=== PATIENT | male | born 1970 | race American Indian/Alaskan Native ===

== ENCOUNTER 2016-04-27 09:21 | Emergency (ER) | payer OTHER ==
[2016-04-27] MEDS ORDERED: MORPHINE IV ONE (13:36)
[2016-04-27] MEDS ORDERED: ZOFRAN IV ONE (13:36)
[2016-04-27] MEDS ORDERED: NACL 0.9% 1000 ML 1,000 ML IV ONE (13:45)
[2016-04-27 14:14] LABS: Basophils % (Auto) 1.2 % (0.0-1.8); Eosinophils % (Auto) 2.8 % (0.0-4.3); Hematocrit 40.5 % (35.5-45.6); Mean Corpuscular HGB Conc 35 % (32-34); Mean Corpuscular Hemoglobin 30 pg (28-32); Mean Corpuscular Volume 87 fl (84-94); Platelet Count 526 K/mm3 (140-440); Red Blood Count 4.65 M/mm3 (3.65-5.03); Red Cell Distribution Width 14.6 % (13.2-15.2); White Blood Count 8.7 K/mm3 (4.5-11.0)
[2016-04-27 14:23] LABS: Anion Gap 20 mmol/L; Blood Urea Nitrogen 10 mg/dL (9-20); Calcium 9.3 mg/dL (8.4-10.2); Carbon Dioxide 26 mmol/L (22-30); Chloride 100.7 mmol/L (98-107); Glucose 81 mg/dL (75-100); Potassium 4.4 mmol/L (3.6-5.0); Sodium 142 mmol/L (137-145)
[2016-04-27 14:24] LABS: Creatine Kinase MB 3.7 ng/mL (0.0-4.0)
[2016-04-27 14:26] LABS: Creatine Kinase 618 units/L (55-170)
[2016-04-27 14:38] LABS: Urine Drugs of Abuse Note Disclamer
[2016-04-27 14:52] LABS: Bilirubin,Urine NEG (Negative); Blood,Urine NEG (Negative); Ketones,Urine NEG (Negative); Leukocyte Esterase,Urine NEG (Negative); Mucus,Urine FEW /HPF; Nitrite,Urine NEG (Negative); Protein,Urine <15 mg/dL mg/dL (Negative); RBC,Urine < 1.0 /HPF (0.0-6.0); Urobilinogen,Urine < 2.0 mg/dL (<2.0)
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
--- NOTE | 2016-04-27 16:33 | Cat Scan Report ---
CT scan of abdomen and pelvis with IV contrast: Compared to 02/20/14. History: Right lower quadrant tenderness. Findings: Normal liver spleen and pancreas and gallbladder. No hydronephrosis. Normal bladder. No free intraperitoneal fluid. No evidence of adenopathy. Normal aorta. Gaseous colon with stool in colon. Diverticulosis sigmoid colon. No evidence of appendicitis. Impression: Stable cyst in right and left kidney. No hydronephrosis. No evidence of appendicitis. Diverticulosis sigmoid colon.
[2016-04-27 18:16] VITALS: BP 150/100
== END 2016-04-27 18:13 | disposition home or self-care (01) ==
LOC: ED 09:21
DX: T50.995A Adverse effect of other drugs, medicaments and biological substances, initial encounter (principal); I10 Essential (primary) hypertension; R00.2 Palpitations; F17.200 Nicotine dependence, unspecified, uncomplicated; Y92.9 Unspecified place or not applicable
CPT/HCPCS: 36415; 70450; 74177; 80048; 80307; 81001; 82550; 82553; 84439; 84443; 84484; 85025; 93005; 93010; 96361; 96374; 96375; 99284; J2270; J2405; J7030; Q9967

== ENCOUNTER 2017-04-04 09:08 | Emergency (ER) | payer SELFPAY ==
[2017-04-04 09:23] VITALS: BP 140/88
[2017-04-04 10:04] LABS: Basophils % (Auto) 0.6 % (0.0-1.8); Eosinophils % (Auto) 1.3 % (0.0-4.3); Hematocrit 43.9 % (35.5-45.6); Hemoglobin 15.1 gm/dl (11.8-15.2); Mean Corpuscular HGB Conc 34 % (32-34); Mean Corpuscular Hemoglobin 31 pg (28-32); Mean Corpuscular Volume 90 fl (84-94); Platelet Count 483 K/mm3 (140-440); Red Blood Count 4.91 M/mm3 (3.65-5.03); Red Cell Distribution Width 14.3 % (13.2-15.2); White Blood Count 8.6 K/mm3 (4.5-11.0)
[2017-04-04 10:28] LABS: Alanine Aminotransferase 35 units/L (7-56); Albumin 4.6 g/dL (3.9-5); Albumin/Globulin Ratio 1.4 %; Alkaline Phosphatase 69 units/L (35-129); Anion Gap 18 mmol/L; BUN/Creatinine Ratio 16; Blood Urea Nitrogen 11 mg/dL (9-20); Calcium 9.6 mg/dL (8.4-10.2); Carbon Dioxide 25 mmol/L (22-30); Chloride 97.5 mmol/L (98-107); Glucose 91 mg/dL (75-100); Lipase 55 units/L (13-60); Potassium 4.7 mmol/L (3.6-5.0); Sodium 136 mmol/L (137-145); Total Protein 7.9 g/dL (6.3-8.2)
[2017-04-04 10:42] LABS: Bilirubin,Urine NEG (Negative); Blood,Urine NEG (Negative); Ketones,Urine NEG (Negative); Leukocyte Esterase,Urine NEG (Negative); Nitrite,Urine NEG (Negative); Protein,Urine <15 mg/dL mg/dL (Negative); Urobilinogen,Urine < 2.0 mg/dL (<2.0); WBC,Urine < 1.0 /HPF (0.0-6.0)
== END 2017-04-04 10:02 | disposition left against medical advice (07) ==
LOC: ED 09:08
DX: R51 Headache (principal); R10.9 Unspecified abdominal pain; Z53.21 Procedure and treatment not carried out due to patient leaving prior to being seen by health care provider
CPT/HCPCS: 36415; 80053; 81001; 83690; 85025

== ENCOUNTER 2018-06-17 06:36 | Inpatient (IN) | payer OTHER, SELFPAY ==
[2018-06-17] MEDS ORDERED: TYLENOL ONE (06:58)
[2018-06-17] MEDS ORDERED: TYLENOL PO ONE (07:00)
[2018-06-17] MEDS ORDERED: NACL 0.9% 1000 ML 1,000 ML IV ONE ×2 (07:00→07:32)
[2018-06-17] MEDS ORDERED: ZOSYN/NS 4.5GM/100ML 4.5 GM/100 ML VIAL IV ONE (07:30)
[2018-06-17] MEDS ORDERED: PROTONIX IV ONE (07:32)
[2018-06-17] MEDS ORDERED: ZOFRAN IV ONE (07:32)
[2018-06-17] MEDS ORDERED: MORPHINE IV ONE ×2 (07:32→09:07)
--- NOTE | 2018-06-17 07:47 | XRay Report ---
AP CHEST: HISTORY: Hypertension AP view of the chest demonstrates a normal mediastinal and cardiac contour with clear lungs and normal bony and soft tissue structures. No significant change since 03/02/16. IMPRESSION: Unremarkable AP chest.
[2018-06-17 07:50] LABS: Basophils # (Auto) 0.1 K/mm3 (0.0-0.1); Basophils % (Auto) 0.7 % (0.0-1.8); Eosinophils # (Auto) 0.1 K/mm3 (0.0-0.4); Eosinophils % (Auto) 0.4 % (0.0-4.3); Hematocrit 40.4 % (35.5-45.6); Hemoglobin 14.3 gm/dl (11.8-15.2); Lymphocytes # (Auto) 1.2 K/mm3 (1.2-5.4); Lymphocytes % (Auto) 8.8 % (13.4-35.0); Mean Corpuscular HGB Conc 35 % (32-34); Mean Corpuscular Volume 90 fl (84-94); Monocytes # (Auto) 1.3 K/mm3 (0.0-0.8); Monocytes % (Auto) 9.5 % (0.0-7.3); Platelet Count 424 K/mm3 (140-440); Red Blood Count 4.47 M/mm3 (3.65-5.03); Red Cell Distribution Width 14.3 % (13.2-15.2)
[2018-06-17 08:09] LABS: Creatine Kinase MB 2.3 ng/mL (0.0-4.0)
[2018-06-17 08:11] LABS: Alanine Aminotransferase 35 units/L (7-56); Albumin 4.4 g/dL (3.9-5)
[2018-06-17 08:13] LABS: Bilirubin,Direct < 0.2 mg/dL (0-0.2)
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
--- NOTE | 2018-06-17 09:21 | Cat Scan Report ---
CT ABDOMEN PELVIS WITH CONTRAST: HISTORY: Peritonitis. COMPARISON: 04/27/16. TECHNIQUE: Helical CT in 1.25mm intervals following IV contrast. Sagittal and coronal reconstructions. FINDINGS: Lung bases: Normal. Liver: Normal. Biliary system: Normal. Pancreas: Normal. 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 There are 3 small splenule remaining in the left upper quadrant. Please correlate with history. Kidneys/ureters/bladder: Multiple small bilateral renal cysts are identified measuring up to 2 cm. No obvious mass, nephrolithiasis or hydronephrosis. The collecting systems and bladder are unremarkable. Adrenal glands: Normal. Aorta: Normal. Intestines: Diverticulosis of the distal colon is identified. There is a focus of circumferential thickening and inflammation in the mid descending colon consistent with acute diverticulitis. No evidence for free air or abscess at this time. Appendix: Normal. Pelvic viscera: Normal. Ascites: None. Adenopathy: None. Musculoskeletal: Normal. IMPRESSION: Acute diverticulitis of the descending colon. Bilateral renal cysts.
[2018-06-17] MEDS ORDERED: DILAUDID IV ONE (09:58)
[2018-06-17 09:59] LABS: Alanine Aminotransferase 35 units/L (7-56); Albumin 4.4 g/dL (3.9-5); BUN/Creatinine Ratio 14; Blood Urea Nitrogen 13 mg/dL (9-20); Calcium 9.4 mg/dL (8.4-10.2); Hemolysis Index 5
[2018-06-17] MEDS ORDERED: DILAUDID ONE (10:02)
[2018-06-17] MEDS ORDERED: FLAGYL 500 MG/100 ML 500 MG/100 ML BAG IV ONE (10:10)
[2018-06-17] MEDS: FLAGYL 500 MG/100 ML 500 MG/100 ML BAG IV SCH ×3 (10:13→21:42)
[2018-06-17] MEDS ORDERED: ASPIRIN PR ONE ×2 (10:19→11:35)
[2018-06-17 10:31] LABS: Bilirubin,Urine NEG (Negative); Blood,Urine NEG (Negative); Color,Urine Yellow (Yellow); Protein,Urine <15 mg/dL mg/dL (Negative); RBC,Urine < 1.0 /HPF (0.0-6.0); Urobilinogen,Urine < 2.0 mg/dL (<2.0); WBC,Urine < 1.0 /HPF (0.0-6.0)
[2018-06-17] MEDS ORDERED: APRESOLINE IV PRN (13:00)
[2018-06-17] MEDS ORDERED: MORPHINE IV PRN (13:02)
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
[2018-06-17] MEDS ORDERED: MAGNESIUM SULFATE IV ONE (13:07)
--- NOTE | 2018-06-17 13:24 | Progress Note ---
Assessment and Plan Full consult dictated 48 y/o male acute diverticulitis. no evidence of perforation or abscess formation at this time Abd - tender. + guarding LUQ imp: as above rec NPO except ice chips and meds IVF IV antibiotics will follow Selected Entries 06/17/18 12:53 Temperature 99.6 F Pulse Rate 81 Respiratory 20 Rate Blood Pressure 158/99 Laboratory Tests 06/17/18 06/17/18 06/17/18 07:25 07:25 07:34 WBC 13.5 H Hgb 14.3 Hct 40.4 Sodium 136 L Potassium 4.1 Chloride 101.8 Carbon Dioxide 25 BUN 13 Creatinine 0.9 Lactic Acid 2.50 H* Objective Vital Signs - 12hr 06/17/18 06/17/18 06/17/18 06:42 07:00 07:31 Temperature 100.2 F H Pulse Rate 98 H 93 H 98 H Respiratory 24 30 H 29 H Rate Blood Pressure 166/108 159/104 165/102 Blood Pressure [Left] O2 Sat by Pulse 100 98 Oximetry 06/17/18 06/17/18 06/17/18 07:52 08:00 08:19 Temperature Pulse Rate 94 H Respiratory 16 20 16 Rate Blood Pressure 166/100 Blood Pressure [Left] O2 Sat by Pulse 98 Oximetry 06/17/18 06/17/18 06/17/18 08:22 08:30 09:00 Temperature Pulse Rate 102 H 99 H Respiratory 16 21 13 Rate Blood Pressure 151/99 Blood Pressure [Left] O2 Sat by Pulse 96 98 Oximetry 06/17/18 06/17/18 06/17/18 09:11 09:15 09:21 Temperature Pulse Rate 94 H 101 H Respiratory 20 17 11 L Rate Blood Pressure 146/94 Blood Pressure [Left] O2 Sat by Pulse 97 97 Oximetry 06/17/18 06/17/18 06/17/18 09:30 09:41 09:51 Temperature Pulse Rate 95 H 94 H 96 H Respiratory 21 16 26 H Rate Blood Pressure 153/96 153/96 164/101 Blood Pressure [Left] O2 Sat by Pulse 96 Oximetry 06/17/18 06/17/18 06/17/18 10:00 10:05 10:11 Temperature Pulse Rate 90 91 H Respiratory 22 18 14 Rate Blood Pressure 168/106 168/106 Blood Pressure [Left] O2 Sat by Pulse 95 99 Oximetry 0306/17/18 06/17/18 10:21 10:30 10:35 Temperature Pulse Rate 91 H 93 H Respiratory 10 L 14 16 Rate Blood Pressure 158/93 157/94 Blood Pressure [Left] O2 Sat by Pulse 98 95 Oximetry 06/17/18 06/17/18 06/17/18 10:41 10:51 11:00 Temperature Pulse Rate 90 86 85 Respiratory 18 17 13 Rate Blood Pressure 157/94 157/94 147/85 Blood Pressure [Left] O2 Sat by Pulse 98 99 95 Oximetry 06/17/18 06/17/18 06/17/18 11:11 11:21 11:30 Temperature Pulse Rate 86 82 84 Respiratory 16 17 18 Rate Blood Pressure 147/85 147/85 146/87 Blood Pressure [Left] O2 Sat by Pulse 99 98 97 Oximetry 06/17/18 06/17/18 06/17/18 11:37 11:41 11:51 Temperature Pulse Rate 90 83 85 Respiratory 16 19 16 Rate Blood Pressure 146/87 152/93 Blood Pressure 146/87 [Left] O2 Sat by Pulse 98 98 98 Oximetry 06/17/18 06/17/18 06/17/18 12:00 12:08 12:11 Temperature 98.5 F Pulse Rate 82 80 Respiratory 15 19 Rate Blood Pressure 148/90 148/90 Blood Pressure [Left] O2 Sat by Pulse 97 98 Oximetry 06/17/18 12:53 Temperature 99.6 F Pulse Rate 81 Respiratory 20 Rate Blood Pressure 158/99 Blood Pressure [Left] O2 Sat by Pulse 96 Oximetry - Labs 06/17/18 07:25 06/17/18 07:25 Diabetes panel 06/17/18 06/17/18 Range/Units 07:25 07:34 Sodium 136 L (137-145) mmol/L Potassium 4.1 (3.6-5.0) mmol/L Chloride 101.8 (98-107) mmol/L Carbon Dioxide 25 (22-30) mmol/L BUN 13 (9-20) mg/dL Creatinine 0.9 (0.8-1.5) mg/dL Glucose 96 (75-100) mg/dL Calcium 9.4 (8.4-10.2) mg/dL AST 28 29 (5-40) units/L ALT 35 35 (7-56) units/L Alkaline Phosphatase 64 66 (35-129) units/L Total Protein 7.4 7.4 (6.3-8.2) g/dL Albumin 4.4 4.4 (3.9-5) g/dL Calcium panel 06/17/18 06/17/18 Range/Units 07:25 07:34 Calcium 9.4 (8.4-10.2) mg/dL Albumin 4.4 4.4 (3.9-5) g/dL Pituitary panel 06/17/18 Range/Units 07:25 Sodium 136 L (137-145) mmol/L Potassium 4.1 (3.6-5.0) mmol/L Chloride 101.8 (98-107) mmol/L Carbon Dioxide 25 (22-30) mmol/L BUN 13 (9-20) mg/dL Creatinine 0.9 (0.8-1.5) mg/dL Glucose 96 (75-100) mg/dL Calcium 9.4 (8.4-10.2) mg/dL Adrenal panel 06/17/18 06/17/18 Range/Units 07:25 07:34 Sodium 136 L (137-145) mmol/L Potassium 4.1 (3.6-5.0) mmol/L Chloride 101.8 (98-107) mmol/L Carbon Dioxide 25 (22-30) mmol/L BUN 13 (9-20) mg/dL Creatinine 0.9 (0.8-1.5) mg/dL Glucose 96 (75-100) mg/dL Calcium 9.4 (8.4-10.2) mg/dL Total Bilirubin 0.50 0.50 (0.1-1.2) mg/dL AST 28 29 (5-40) units/L ALT 35 35 (7-56) units/L Alkaline Phosphatase 64 66 (35-129) units/L Total Protein 7.4 7.4 (6.3-8.2) g/dL Albumin 4.4 4.4 (3.9-5) g/dL
[2018-06-17] MEDS: D5NS 1,000 ML IV SCH (13:36)
[2018-06-17] MEDS ORDERED: MAGNESIUM SULFATE 1 GM in NACL 0.9% 50 ML IV ONE (14:00)
[2018-06-17] MEDS: DILAUDID IV PRN ×3 (14:08→20:21)
[2018-06-17] MEDS: ZOFRAN IV PRN ×2 (14:08→22:27)
[2018-06-17] MEDS: LEVAQUIN 750MG/150ML 750 MG/150 ML BAG IV SCH (17:25)
[2018-06-17] MEDS: MORPHINE IV PRN ×2 (18:13→22:27)
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
[2018-06-18] MEDS: DILAUDID IV PRN ×4 (01:53→23:25)
[2018-06-18] MEDS: D5NS 1,000 ML IV SCH ×2 (02:02→16:14)
[2018-06-18] MEDS ORDERED: ATIVAN IV PRN (03:29)
[2018-06-18] MEDS: MORPHINE IV PRN ×3 (04:28→21:06)
[2018-06-18] MEDS: FLAGYL 500 MG/100 ML 500 MG/100 ML BAG IV SCH ×3 (05:11→21:01)
[2018-06-18 06:10] LABS: BUN/Creatinine Ratio 10; Blood Urea Nitrogen 7 mg/dL (9-20); Calcium 9.1 mg/dL (8.4-10.2); Hemolysis Index 5
[2018-06-18 06:24] LABS: Basophils # (Auto) 0.1 K/mm3 (0.0-0.1); Basophils % (Auto) 0.4 % (0.0-1.8); Eosinophils % (Auto) 0.2 % (0.0-4.3); Hematocrit 40.1 % (35.5-45.6); Hemoglobin 13.5 gm/dl (11.8-15.2); Lymphocytes # (Auto) 1.3 K/mm3 (1.2-5.4); Lymphocytes % (Auto) 9.2 % (13.4-35.0); Mean Corpuscular HGB Conc 34 % (32-34); Mean Corpuscular Volume 91 fl (84-94); Monocytes # (Auto) 0.9 K/mm3 (0.0-0.8); Monocytes % (Auto) 6.1 % (0.0-7.3); Platelet Count 406 K/mm3 (140-440); Red Blood Count 4.41 M/mm3 (3.65-5.03)
--- NOTE | 2018-06-18 07:49 | Progress Note ---
Assessment and Plan Pt states "feeling better" Abd still significantly tender. 1+ distention wbc slightly elevated from previous results imp: significant diverticulitis stable ID eval continue present care Selected Entries 06/18/18 05:12 Temperature 98.1 F Pulse Rate 88 Respiratory 18 Rate Blood Pressure 143/93 Laboratory Tests 06/17/18 06/18/18 06/18/18 07:25 04:41 04:41 WBC 13.5 H 14.2 H Hgb 13.5 Hct 40.1 Sodium 135 L Potassium 4.2 Chloride 97.4 L Carbon Dioxide 26 Anion Gap 16 BUN 7 L Creatinine 0.7 L Objective Vital Signs - 12hr 06/17/18 06/17/18 06/17/18 20:14 20:21 20:27 Temperature 99.0 F Pulse Rate 78 Pulse Rate [ Apical] Respiratory 18 18 Rate Respiratory 18 Rate [Abdomen] Blood Pressure 162/99 O2 Sat by Pulse 97 Oximetry 06/17/18 06/17/18 06/17/18 20:30 20:51 21:17 Temperature Pulse Rate 74 Pulse Rate [ 70 Apical] Respiratory 18 18 Rate Respiratory Rate [Abdomen] Blood Pressure O2 Sat by Pulse 98 Oximetry 06/17/18 06/17/18 06/18/18 22:27 22:57 00:08 Temperature 98.0 F Pulse Rate 89 Pulse Rate [ Apical] Respiratory 18 18 18 Rate Respiratory Rate [Abdomen] Blood Pressure 178/108 O2 Sat by Pulse 98 Oximetry 06/18/18 06/18/18 06/18/18 01:53 02:23 04:06 Temperature 98.0 F Pulse Rate 77 Pulse Rate [ Apical] Respiratory 18 18 18 Rate Respiratory Rate [Abdomen] Blood Pressure 176/103 O2 Sat by Pulse 96 Oximetry 06/18/18 06/18/18 06/18/18 04:28 04:58 05:12 Temperature 98.1 F Pulse Rate 77 88 Pulse Rate [ Apical] Respiratory 18 18 18 Rate Respiratory Rate [Abdomen] Blood Pressure 176/103 143/93 O2 Sat by Pulse 98 Oximetry - Labs 06/18/18 04:41 06/18/18 04:41 Diabetes panel 06/17/18 06/17/18 06/18/18 Range/Units 07:25 07:34 04:41 Sodium 136 L 135 L (137-145) mmol/L Potassium 4.1 4.2 (3.6-5.0) mmol/L Chloride 101.8 97.4 L (98-107) mmol/L Carbon Dioxide 25 26 (22-30) mmol/L BUN 13 7 L (9-20) mg/dL Creatinine 0.9 0.7 L (0.8-1.5) mg/dL Glucose 96 82 (75-100) mg/dL Calcium 9.4 9.1 (8.4-10.2) mg/dL AST 28 29 (5-40) units/L ALT 35 35 (7-56) units/L Alkaline Phosphatase 64 66 (35-129) units/L Total Protein 7.4 7.4 (6.3-8.2) g/dL Albumin 4.4 4.4 (3.9-5) g/dL Calcium panel 06/17/18 06/17/18 06/18/18 Range/Units 07:25 07:34 04:41 Calcium 9.4 9.1 (8.4-10.2) mg/dL Albumin 4.4 4.4 (3.9-5) g/dL Pituitary panel 06/17/18 06/18/18 Range/Units 07:25 04:41 Sodium 136 L 135 L (137-145) mmol/L Potassium 4.1 4.2 (3.6-5.0) mmol/L Chloride 101.8 97.4 L (98-107) mmol/L Carbon Dioxide 25 26 (22-30) mmol/L BUN 13 7 L (9-20) mg/dL Creatinine 0.9 0.7 L (0.8-1.5) mg/dL Glucose 96 82 (75-100) mg/dL Calcium 9.4 9.1 (8.4-10.2) mg/dL Adrenal panel 06/17/18 06/17/18 06/18/18 Range/Units 07:25 07:34 04:41 Sodium 136 L 135 L (137-145) mmol/L Potassium 4.1 4.2 (3.6-5.0) mmol/L Chloride 101.8 97.4 L (98-107) mmol/L Carbon Dioxide 25 26 (22-30) mmol/L BUN 13 7 L (9-20) mg/dL Creatinine 0.9 0.7 L (0.8-1.5) mg/dL Glucose 96 82 (75-100) mg/dL Calcium 9.4 9.1 (8.4-10.2) mg/dL Total Bilirubin 0.50 0.50 (0.1-1.2) mg/dL AST 28 29 (5-40) units/L ALT 35 35 (7-56) units/L Alkaline Phosphatase 64 66 (35-129) units/L Total Protein 7.4 7.4 (6.3-8.2) g/dL Albumin 4.4 4.4 (3.9-5) g/dL
[2018-06-18] MEDS: ZOFRAN IV PRN ×2 (08:45→18:01)
[2018-06-18] MEDS: VITAMIN B-1 PO SCH (09:27)
[2018-06-18] MEDS: HABITROL TD SCH (09:27)
[2018-06-18] MEDS: LEVAQUIN 750MG/150ML 750 MG/150 ML BAG IV SCH (09:27)
[2018-06-18] MEDS ORDERED: VITAMIN B-1 100 MG in NACL 0.9% 50 ML IV SCH (10:00)
--- NOTE | 2018-06-18 14:45 | Progress Note ---
Assessment and Plan Assessment and plan: Acute diverticulitis Sepsis due to diverticulitis - - NPO for now, cont abx, iv fluid - GS recommended medical Management -Discussed with Dr. Ferro hypomagnesemia, Now resolved aftert replaced HTN, essential, hydralazine iv as needed Tobacco abuse, nicotine patch Alcohol abuse, thiamin iv, ativan as needed - Dvt px with SCD History Interval history: This is a 48 y/o AAM [facility] h/o diverticulosis presented with sudden onset of abdominal pain N/V/D. Denies any bloody BM. Hospitalist Physical - Physical exam Narrative exam: GEN: Not in acute distress, lying in bed, obese HEENT: Normocephalic, atraumatic, Neck: supple, No JVD Lungs: Clear to auscultation bilat, no crackles, no wheeze Abd:soft, tender, no rebound, non distended, normal bowel sounds Ext: No edema, no clubbing, no cyanosis Neuro:Awake,alert,oriented X 3, no focal signs Skin:No rash Psych: normal mood - Constitutional Vitals: Temp Pulse Resp BP Pulse Ox 98.2 F 94 H 20 147/95 97 06/18/18 08:55 06/18/18 10:00 06/18/18 08:55 06/18/18 08:55 06/18/18 10:00 Results - Labs CBC & Chem 7: 06/18/18 04:41 06/18/18 04:41 Labs: Laboratory Last Values WBC 14.2 K/mm3 (4.5-11.0) H 06/18/18 04:41 RBC 4.41 M/mm3 (3.65-5.03) 06/18/18 04:41 Hgb 13.5 gm/dl (11.8-15.2) 06/18/18 04:41 Hct 40.1 % (35.5-45.6) 06/18/18 04:41 MCV 91 fl (84-94) 06/18/18 04:41 MCH 31 pg (28-32) 06/18/18 04:41 MCHC 34 % (32-34) 06/18/18 04:41 RDW 14.0 % (13.2-15.2) 06/18/18 04:41 Plt Count 406 K/mm3 (140-440) 06/18/18 04:41 Lymph % (Auto) 9.2 % (13.4-35.0) L 06/18/18 04:41 [place] % (Auto) 6.1 % (0.0-7.3) 06/18/18 04:41 Eos % (Auto) 0.2 % (0.0-4.3) 06/18/18 04:41 Baso % (Auto) 0.4 % (0.0-1.8) 06/18/18 04:41 Lymph # 1.3 K/mm3 (1.2-5.4) 06/18/18 04:41 [place] # 0.9 K/mm3 (0.0-0.8) H 06/18/18 04:41 Eos # 0.0 K/mm3 (0.0-0.4) 06/18/18 04:41 Baso # 0.1 K/mm3 (0.0-0.1) 06/18/18 04:41 Seg Neutrophils % 84.1 % (40.0-70.0) H 06/18/18 04:41 Seg Neutrophils # 11.9 K/mm3 (1.8-7.7) H 06/18/18 04:41 Sodium 135 mmol/L (137-145) L 06/18/18 04:41 Potassium 4.2 mmol/L (3.6-5.0) 06/18/18 04:41 Chloride 97.4 mmol/L (98-107) L 06/18/18 04:41 Carbon Dioxide 26 mmol/L (22-30) 06/18/18 04:41 Anion Gap 16 mmol/L 06/18/18 04:41 BUN 7 mg/dL (9-20) L 06/18/18 04:41 Creatinine 0.7 mg/dL (0.8-1.5) L 06/18/18 04:41 Estimated GFR > 60 ml/min 06/18/18 04:41 BUN/Creatinine Ratio 10 % 06/18/18 04:41 Glucose 82 mg/dL (75-100) 06/18/18 04:41 Lactic Acid 1.60 mmol/L (0.7-2.0) 06/17/18 10:18 Calcium 9.1 mg/dL (8.4-10.2) 06/18/18 04:41 Magnesium 1.90 mg/dL (1.7-2.3) 06/18/18 04:41 Total Bilirubin 0.50 mg/dL (0.1-1.2) 06/17/18 07:34 Direct Bilirubin < 0.2 mg/dL (0-0.2) 06/17/18 07:34 Indirect Bilirubin 0.3 mg/dL 06/17/18 07:34 AST 29 units/L (5-40) 06/17/18 07:34 ALT 35 units/L (7-56) 06/17/18 07:34 Alkaline Phosphatase 66 units/L (35-129) 06/17/18 07:34 Total Creatine Kinase 356 units/L (55-170) H 06/17/18 07:34 CK-MB (CK-2) 2.3 ng/mL (0.0-4.0) 06/17/18 07:34 CK-MB (CK-2) Rel Index 0.6 (0-4) 06/17/18 07:34 Troponin T < 0.010 ng/mL (0.00-0.029) 06/17/18 07:34 NT-Pro-B Natriuret Pep 9.44 pg/mL (0-450) 06/17/18 07:34 Total Protein 7.4 g/dL (6.3-8.2) 06/17/18 07:34 Albumin 4.4 g/dL (3.9-5) 06/17/18 07:34 Albumin/Globulin Ratio 1.5 % 06/17/18 07:34 Lipase 57 units/L (13-60) 06/17/18 07:34 Urine Color Yellow (Yellow) 06/17/18 10:00 Urine Turbidity Clear (Clear) 06/17/18 10:00 Urine pH 8.0 (5.0-7.0) H 06/17/18 10:00 Ur Specific [place] 1.034 (1.003-1.030) H 06/17/18 10:00 Urine Protein <15 mg/dl mg/dL (Negative) 06/17/18 10:00 Urine Glucose (UA) Neg mg/dL (Negative) 06/17/18 10:00 Urine Ketones Neg mg/dL (Negative) 06/17/18 10:00 Urine Blood Neg (Negative) 06/17/18 10:00 Urine Nitrite Neg (Negative) 06/17/18 10:00 Urine Bilirubin Neg (Negative) 06/17/18 10:00 Urine Urobilinogen < 2.0 mg/dL (<2.0) 06/17/18 10:00 Ur Leukocyte Esterase Neg (Negative) 06/17/18 10:00 Urine WBC (Auto) < 1.0 /HPF (0.0-6.0) 06/17/18 10:00 Urine RBC (Auto) < 1.0 /HPF (0.0-6.0) 06/17/18 10:00 Blood Type O POSITIVE 06/17/18 07:34 Antibody Screen Negative 06/17/18 07:34
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
[2018-06-18] MEDS: ROCEPHIN/NS 2 GM/100 ML 2 GM/100 ML BAG IV SCH (19:01)
[2018-06-19] MEDS: ZOFRAN IV PRN ×2 (03:11→13:18)
[2018-06-19] MEDS: MORPHINE IV PRN ×3 (03:11→15:31)
[2018-06-19 05:40] LABS: Hematocrit 37.8 % (35.5-45.6); Hemoglobin 13.3 gm/dl (11.8-15.2); Mean Corpuscular HGB Conc 35 % (32-34); Mean Corpuscular Volume 91 fl (84-94); Platelet Count 368 K/mm3 (140-440); Red Blood Count 4.15 M/mm3 (3.65-5.03); Red Cell Distribution Width 13.9 % (13.2-15.2)
[2018-06-19] MEDS: DILAUDID IV PRN ×4 (05:50→20:48)
[2018-06-19] MEDS: FLAGYL 500 MG/100 ML 500 MG/100 ML BAG IV SCH ×3 (05:50→22:37)
[2018-06-19 06:08] LABS: BUN/Creatinine Ratio 9; Blood Urea Nitrogen 7 mg/dL (9-20); Calcium 9.1 mg/dL (8.4-10.2); Hemolysis Index 5
--- NOTE | 2018-06-19 09:25 | Progress Note ---
Assessment and Plan Assessment and plan: Acute diverticulitis Sepsis due to diverticulitis - - NPO for now, cont abx, iv fluid -Surgeon recommended medical Management -Discussed with Dr. Ferro hypomagnesemia, Now resolved after replaced HTN, essential, hydralazine iv as needed Tobacco abuse, nicotine patch Alcohol abuse, thiamin iv, ativan as needed DVT prophylaxis. heparin subcut History Interval history: This is a 48 y/o AAM wth h/o diverticulosis presented with sudden onset of abdominal pain N/V/D. less abdominal pain Hospitalist Physical - Physical exam Narrative exam: GEN: Not in acute distress, lying in bed, obese HEENT: Normocephalic, atraumatic, Neck: supple, No JVD Lungs: Clear to auscultation bilat, no crackles, no wheeze Abd:soft, tender left lower abd, no rebound, non distended, normal bowel sounds Ext: No edema, no clubbing, no cyanosis Neuro:Awake,alert,oriented X 3, no focal signs Skin:No rash Psych: normal mood - Constitutional Vitals: Temp Pulse Resp BP Pulse Ox 98.2 F 87 20 136/100 95 06/19/18 08:49 06/19/18 08:49 06/19/18 08:49 06/19/18 08:49 06/19/18 08:49 Results - Labs CBC & Chem 7: 06/19/18 05:13 06/19/18 05:13 Labs: Laboratory Last Values WBC 10.9 K/mm3 (4.5-11.0) 06/19/18 05:13 RBC 4.15 M/mm3 (3.65-5.03) 06/19/18 05:13 Hgb 13.3 gm/dl (11.8-15.2) 06/19/18 05:13 Hct 37.8 % (35.5-45.6) 06/19/18 05:13 MCV 91 fl (84-94) 06/19/18 05:13 MCH 32 pg (28-32) 06/19/18 05:13 MCHC 35 % (32-34) H 06/19/18 05:13 RDW 13.9 % (13.2-15.2) 06/19/18 05:13 Plt Count 368 K/mm3 (140-440) 06/19/18 05:13 Lymph % (Auto) 9.2 % (13.4-35.0) L 06/18/18 04:41 [place] % (Auto) 6.1 % (0.0-7.3) 06/18/18 04:41 Eos % (Auto) 0.2 % (0.0-4.3) 06/18/18 04:41 Baso % (Auto) 0.4 % (0.0-1.8) 06/18/18 04:41 Lymph # 1.3 K/mm3 (1.2-5.4) 06/18/18 04:41 [place] # 0.9 K/mm3 (0.0-0.8) H 06/18/18 04:41 Eos # 0.0 K/mm3 (0.0-0.4) 06/18/18 04:41 Baso # 0.1 K/mm3 (0.0-0.1) 06/18/18 04:41 Seg Neutrophils % 84.1 % (40.0-70.0) H 06/18/18 04:41 Seg Neutrophils # 11.9 K/mm3 (1.8-7.7) H 06/18/18 04:41 Sodium 135 mmol/L (137-145) L 06/19/18 05:13 Potassium 4.1 mmol/L (3.6-5.0) 06/19/18 05:13 Chloride 100.2 mmol/L (98-107) 06/19/18 05:13 Carbon Dioxide 25 mmol/L (22-30) 06/19/18 05:13 Anion Gap 14 mmol/L 06/19/18 05:13 BUN 7 mg/dL (9-20) L 06/19/18 05:13 Creatinine 0.8 mg/dL (0.8-1.5) 06/19/18 05:13 Estimated GFR > 60 ml/min 06/19/18 05:13 BUN/Creatinine Ratio 9 % 06/19/18 05:13 Glucose 86 mg/dL (75-100) 06/19/18 05:13 Lactic Acid 1.60 mmol/L (0.7-2.0) 06/17/18 10:18 Calcium 9.1 mg/dL (8.4-10.2) 06/19/18 05:13 Magnesium 1.90 mg/dL (1.7-2.3) 06/18/18 04:41 Total Bilirubin 0.50 mg/dL (0.1-1.2) 06/17/18 07:34 Direct Bilirubin < 0.2 mg/dL (0-0.2) 06/17/18 07:34 Indirect Bilirubin 0.3 mg/dL 06/17/18 07:34 AST 29 units/L (5-40) 06/17/18 07:34 ALT 35 units/L (7-56) 06/17/18 07:34 Alkaline Phosphatase 66 units/L (35-129) 06/17/18 07:34 Total Creatine Kinase 356 units/L (55-170) H 06/17/18 07:34 CK-MB (CK-2) 2.3 ng/mL (0.0-4.0) 06/17/18 07:34 CK-MB (CK-2) Rel Index 0.6 (0-4) 06/17/18 07:34 Troponin T < 0.010 ng/mL (0.00-0.029) 06/17/18 07:34 NT-Pro-B Natriuret Pep 9.44 pg/mL (0-450) 06/17/18 07:34 Total Protein 7.4 g/dL (6.3-8.2) 06/17/18 07:34 Albumin 4.4 g/dL (3.9-5) 06/17/18 07:34 Albumin/Globulin Ratio 1.5 % 06/17/18 07:34 Lipase 57 units/L (13-60) 06/17/18 07:34 Urine Color Yellow (Yellow) 06/17/18 10:00 Urine Turbidity Clear (Clear) 06/17/18 10:00 Urine pH 8.0 (5.0-7.0) H 06/17/18 10:00 Ur Specific [place] 1.034 (1.003-1.030) H 06/17/18 10:00 Urine Protein <15 mg/dl mg/dL (Negative) 06/17/18 10:00 Urine Glucose (UA) Neg mg/dL (Negative) 06/17/18 10:00 Urine Ketones Neg mg/dL (Negative) 06/17/18 10:00 Urine Blood Neg (Negative) 06/17/18 10:00 Urine Nitrite Neg (Negative) 06/17/18 10:00 Urine Bilirubin Neg (Negative) 06/17/18 10:00 Urine Urobilinogen < 2.0 mg/dL (<2.0) 06/17/18 10:00 Ur Leukocyte Esterase Neg (Negative) 06/17/18 10:00 Urine WBC (Auto) < 1.0 /HPF (0.0-6.0) 06/17/18 10:00 Urine RBC (Auto) < 1.0 /HPF (0.0-6.0) 06/17/18 10:00 Blood Type O POSITIVE 06/17/18 07:34 Antibody Screen Negative 06/17/18 07:34
[2018-06-19] MEDS: HABITROL TD SCH (10:24)
[2018-06-19] MEDS: VITAMIN B-1 PO SCH (10:24)
--- NOTE | 2018-06-19 10:51 | Progress Note ---
Assessment and Plan Cultures: 06/17/2018 blood culture: No growth 06/17/2018 urine culture: No growth A/P: 48-year-old male with history of diverticulosis admitted with: 1) Sepsis Resolved, secondary to acute descending colon diverticulitis: CT without any evidence of perforation or abscess. Gen Surg following. On conservative management. 2) Significant tobacco abuse: Smoking cessation advised. 3) Alcohol abuse: Monitor for withdrawal. Recs: Continue IV ceftriaxone, D2 Continue Flagyl, D3 anticipate discharge on Po Augmentin 875 bid to complete total of 10 days ending 06-26-18 CBC ordered for tomorrow [facility] M: [phone] O:[phone] Subjective Date of service: 06/19/18 Interval history: Patient seen and examined. No acute distress. Reports generalized weakness, no SOB. No fevers. Objective - Exam Narrative Exam: Constitutional: Alert, cooperative. No acute distress Head, Ears, Nose: Normocephalic, atraumatic. External ears, nose normal Eyes: Conjunctivae/corneas clear. No icterus. No ptosis. Neck: Supple, no meningeal signs Oral: dentition fair, multiple fillings, no thrush Cardiovascular: S1, S2 normal. Respiratory: Good air entry, clear to auscultation bilaterally GI: Soft, diffuse tenderness; bowel sounds + Musculoskeletal: No pedal edema, no cyanosis. Skin: No rash or abscess Hem/Lymphatic: No palpable cervical or supraclavicular nodes. No lymphangitis Psych: Mood ok. Affect normal Neurological: Awake, alert, oriented. No gross abnormality - Constitutional Vitals: Vital Signs Temp Pulse Resp BP Pulse Ox 98.2 F 87 20 136/100 95 06/19/18 08:49 06/19/18 08:49 06/19/18 08:49 06/19/18 08:49 06/19/18 08:49 Temperature -Last 24 Hours Temperature 98.2 F Temperature 99.4 F Temperature 98.9 F Temperature 99.3 F Temperature 98.9 F - Labs CBC & Chem 7: 06/19/18 05:13 06/19/18 05:13 Labs: Abnormal lab results 06/19/18 06/19/18 Range/Units 05:13 05:13 MCHC 35 H (32-34) % Sodium 135 L (137-145) mmol/L BUN 7 L (9-20) mg/dL
--- NOTE | 2018-06-19 13:20 | Progress Note ---
Assessment and Plan Pt still in pain but "feeling better". "Can walk around better" Abd soft. still persistent L flank & LUQ abd tenderness wbc down stable keep NPO continue present care Selected Entries 06/19/18 12:09 Temperature 98.6 F Pulse Rate 79 Respiratory 20 Rate Blood Pressure 149/97 Laboratory Tests 06/18/18 06/19/18 04:41 05:13 WBC 14.2 H 10.9 Objective Vital Signs - 12hr 06/19/18 06/19/18 06/19/18 03:11 03:27 03:41 Temperature 99.4 F Pulse Rate 83 Respiratory 18 18 18 Rate Blood Pressure 145/96 O2 Sat by Pulse 96 Oximetry 06/19/18 06/19/18 06/19/18 05:50 06:20 08:49 Temperature 98.2 F Pulse Rate 87 Respiratory 18 18 20 Rate Blood Pressure 136/100 O2 Sat by Pulse 95 Oximetry 06/19/18 12:09 Temperature 98.6 F Pulse Rate 79 Respiratory 20 Rate Blood Pressure 149/97 O2 Sat by Pulse 96 Oximetry - Labs 06/19/18 05:13 06/19/18 05:13 Diabetes panel 06/19/18 Range/Units 05:13 Sodium 135 L (137-145) mmol/L Potassium 4.1 (3.6-5.0) mmol/L Chloride 100.2 (98-107) mmol/L Carbon Dioxide 25 (22-30) mmol/L BUN 7 L (9-20) mg/dL Creatinine 0.8 (0.8-1.5) mg/dL Glucose 86 (75-100) mg/dL Calcium 9.1 (8.4-10.2) mg/dL Calcium panel 06/19/18 Range/Units 05:13 Calcium 9.1 (8.4-10.2) mg/dL Pituitary panel 06/19/18 Range/Units 05:13 Sodium 135 L (137-145) mmol/L Potassium 4.1 (3.6-5.0) mmol/L Chloride 100.2 (98-107) mmol/L Carbon Dioxide 25 (22-30) mmol/L BUN 7 L (9-20) mg/dL Creatinine 0.8 (0.8-1.5) mg/dL Glucose 86 (75-100) mg/dL Calcium 9.1 (8.4-10.2) mg/dL Adrenal panel 06/19/18 Range/Units 05:13 Sodium 135 L (137-145) mmol/L Potassium 4.1 (3.6-5.0) mmol/L Chloride 100.2 (98-107) mmol/L Carbon Dioxide 25 (22-30) mmol/L BUN 7 L (9-20) mg/dL Creatinine 0.8 (0.8-1.5) mg/dL Glucose 86 (75-100) mg/dL Calcium 9.1 (8.4-10.2) mg/dL
[2018-06-19] MEDS: HEPARIN SUB-Q SCH ×2 (13:24→22:37)
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
[2018-06-19] MEDS: D5NS 1,000 ML IV SCH (17:28)
[2018-06-19] MEDS: ROCEPHIN/NS 2 GM/100 ML 2 GM/100 ML BAG IV SCH (17:53)
[2018-06-20] MEDS: DILAUDID IV PRN ×6 (00:23→22:03)
[2018-06-20] MEDS: FLAGYL 500 MG/100 ML 500 MG/100 ML BAG IV SCH ×3 (05:18→22:02)
[2018-06-20] MEDS: HEPARIN SUB-Q SCH ×3 (05:19→22:02)
[2018-06-20] MEDS: ZOFRAN IV PRN ×3 (05:28→22:22)
--- NOTE | 2018-06-20 08:11 | Progress Note ---
Assessment and Plan Pt continues to slowly feel better. Abd soft. decreased tenderness but still present keep npo until pain subsides continue present care Objective Vital Signs - 12hr 06/19/18 06/20/18 23:22 04:35 Temperature 99.3 F 99.1 F Pulse Rate 88 83 Respiratory 18 18 Rate Blood Pressure 145/93 162/111 O2 Sat by Pulse 95 98 Oximetry - Labs 06/19/18 05:13 06/19/18 05:13
[2018-06-20] MEDS: HABITROL TD SCH (09:57)
[2018-06-20] MEDS: VITAMIN B-1 PO SCH (09:57)
--- NOTE | 2018-06-20 10:26 | Progress Note ---
Assessment and Plan Cultures: 06/17/2018 blood culture: No growth 06/17/2018 urine culture: No growth 06/18/2018 MRSA PCR: negative A/P: 48-year-old male with history of diverticulosis admitted with: 1) Sepsis Resolved, secondary to acute descending colon diverticulitis: CT without any evidence of perforation or abscess. Gen Surg following. On conservative management. 2) Significant tobacco abuse: Smoking cessation advised. 3) Alcohol abuse: Monitor for withdrawal. Recs: Continue IV ceftriaxone, D3 Continue Flagyl, D4 anticipate discharge on Po Augmentin 875 bid to complete total of 10 days ending 06-26-18 [facility] M: [phone] O:[phone] Subjective Date of service: 06/20/18 Interval history: Patient seen and examined. Continued left side pain and generalized weakness. No fevers. Objective - Exam Narrative Exam: Constitutional: Alert, cooperative. Left side pain, 8/10 on numeric pain scale. Head, Ears, Nose: Normocephalic, atraumatic. External ears, nose normal Eyes: Conjunctivae/corneas clear. No icterus. No ptosis. Neck: Supple, no meningeal signs Oral: dentition fair, multiple fillings, no thrush Cardiovascular: S1, S2 normal. Respiratory: Good air entry, clear to auscultation bilaterally GI: Soft, left side pain and tenderness; bowel sounds + Musculoskeletal: No pedal edema, no cyanosis. Skin: No rash or abscess Hem/Lymphatic: No palpable cervical or supraclavicular nodes. No lymphangitis Psych: Mood ok. Affect normal Neurological: Awake, alert, oriented. No gross abnormality - Constitutional Vitals: Vital Signs Temp Pulse Resp BP Pulse Ox 99.1 F 83 18 162/111 98 06/20/18 04:35 06/20/18 04:35 06/20/18 04:35 06/20/18 04:35 06/20/18 04:35 Temperature -Last 24 Hours Temperature 99.1 F Temperature 99.3 F Temperature 98.4 F Temperature 98.6 F - Labs CBC & Chem 7: 06/19/18 05:13 06/19/18 05:13
[2018-06-20] MEDS: D5NS 1,000 ML IV SCH (13:26)
--- NOTE | 2018-06-20 17:35 | Progress Note ---
Assessment and Plan Assessment and plan: Acute diverticulitis Continue NPO as per Surgeon Navin Sepsis due to diverticulitis - NPO for now, cont abx, iv fluid -Surgeon recommended medical Management -Discussed with Dr. Ferro hypomagnesemia, Now resolved after replaced HTN, essential, hydralazine iv as needed Tobacco abuse, nicotine patch Alcohol abuse, thiamin iv, ativan as needed DVT prophylaxis. heparin subcut History Interval history: This is a 48 y/o AAM wth h/o diverticulosis presented with sudden onset of abdominal pain N/V/D. less abdominal pain heartburn Hospitalist Physical - Physical exam Narrative exam: GEN: Not in acute distress, lying in bed, obese HEENT: Normocephalic, atraumatic, Neck: supple, No JVD Lungs: Clear to auscultation bilat, no crackles, no wheeze Abd:soft, tender left lower abd, no rebound, non distended, normal bowel sounds Ext: No edema, no clubbing, no cyanosis Neuro:Awake,alert,oriented X 3, no focal signs Skin:No rash Psych: normal mood - Constitutional Vitals: Temp Pulse Resp BP Pulse Ox 99.1 F 83 18 162/111 98 06/20/18 04:35 06/20/18 04:35 06/20/18 04:35 06/20/18 04:35 06/20/18 04:35 Results - Labs CBC & Chem 7: 06/19/18 05:13 06/19/18 05:13 Labs: Laboratory Last Values WBC 10.9 K/mm3 (4.5-11.0) 06/19/18 05:13 RBC 4.15 M/mm3 (3.65-5.03) 06/19/18 05:13 Hgb 13.3 gm/dl (11.8-15.2) 06/19/18 05:13 Hct 37.8 % (35.5-45.6) 06/19/18 05:13 MCV 91 fl (84-94) 06/19/18 05:13 MCH 32 pg (28-32) 06/19/18 05:13 MCHC 35 % (32-34) H 06/19/18 05:13 RDW 13.9 % (13.2-15.2) 06/19/18 05:13 Plt Count 368 K/mm3 (140-440) 06/19/18 05:13 Lymph % (Auto) 9.2 % (13.4-35.0) L 06/18/18 04:41 [place] % (Auto) 6.1 % (0.0-7.3) 06/18/18 04:41 Eos % (Auto) 0.2 % (0.0-4.3) 06/18/18 04:41 Baso % (Auto) 0.4 % (0.0-1.8) 06/18/18 04:41 Lymph # 1.3 K/mm3 (1.2-5.4) 06/18/18 04:41 [place] # 0.9 K/mm3 (0.0-0.8) H 06/18/18 04:41 Eos # 0.0 K/mm3 (0.0-0.4) 06/18/18 04:41 Baso # 0.1 K/mm3 (0.0-0.1) 06/18/18 04:41 Seg Neutrophils % 84.1 % (40.0-70.0) H 06/18/18 04:41 Seg Neutrophils # 11.9 K/mm3 (1.8-7.7) H 06/18/18 04:41 Sodium 135 mmol/L (137-145) L 06/19/18 05:13 Potassium 4.1 mmol/L (3.6-5.0) 06/19/18 05:13 Chloride 100.2 mmol/L (98-107) 06/19/18 05:13 Carbon Dioxide 25 mmol/L (22-30) 06/19/18 05:13 Anion Gap 14 mmol/L 06/19/18 05:13 BUN 7 mg/dL (9-20) L 06/19/18 05:13 Creatinine 0.8 mg/dL (0.8-1.5) 06/19/18 05:13 Estimated GFR > 60 ml/min 06/19/18 05:13 BUN/Creatinine Ratio 9 % 06/19/18 05:13 Glucose 86 mg/dL (75-100) 06/19/18 05:13 Lactic Acid 1.60 mmol/L (0.7-2.0) 06/17/18 10:18 Calcium 9.1 mg/dL (8.4-10.2) 06/19/18 05:13 Magnesium 1.90 mg/dL (1.7-2.3) 06/18/18 04:41 Total Bilirubin 0.50 mg/dL (0.1-1.2) 06/17/18 07:34 Direct Bilirubin < 0.2 mg/dL (0-0.2) 06/17/18 07:34 Indirect Bilirubin 0.3 mg/dL 06/17/18 07:34 AST 29 units/L (5-40) 06/17/18 07:34 ALT 35 units/L (7-56) 06/17/18 07:34 Alkaline Phosphatase 66 units/L (35-129) 06/17/18 07:34 Total Creatine Kinase 356 units/L (55-170) H 06/17/18 07:34 CK-MB (CK-2) 2.3 ng/mL (0.0-4.0) 06/17/18 07:34 CK-MB (CK-2) Rel Index 0.6 (0-4) 06/17/18 07:34 Troponin T < 0.010 ng/mL (0.00-0.029) 06/17/18 07:34 NT-Pro-B Natriuret Pep 9.44 pg/mL (0-450) 06/17/18 07:34 Total Protein 7.4 g/dL (6.3-8.2) 06/17/18 07:34 Albumin 4.4 g/dL (3.9-5) 06/17/18 07:34 Albumin/Globulin Ratio 1.5 % 06/17/18 07:34 Lipase 57 units/L (13-60) 06/17/18 07:34 Urine Color Yellow (Yellow) 06/17/18 10:00 Urine Turbidity Clear (Clear) 06/17/18 10:00 Urine pH 8.0 (5.0-7.0) H 06/17/18 10:00 Ur Specific [place] 1.034 (1.003-1.030) H 06/17/18 10:00 Urine Protein <15 mg/dl mg/dL (Negative) 06/17/18 10:00 Urine Glucose (UA) Neg mg/dL (Negative) 06/17/18 10:00 Urine Ketones Neg mg/dL (Negative) 06/17/18 10:00 Urine Blood Neg (Negative) 06/17/18 10:00 Urine Nitrite Neg (Negative) 06/17/18 10:00 Urine Bilirubin Neg (Negative) 06/17/18 10:00 Urine Urobilinogen < 2.0 mg/dL (<2.0) 06/17/18 10:00 Ur Leukocyte Esterase Neg (Negative) 06/17/18 10:00 Urine WBC (Auto) < 1.0 /HPF (0.0-6.0) 06/17/18 10:00 Urine RBC (Auto) < 1.0 /HPF (0.0-6.0) 06/17/18 10:00 Blood Type O POSITIVE 06/17/18 07:34 Antibody Screen Negative 06/17/18 07:34
[2018-06-20] MEDS: PROTONIX IV SCH (19:00)
[2018-06-20] MEDS: ROCEPHIN/NS 2 GM/100 ML 2 GM/100 ML BAG IV SCH (19:02)
[2018-06-20 19:40] LABS: Basophils % (Auto) 0.5 % (0.0-1.8); Eosinophils # (Auto) 0.2 K/mm3 (0.0-0.4); Eosinophils % (Auto) 1.9 % (0.0-4.3); Hematocrit 37.5 % (35.5-45.6); Lymphocytes # (Auto) 0.9 K/mm3 (1.2-5.4); Lymphocytes % (Auto) 10.7 % (13.4-35.0); Mean Corpuscular HGB Conc 35 % (32-34); Mean Corpuscular Volume 91 fl (84-94); Monocytes # (Auto) 0.9 K/mm3 (0.0-0.8); Monocytes % (Auto) 11.3 % (0.0-7.3); Platelet Count 447 K/mm3 (140-440); Red Blood Count 4.14 M/mm3 (3.65-5.03); Red Cell Distribution Width 13.9 % (13.2-15.2)
--- NOTE | 2018-06-20 20:28 | Gastroenterology Progress Note ---
Assessment and Plan GI: pt w/ uncomplicated diverticulitis - start po when ok with surgery - will need colonoscopy as outpt when d/c'ed - will sign off, call if needed Subjective Date of service: 06/20/18 Interval history: - reports pain improving Objective - Constitutional Vitals: Temp Pulse Resp BP Pulse Ox 98.8 F 77 20 145/96 96 06/20/18 16:31 06/20/18 16:31 06/20/18 16:31 06/20/18 16:31 06/20/18 16:31 General appearance: no acute distress - EENT Eyes: PERRL - Respiratory Respiratory: bilateral: CTA - Cardiovascular Rhythm: regular Heart Sounds: Present: S1 & S2 - Gastrointestinal General gastrointestinal: Present: deferred, soft, non-tender - Labs CBC & Chem 7: 06/20/18 18:58 06/19/18 05:13 Labs: Laboratory Results - last 24 hr 06/20/18 18:58 WBC 8.0 RBC 4.14 Hgb 13.0 Hct 37.5 MCV 91 MCH 31 MCHC 35 H RDW 13.9 Plt Count 447 H Lymph % (Auto) 10.7 L [place] % (Auto) 11.3 H Eos % (Auto) 1.9 Baso % (Auto) 0.5 Lymph # 0.9 L [place] # 0.9 H Eos # 0.2 Baso # 0.0 Seg Neutrophils % 75.6 H Seg Neutrophils # 6.1
[2018-06-21] MEDS ORDERED: ALUM-MAG HYDROX-SIMETH 200-200-20MG/5ML PO ONE ×2 (02:06→23:18)
[2018-06-21] MEDS: DILAUDID IV PRN ×6 (02:49→23:15)
[2018-06-21 05:24] LABS: Basophils # (Auto) 0.1 K/mm3 (0.0-0.1); Basophils % (Auto) 0.8 % (0.0-1.8); Eosinophils # (Auto) 0.2 K/mm3 (0.0-0.4); Eosinophils % (Auto) 2.4 % (0.0-4.3); Hematocrit 37.7 % (35.5-45.6); Hemoglobin 13.1 gm/dl (11.8-15.2); Lymphocytes % (Auto) 14.2 % (13.4-35.0); Mean Corpuscular HGB Conc 35 % (32-34); Mean Corpuscular Volume 90 fl (84-94); Monocytes # (Auto) 0.8 K/mm3 (0.0-0.8); Monocytes % (Auto) 12.5 % (0.0-7.3); Platelet Count 458 K/mm3 (140-440); Red Blood Count 4.19 M/mm3 (3.65-5.03); Red Cell Distribution Width 13.6 % (13.2-15.2)
[2018-06-21] MEDS: D5NS 1,000 ML IV SCH (05:51)
[2018-06-21 05:52] LABS: BUN/Creatinine Ratio 9; Blood Urea Nitrogen 7 mg/dL (9-20); Hemolysis Index 6
[2018-06-21] MEDS: HEPARIN SUB-Q SCH ×3 (05:53→22:16)
[2018-06-21] MEDS: FLAGYL 500 MG/100 ML 500 MG/100 ML BAG IV SCH ×3 (05:54→22:15)
[2018-06-21] MEDS: HABITROL TD SCH (10:23)
[2018-06-21] MEDS: VITAMIN B-1 PO SCH (10:23)
[2018-06-21] MEDS: PROTONIX IV SCH (10:24)
[2018-06-21] MEDS: ZOFRAN IV PRN ×3 (10:34→23:26)
--- NOTE | 2018-06-21 10:49 | Progress Note ---
Assessment and Plan Cultures: 06/17/2018 blood culture: No growth 06/17/2018 urine culture: No growth 06/18/2018 MRSA PCR: negative A/P: 48-year-old male with history of diverticulosis admitted with: 1) Sepsis Resolved, secondary to acute descending colon diverticulitis: CT without any evidence of perforation or abscess. Gen Surg following. On conservative management. 2) Significant tobacco abuse: Smoking cessation advised. 3) Alcohol abuse: Monitor for withdrawal. Recs: Continue IV ceftriaxone, D4 Continue Flagyl, D5 anticipate discharge on Po Augmentin 875 bid to complete total of 10 days ending 06-26-18 Dr. Jennings will be manager personnel selection this weekend, , please call for questions. [facility] M: [phone] O:[phone] Subjective Date of service: 06/21/18 Interval history: Patient seen and examined. Continued left flank pain tenderness with improvement today. No fevers. Objective - Exam Narrative Exam: Constitutional: Alert, cooperative. LUQ and left flank pain tenderness Head, Ears, Nose: Normocephalic, atraumatic. External ears, nose normal Eyes: Conjunctivae/corneas clear. No icterus. No ptosis. Neck: Supple, no meningeal signs Oral: dentition fair, multiple fillings, no thrush Cardiovascular: S1, S2 normal. Respiratory: Good air entry, clear to auscultation bilaterally GI: Soft, left side pain and tenderness; bowel sounds + Musculoskeletal: No pedal edema, no cyanosis. Skin: No rash or abscess Hem/Lymphatic: No palpable cervical or supraclavicular nodes. No lymphangitis Psych: Mood ok. Affect normal Neurological: Awake, alert, oriented. No gross abnormality - Constitutional Vitals: Vital Signs Temp Pulse Resp BP Pulse Ox 98.5 F 77 20 145/108 98 06/21/18 05:45 06/21/18 05:45 06/21/18 05:45 06/21/18 05:45 06/21/18 05:45 Temperature -Last 24 Hours Temperature 98.5 F Temperature 98.8 F Temperature 98.5 F - Labs CBC & Chem 7: 06/21/18 04:58 06/21/18 04:58 Labs: Abnormal lab results 06/20/18 06/21/18 06/21/18 Range/Units 18:58 04:58 04:58 MCHC 35 H 35 H (32-34) % Plt Count 447 H 458 H (140-440) K/mm3 Lymph % (Auto) 10.7 L (13.4-35.0) % [place] % (Auto) 11.3 H 12.5 H (0.0-7.3) % Lymph # 0.9 L 1.0 L (1.2-5.4) K/mm3 [place] # 0.9 H (0.0-0.8) K/mm3 Seg Neutrophils % 75.6 H 70.1 H (40.0-70.0) % Sodium 136 L (137-145) mmol/L BUN 7 L (9-20) mg/dL
--- NOTE | 2018-06-21 12:00 | Progress Note ---
Assessment and Plan Pt states "feeling better", "less pain" Afebrile Abd soft, improved LUQ and L flank tenderness although still present. wbc down to normal stable descending colon diverticulitis. slowly improving continue present care possible attempt at cl liq in am pending pain level f/u CT on Sunday Selected Entries 06/20/18 06/21/18 04:35 11:38 Temperature 99.1 F 98.2 F Pulse Rate 83 Respiratory 18 20 Rate Blood Pressure 162/111 155/103 Laboratory Tests 06/21/18 04:58 WBC 6.7 Objective Vital Signs - 12hr 06/21/18 06/21/18 05:45 11:38 Temperature 98.5 F 98.2 F Pulse Rate 77 67 Respiratory 20 20 Rate Blood Pressure 145/108 155/103 O2 Sat by Pulse 98 97 Oximetry - Labs 06/21/18 04:58 06/21/18 04:58 Diabetes panel 06/21/18 Range/Units 04:58 Sodium 136 L (137-145) mmol/L Potassium 4.0 (3.6-5.0) mmol/L Chloride 99.2 (98-107) mmol/L Carbon Dioxide 25 (22-30) mmol/L BUN 7 L (9-20) mg/dL Creatinine 0.8 (0.8-1.5) mg/dL Glucose 86 (75-100) mg/dL Calcium 9.0 (8.4-10.2) mg/dL Calcium panel 06/21/18 Range/Units 04:58 Calcium 9.0 (8.4-10.2) mg/dL Pituitary panel 06/21/18 Range/Units 04:58 Sodium 136 L (137-145) mmol/L Potassium 4.0 (3.6-5.0) mmol/L Chloride 99.2 (98-107) mmol/L Carbon Dioxide 25 (22-30) mmol/L BUN 7 L (9-20) mg/dL Creatinine 0.8 (0.8-1.5) mg/dL Glucose 86 (75-100) mg/dL Calcium 9.0 (8.4-10.2) mg/dL Adrenal panel 06/21/18 Range/Units 04:58 Sodium 136 L (137-145) mmol/L Potassium 4.0 (3.6-5.0) mmol/L Chloride 99.2 (98-107) mmol/L Carbon Dioxide 25 (22-30) mmol/L BUN 7 L (9-20) mg/dL Creatinine 0.8 (0.8-1.5) mg/dL Glucose 86 (75-100) mg/dL Calcium 9.0 (8.4-10.2) mg/dL
[2018-06-21] MEDS: ROCEPHIN/NS 2 GM/100 ML 2 GM/100 ML BAG IV SCH (18:28)
--- NOTE | 2018-06-21 18:34 | Progress Note ---
Assessment and Plan Assessment and plan: Acute diverticulitis Continue NPO as per Surgeon Navin Sepsis due to diverticulitis - NPO for now, cont abx, iv fluid -Surgeon recommended medical Management -Discussed with Dr. Ferro For repeat CT Abd on Sunday hypomagnesemia, Now resolved after replaced HTN, essential, hydralazine iv as needed Tobacco abuse, nicotine patch Alcohol abuse, thiamin iv, ativan as needed DVT prophylaxis. heparin subcut History Interval history: This is a 48 y/o AAM wth h/o diverticulosis presented with sudden onset of abdominal pain N/V/D. less abdominal pain heartburn Hospitalist Physical - Physical exam Narrative exam: GEN: Not in acute distress, lying in bed, obese HEENT: Normocephalic, atraumatic, Neck: supple, No JVD Lungs: Clear to auscultation bilat, no crackles, no wheeze Abd:soft, tender left lower abd, no rebound, non distended, normal bowel sounds Ext: No edema, no clubbing, no cyanosis Neuro:Awake,alert,oriented X 3, no focal signs Skin:No rash Psych: normal mood - Constitutional Vitals: Temp Pulse Resp BP Pulse Ox 98.2 F 67 20 155/103 97 06/21/18 11:38 06/21/18 11:38 06/21/18 11:38 06/21/18 11:38 06/21/18 11:38 Results - Labs CBC & Chem 7: 06/21/18 04:58 06/21/18 04:58 Labs: Laboratory Last Values WBC 6.7 K/mm3 (4.5-11.0) 06/21/18 04:58 RBC 4.19 M/mm3 (3.65-5.03) 06/21/18 04:58 Hgb 13.1 gm/dl (11.8-15.2) 06/21/18 04:58 Hct 37.7 % (35.5-45.6) 06/21/18 04:58 MCV 90 fl (84-94) 06/21/18 04:58 MCH 31 pg (28-32) 06/21/18 04:58 MCHC 35 % (32-34) H 06/21/18 04:58 RDW 13.6 % (13.2-15.2) 06/21/18 04:58 Plt Count 458 K/mm3 (140-440) H 06/21/18 04:58 Lymph % (Auto) 14.2 % (13.4-35.0) 06/21/18 04:58 [place] % (Auto) 12.5 % (0.0-7.3) H 06/21/18 04:58 Eos % (Auto) 2.4 % (0.0-4.3) 06/21/18 04:58 Baso % (Auto) 0.8 % (0.0-1.8) 06/21/18 04:58 Lymph # 1.0 K/mm3 (1.2-5.4) L 06/21/18 04:58 [place] # 0.8 K/mm3 (0.0-0.8) 06/21/18 04:58 Eos # 0.2 K/mm3 (0.0-0.4) 06/21/18 04:58 Baso # 0.1 K/mm3 (0.0-0.1) 06/21/18 04:58 Seg Neutrophils % 70.1 % (40.0-70.0) H 06/21/18 04:58 Seg Neutrophils # 4.7 K/mm3 (1.8-7.7) 06/21/18 04:58 Sodium 136 mmol/L (137-145) L 06/21/18 04:58 Potassium 4.0 mmol/L (3.6-5.0) 06/21/18 04:58 Chloride 99.2 mmol/L (98-107) 06/21/18 04:58 Carbon Dioxide 25 mmol/L (22-30) 06/21/18 04:58 Anion Gap 16 mmol/L 06/21/18 04:58 BUN 7 mg/dL (9-20) L 06/21/18 04:58 Creatinine 0.8 mg/dL (0.8-1.5) 06/21/18 04:58 Estimated GFR > 60 ml/min 06/21/18 04:58 BUN/Creatinine Ratio 9 % 06/21/18 04:58 Glucose 86 mg/dL (75-100) 06/21/18 04:58 Lactic Acid 1.60 mmol/L (0.7-2.0) 06/17/18 10:18 Calcium 9.0 mg/dL (8.4-10.2) 06/21/18 04:58 Magnesium 1.90 mg/dL (1.7-2.3) 06/18/18 04:41 Total Bilirubin 0.50 mg/dL (0.1-1.2) 06/17/18 07:34 Direct Bilirubin < 0.2 mg/dL (0-0.2) 06/17/18 07:34 Indirect Bilirubin 0.3 mg/dL 06/17/18 07:34 AST 29 units/L (5-40) 06/17/18 07:34 ALT 35 units/L (7-56) 06/17/18 07:34 Alkaline Phosphatase 66 units/L (35-129) 06/17/18 07:34 Total Creatine Kinase 356 units/L (55-170) H 06/17/18 07:34 CK-MB (CK-2) 2.3 ng/mL (0.0-4.0) 06/17/18 07:34 CK-MB (CK-2) Rel Index 0.6 (0-4) 06/17/18 07:34 Troponin T < 0.010 ng/mL (0.00-0.029) 06/17/18 07:34 NT-Pro-B Natriuret Pep 9.44 pg/mL (0-450) 06/17/18 07:34 Total Protein 7.4 g/dL (6.3-8.2) 06/17/18 07:34 Albumin 4.4 g/dL (3.9-5) 06/17/18 07:34 Albumin/Globulin Ratio 1.5 % 06/17/18 07:34 Lipase 57 units/L (13-60) 06/17/18 07:34 Urine Color Yellow (Yellow) 06/17/18 10:00 Urine Turbidity Clear (Clear) 06/17/18 10:00 Urine pH 8.0 (5.0-7.0) H 06/17/18 10:00 Ur Specific [place] 1.034 (1.003-1.030) H 06/17/18 10:00 Urine Protein <15 mg/dl mg/dL (Negative) 06/17/18 10:00 Urine Glucose (UA) Neg mg/dL (Negative) 06/17/18 10:00 Urine Ketones Neg mg/dL (Negative) 06/17/18 10:00 Urine Blood Neg (Negative) 06/17/18 10:00 Urine Nitrite Neg (Negative) 06/17/18 10:00 Urine Bilirubin Neg (Negative) 06/17/18 10:00 Urine Urobilinogen < 2.0 mg/dL (<2.0) 06/17/18 10:00 Ur Leukocyte Esterase Neg (Negative) 06/17/18 10:00 Urine WBC (Auto) < 1.0 /HPF (0.0-6.0) 06/17/18 10:00 Urine RBC (Auto) < 1.0 /HPF (0.0-6.0) 06/17/18 10:00 Blood Type O POSITIVE 06/17/18 07:34 Antibody Screen Negative 06/17/18 07:34
[2018-06-22] MEDS: D5NS 1,000 ML IV SCH (00:15)
[2018-06-22] MEDS: DILAUDID IV PRN ×2 (03:44→08:22)
[2018-06-22] MEDS: FLAGYL 500 MG/100 ML 500 MG/100 ML BAG IV SCH ×3 (05:19→21:45)
[2018-06-22] MEDS: HEPARIN SUB-Q SCH ×3 (05:20→21:45)
[2018-06-22] MEDS: MORPHINE IV PRN ×4 (05:36→22:17)
[2018-06-22] MEDS: ZOFRAN IV PRN (08:26)
[2018-06-22] MEDS: PROTONIX IV SCH (09:16)
[2018-06-22] MEDS: VITAMIN B-1 PO SCH (09:16)
[2018-06-22] MEDS: HABITROL TD SCH (10:22)
--- NOTE | 2018-06-22 12:37 | Progress Note ---
Assessment and Plan Pt continues to feel better. less pain Abd soft, decreased tenderness attempt cl liq diet f/u CT Mon Selected Entries 06/22/18 05:58 Temperature 99.2 F Pulse Rate 70 Respiratory 20 Rate Blood Pressure 160/102 Objective Vital Signs - 12hr 06/22/18 06/22/18 06/22/18 03:44 05:36 05:58 Temperature 99.2 F Pulse Rate 70 Respiratory 20 20 20 Rate Blood Pressure 160/102 O2 Sat by Pulse 96 Oximetry - Labs 06/21/18 04:58 06/21/18 04:58
--- NOTE | 2018-06-22 15:51 | Progress Note ---
Assessment and Plan Assessment and plan: Acute diverticulitis Start clear liquid as per surgeon Navin CHAVEZ following Sepsis due to diverticulitis -Surgeon recommended medical Management -Discussed with Dr. Ferro For repeat CT Abd on Sunday hypomagnesemia, Now resolved after replaced HTN, essential, hydralazine iv as needed Tobacco abuse, nicotine patch Alcohol abuse, thiamin iv, ativan as needed DVT prophylaxis. heparin subcut History Interval history: This is a 48 y/o AAM wth h/o diverticulosis presented with sudden onset of abdominal pain N/V/D. less abdominal pain Hospitalist Physical - Physical exam Narrative exam: GEN: Not in acute distress, lying in bed, obese HEENT: Normocephalic, atraumatic, Neck: supple, No JVD Lungs: Clear to auscultation bilat, no crackles, no wheeze Abd:soft, tender left lower abd, no rebound, non distended, normal bowel sounds Ext: No edema, no clubbing, no cyanosis Neuro:Awake,alert,oriented X 3, no focal signs Skin:No rash Psych: normal mood - Constitutional Vitals: Temp Pulse Resp BP Pulse Ox 98.4 F 74 20 132/79 96 06/22/18 12:08 06/22/18 12:08 06/22/18 12:08 06/22/18 12:08 06/22/18 12:08 Results - Labs CBC & Chem 7: 06/21/18 04:58 06/21/18 04:58 Labs: Laboratory Last Values WBC 6.7 K/mm3 (4.5-11.0) 06/21/18 04:58 RBC 4.19 M/mm3 (3.65-5.03) 06/21/18 04:58 Hgb 13.1 gm/dl (11.8-15.2) 06/21/18 04:58 Hct 37.7 % (35.5-45.6) 06/21/18 04:58 MCV 90 fl (84-94) 06/21/18 04:58 MCH 31 pg (28-32) 06/21/18 04:58 MCHC 35 % (32-34) H 06/21/18 04:58 RDW 13.6 % (13.2-15.2) 06/21/18 04:58 Plt Count 458 K/mm3 (140-440) H 06/21/18 04:58 Lymph % (Auto) 14.2 % (13.4-35.0) 06/21/18 04:58 [place] % (Auto) 12.5 % (0.0-7.3) H 06/21/18 04:58 Eos % (Auto) 2.4 % (0.0-4.3) 06/21/18 04:58 Baso % (Auto) 0.8 % (0.0-1.8) 06/21/18 04:58 Lymph # 1.0 K/mm3 (1.2-5.4) L 06/21/18 04:58 [place] # 0.8 K/mm3 (0.0-0.8) 06/21/18 04:58 Eos # 0.2 K/mm3 (0.0-0.4) 06/21/18 04:58 Baso # 0.1 K/mm3 (0.0-0.1) 06/21/18 04:58 Seg Neutrophils % 70.1 % (40.0-70.0) H 06/21/18 04:58 Seg Neutrophils # 4.7 K/mm3 (1.8-7.7) 06/21/18 04:58 Sodium 136 mmol/L (137-145) L 06/21/18 04:58 Potassium 4.0 mmol/L (3.6-5.0) 06/21/18 04:58 Chloride 99.2 mmol/L (98-107) 06/21/18 04:58 Carbon Dioxide 25 mmol/L (22-30) 06/21/18 04:58 Anion Gap 16 mmol/L 06/21/18 04:58 BUN 7 mg/dL (9-20) L 06/21/18 04:58 Creatinine 0.8 mg/dL (0.8-1.5) 06/21/18 04:58 Estimated GFR > 60 ml/min 06/21/18 04:58 BUN/Creatinine Ratio 9 % 06/21/18 04:58 Glucose 86 mg/dL (75-100) 06/21/18 04:58 Lactic Acid 1.60 mmol/L (0.7-2.0) 06/17/18 10:18 Calcium 9.0 mg/dL (8.4-10.2) 06/21/18 04:58 Magnesium 1.90 mg/dL (1.7-2.3) 06/18/18 04:41 Total Bilirubin 0.50 mg/dL (0.1-1.2) 06/17/18 07:34 Direct Bilirubin < 0.2 mg/dL (0-0.2) 06/17/18 07:34 Indirect Bilirubin 0.3 mg/dL 06/17/18 07:34 AST 29 units/L (5-40) 06/17/18 07:34 ALT 35 units/L (7-56) 06/17/18 07:34 Alkaline Phosphatase 66 units/L (35-129) 06/17/18 07:34 Total Creatine Kinase 356 units/L (55-170) H 06/17/18 07:34 CK-MB (CK-2) 2.3 ng/mL (0.0-4.0) 06/17/18 07:34 CK-MB (CK-2) Rel Index 0.6 (0-4) 06/17/18 07:34 Troponin T < 0.010 ng/mL (0.00-0.029) 06/17/18 07:34 NT-Pro-B Natriuret Pep 9.44 pg/mL (0-450) 06/17/18 07:34 Total Protein 7.4 g/dL (6.3-8.2) 06/17/18 07:34 Albumin 4.4 g/dL (3.9-5) 06/17/18 07:34 Albumin/Globulin Ratio 1.5 % 06/17/18 07:34 Lipase 57 units/L (13-60) 06/17/18 07:34 Urine Color Yellow (Yellow) 06/17/18 10:00 Urine Turbidity Clear (Clear) 06/17/18 10:00 Urine pH 8.0 (5.0-7.0) H 06/17/18 10:00 Ur Specific [place] 1.034 (1.003-1.030) H 06/17/18 10:00 Urine Protein <15 mg/dl mg/dL (Negative) 06/17/18 10:00 Urine Glucose (UA) Neg mg/dL (Negative) 06/17/18 10:00 Urine Ketones Neg mg/dL (Negative) 06/17/18 10:00 Urine Blood Neg (Negative) 06/17/18 10:00 Urine Nitrite Neg (Negative) 06/17/18 10:00 Urine Bilirubin Neg (Negative) 06/17/18 10:00 Urine Urobilinogen < 2.0 mg/dL (<2.0) 06/17/18 10:00 Ur Leukocyte Esterase Neg (Negative) 06/17/18 10:00 Urine WBC (Auto) < 1.0 /HPF (0.0-6.0) 06/17/18 10:00 Urine RBC (Auto) < 1.0 /HPF (0.0-6.0) 06/17/18 10:00 Blood Type O POSITIVE 06/17/18 07:34 Antibody Screen Negative 06/17/18 07:34
[2018-06-22] MEDS: ROCEPHIN/NS 2 GM/100 ML 2 GM/100 ML BAG IV SCH (17:46)
[2018-06-23] MEDS: MORPHINE IV PRN ×5 (04:15→22:55)
[2018-06-23] MEDS: HEPARIN SUB-Q SCH ×3 (06:05→21:45)
[2018-06-23] MEDS: FLAGYL 500 MG/100 ML 500 MG/100 ML BAG IV SCH ×3 (06:05→21:45)
[2018-06-23] MEDS: ZOFRAN IV PRN (09:36)
[2018-06-23] MEDS: VITAMIN B-1 PO SCH (09:36)
[2018-06-23] MEDS: HABITROL TD SCH (09:37)
[2018-06-23] MEDS: PROTONIX IV SCH (09:37)
--- NOTE | 2018-06-23 13:04 | Progress Note ---
Assessment and Plan Pt states he has some nausea and cramping with cl liq Abd exam - status quo stable limit to cl liq and po meds for f/u CT in am f/u labs in am Selected Entries 06/23/18 05:57 Temperature 98.6 F Pulse Rate 67 Respiratory 20 Rate Blood Pressure 164/102 Objective Vital Signs - 12hr 06/23/18 05:57 Temperature 98.6 F Pulse Rate 67 Respiratory 20 Rate Blood Pressure 164/102 O2 Sat by Pulse 97 Oximetry - Labs 06/21/18 04:58 06/21/18 04:58
--- NOTE | 2018-06-23 15:33 | Progress Note ---
Assessment and Plan Assessment and plan: Acute diverticulitis Start clear liquid as per surgeon Katherine and Yarelis CHAVEZ following Sepsis due to diverticulitis -Surgeon recommended medical Management -Discussed with Dr. Ferro For repeat CT Abd on Sunday hypomagnesemia, Now resolved after replaced HTN, essential, hydralazine iv as needed Tobacco abuse, nicotine patch Alcohol abuse, thiamin iv, ativan as needed DVT prophylaxis. heparin subcut For repeat CT Abd tomorrow. History Interval history: This is a 48 y/o AAM wth h/o diverticulosis presented with sudden onset of abdominal pain N/V/D. Feels better less abdominal pain Hospitalist Physical - Physical exam Narrative exam: GEN: Not in acute distress, lying in bed, obese HEENT: Normocephalic, atraumatic, Neck: supple, No JVD Lungs: Clear to auscultation bilat, no crackles, no wheeze Abd:soft, tender left lower abd, no rebound, non distended, normal bowel sounds Ext: No edema, no clubbing, no cyanosis Neuro:Awake,alert,oriented X 3, no focal signs Skin:No rash Psych: normal mood - Constitutional Vitals: Temp Pulse Resp BP Pulse Ox 98.6 F 67 20 164/102 97 06/23/18 05:57 06/23/18 05:57 06/23/18 05:57 06/23/18 05:57 06/23/18 05:57 Results - Labs CBC & Chem 7: 06/21/18 04:58 06/21/18 04:58 Labs: Laboratory Last Values WBC 6.7 K/mm3 (4.5-11.0) 06/21/18 04:58 RBC 4.19 M/mm3 (3.65-5.03) 06/21/18 04:58 Hgb 13.1 gm/dl (11.8-15.2) 06/21/18 04:58 Hct 37.7 % (35.5-45.6) 06/21/18 04:58 MCV 90 fl (84-94) 06/21/18 04:58 MCH 31 pg (28-32) 06/21/18 04:58 MCHC 35 % (32-34) H 06/21/18 04:58 RDW 13.6 % (13.2-15.2) 06/21/18 04:58 Plt Count 458 K/mm3 (140-440) H 06/21/18 04:58 Lymph % (Auto) 14.2 % (13.4-35.0) 06/21/18 04:58 [place] % (Auto) 12.5 % (0.0-7.3) H 06/21/18 04:58 Eos % (Auto) 2.4 % (0.0-4.3) 06/21/18 04:58 Baso % (Auto) 0.8 % (0.0-1.8) 06/21/18 04:58 Lymph # 1.0 K/mm3 (1.2-5.4) L 06/21/18 04:58 [place] # 0.8 K/mm3 (0.0-0.8) 06/21/18 04:58 Eos # 0.2 K/mm3 (0.0-0.4) 06/21/18 04:58 Baso # 0.1 K/mm3 (0.0-0.1) 06/21/18 04:58 Seg Neutrophils % 70.1 % (40.0-70.0) H 06/21/18 04:58 Seg Neutrophils # 4.7 K/mm3 (1.8-7.7) 06/21/18 04:58 Sodium 136 mmol/L (137-145) L 06/21/18 04:58 Potassium 4.0 mmol/L (3.6-5.0) 06/21/18 04:58 Chloride 99.2 mmol/L (98-107) 06/21/18 04:58 Carbon Dioxide 25 mmol/L (22-30) 06/21/18 04:58 Anion Gap 16 mmol/L 06/21/18 04:58 BUN 7 mg/dL (9-20) L 06/21/18 04:58 Creatinine 0.8 mg/dL (0.8-1.5) 06/21/18 04:58 Estimated GFR > 60 ml/min 06/21/18 04:58 BUN/Creatinine Ratio 9 % 06/21/18 04:58 Glucose 86 mg/dL (75-100) 06/21/18 04:58 Lactic Acid 1.60 mmol/L (0.7-2.0) 06/17/18 10:18 Calcium 9.0 mg/dL (8.4-10.2) 06/21/18 04:58 Magnesium 1.90 mg/dL (1.7-2.3) 06/18/18 04:41 Total Bilirubin 0.50 mg/dL (0.1-1.2) 06/17/18 07:34 Direct Bilirubin < 0.2 mg/dL (0-0.2) 06/17/18 07:34 Indirect Bilirubin 0.3 mg/dL 06/17/18 07:34 AST 29 units/L (5-40) 06/17/18 07:34 ALT 35 units/L (7-56) 06/17/18 07:34 Alkaline Phosphatase 66 units/L (35-129) 06/17/18 07:34 Total Creatine Kinase 356 units/L (55-170) H 06/17/18 07:34 CK-MB (CK-2) 2.3 ng/mL (0.0-4.0) 06/17/18 07:34 CK-MB (CK-2) Rel Index 0.6 (0-4) 06/17/18 07:34 Troponin T < 0.010 ng/mL (0.00-0.029) 06/17/18 07:34 NT-Pro-B Natriuret Pep 9.44 pg/mL (0-450) 06/17/18 07:34 Total Protein 7.4 g/dL (6.3-8.2) 06/17/18 07:34 Albumin 4.4 g/dL (3.9-5) 06/17/18 07:34 Albumin/Globulin Ratio 1.5 % 06/17/18 07:34 Lipase 57 units/L (13-60) 06/17/18 07:34 Urine Color Yellow (Yellow) 06/17/18 10:00 Urine Turbidity Clear (Clear) 06/17/18 10:00 Urine pH 8.0 (5.0-7.0) H 06/17/18 10:00 Ur Specific [place] 1.034 (1.003-1.030) H 06/17/18 10:00 Urine Protein <15 mg/dl mg/dL (Negative) 06/17/18 10:00 Urine Glucose (UA) Neg mg/dL (Negative) 06/17/18 10:00 Urine Ketones Neg mg/dL (Negative) 06/17/18 10:00 Urine Blood Neg (Negative) 06/17/18 10:00 Urine Nitrite Neg (Negative) 06/17/18 10:00 Urine Bilirubin Neg (Negative) 06/17/18 10:00 Urine Urobilinogen < 2.0 mg/dL (<2.0) 06/17/18 10:00 Ur Leukocyte Esterase Neg (Negative) 06/17/18 10:00 Urine WBC (Auto) < 1.0 /HPF (0.0-6.0) 06/17/18 10:00 Urine RBC (Auto) < 1.0 /HPF (0.0-6.0) 06/17/18 10:00 Blood Type O POSITIVE 06/17/18 07:34 Antibody Screen Negative 06/17/18 07:34
[2018-06-23] MEDS: NORVASC PO SCH (17:00)
[2018-06-23] MEDS: ROCEPHIN/NS 2 GM/100 ML 2 GM/100 ML BAG IV SCH (17:00)
[2018-06-24] MEDS: MORPHINE IV PRN ×4 (04:46→23:11)
[2018-06-24] MEDS: FLAGYL 500 MG/100 ML 500 MG/100 ML BAG IV SCH ×3 (06:19→23:04)
[2018-06-24] MEDS: HEPARIN SUB-Q SCH ×3 (06:19→23:05)
[2018-06-24] MEDS: D5NS 1,000 ML IV SCH (06:22)
[2018-06-24 07:30] LABS: Basophils # (Auto) 0.1 K/mm3 (0.0-0.1); Basophils % (Auto) 0.9 % (0.0-1.8); Eosinophils # (Auto) 0.3 K/mm3 (0.0-0.4); Hematocrit 38.5 % (35.5-45.6); Hemoglobin 13.3 gm/dl (11.8-15.2); Lymphocytes # (Auto) 1.4 K/mm3 (1.2-5.4); Mean Corpuscular HGB Conc 34 % (32-34); Mean Corpuscular Volume 90 fl (84-94); Monocytes # (Auto) 0.7 K/mm3 (0.0-0.8); Monocytes % (Auto) 8.7 % (0.0-7.3); Platelet Count 655 K/mm3 (140-440); Red Blood Count 4.27 M/mm3 (3.65-5.03); Red Cell Distribution Width 13.7 % (13.2-15.2)
[2018-06-24 07:53] LABS: Alanine Aminotransferase 16 units/L (7-56); Albumin 3.8 g/dL (3.9-5); BUN/Creatinine Ratio 5; Blood Urea Nitrogen 4 mg/dL (9-20); Calcium 8.6 mg/dL (8.4-10.2); Hemolysis Index 3
--- NOTE | 2018-06-24 09:28 | Progress Note ---
Assessment and Plan Cultures: 06/17/2018 blood culture: No growth 06/17/2018 urine culture: No growth 06/18/2018 MRSA PCR: negative A/P: 48-year-old male with history of diverticulosis admitted with: 1) Sepsis Resolved, secondary to acute descending colon diverticulitis: CT without any evidence of perforation or abscess. Gen Surg following. On conservative management. nausea and cramping with clear liquid. Repeat CT Abdomen today. 2) Significant tobacco abuse: Smoking cessation advised. 3) Alcohol abuse: Monitor for withdrawal. Recs: Continue IV ceftriaxone, D7 Continue Flagyl, D8 anticipate discharge on Po Augmentin 875 bid to complete total of 10 days ending 06-26-18 f/u CT Abdomen/Pelvis [facility] M: [phone] O:[phone] Subjective Date of service: 06/24/18 Interval history: Patient seen and examined. Continued left flank pain and tenderness. No fevers. Objective - Exam Narrative Exam: Constitutional: Alert, cooperative. LUQ and left flank pain tenderness Head, Ears, Nose: Normocephalic, atraumatic. External ears, nose normal Eyes: Conjunctivae/corneas clear. No icterus. No ptosis. Neck: Supple, no meningeal signs Oral: dentition fair, multiple fillings, no thrush Cardiovascular: S1, S2 normal. Respiratory: Good air entry, clear to auscultation bilaterally GI: Soft, left side pain and tenderness; bowel sounds + Musculoskeletal: No pedal edema, no cyanosis. Skin: No rash or abscess Hem/Lymphatic: No palpable cervical or supraclavicular nodes. No lymphangitis Psych: Mood ok. Affect normal Neurological: Awake, alert, oriented. No gross abnormality - Constitutional Vitals: Vital Signs Temp Pulse Resp BP Pulse Ox 98.5 F 73 16 158/100 96 06/24/18 05:18 06/24/18 05:18 06/24/18 05:18 06/24/18 05:18 06/24/18 05:18 Temperature -Last 24 Hours Temperature 98.5 F Temperature 98.0 F Temperature 98.4 F Temperature 98.4 F - Labs CBC & Chem 7: 06/24/18 06:42 06/24/18 06:42 Labs: Abnormal lab results 06/24/18 06/24/18 Range/Units 06:42 06:42 Plt Count 655 H (140-440) K/mm3 [place] % (Auto) 8.7 H (0.0-7.3) % BUN 4 L (9-20) mg/dL Albumin 3.8 L (3.9-5) g/dL
[2018-06-24] MEDS: NORVASC PO SCH ×2 (10:48→11:41)
[2018-06-24] MEDS: VITAMIN B-1 PO SCH ×2 (10:49→11:41)
[2018-06-24] MEDS: PROTONIX IV SCH (11:31)
[2018-06-24] MEDS: HABITROL TD SCH (11:31)
--- NOTE | 2018-06-24 14:27 | Progress Note ---
Assessment and Plan Pt status quo but vomited after po contrast. Abd exam - status quo CT - minimal improvement stable - slowly resolving diverticulitis? explained to pt that indications for surgical intervention have now been met but that we would most likely have to create a temporary colostomy if we surgically intervene. Pt wishes to hold off on surg at this time and continue with antibiotic Rx. Thus continue agressive antibiotic Rx as per ID will continue to closely monitor. As long as pt doesn't worsen, we can continue with another week of antibiotic Rx. Keep NPO begin PPN or TPN Objective Vital Signs - 12hr 06/24/18 06/24/18 06/24/18 05:18 11:40 11:41 Temperature 98.5 F 98.7 F Pulse Rate 73 70 Respiratory 16 18 Rate Blood Pressure 158/100 159/111 159/111 O2 Sat by Pulse 96 Oximetry - Labs 06/24/18 06:42 06/24/18 06:42 Diabetes panel 06/24/18 Range/Units 06:42 Sodium 139 (137-145) mmol/L Potassium 4.2 (3.6-5.0) mmol/L Chloride 103.1 (98-107) mmol/L Carbon Dioxide 27 (22-30) mmol/L BUN 4 L (9-20) mg/dL Creatinine 0.8 (0.8-1.5) mg/dL Glucose 94 (75-100) mg/dL Calcium 8.6 (8.4-10.2) mg/dL AST 18 (5-40) units/L ALT 16 (7-56) units/L Alkaline Phosphatase 58 (35-129) units/L Total Protein 7.0 (6.3-8.2) g/dL Albumin 3.8 L (3.9-5) g/dL Calcium panel 06/24/18 Range/Units 06:42 Calcium 8.6 (8.4-10.2) mg/dL Albumin 3.8 L (3.9-5) g/dL Pituitary panel 06/24/18 Range/Units 06:42 Sodium 139 (137-145) mmol/L Potassium 4.2 (3.6-5.0) mmol/L Chloride 103.1 (98-107) mmol/L Carbon Dioxide 27 (22-30) mmol/L BUN 4 L (9-20) mg/dL Creatinine 0.8 (0.8-1.5) mg/dL Glucose 94 (75-100) mg/dL Calcium 8.6 (8.4-10.2) mg/dL Adrenal panel 06/24/18 Range/Units 06:42 Sodium 139 (137-145) mmol/L Potassium 4.2 (3.6-5.0) mmol/L Chloride 103.1 (98-107) mmol/L Carbon Dioxide 27 (22-30) mmol/L BUN 4 L (9-20) mg/dL Creatinine 0.8 (0.8-1.5) mg/dL Glucose 94 (75-100) mg/dL Calcium 8.6 (8.4-10.2) mg/dL Total Bilirubin 0.20 (0.1-1.2) mg/dL AST 18 (5-40) units/L ALT 16 (7-56) units/L Alkaline Phosphatase 58 (35-129) units/L Total Protein 7.0 (6.3-8.2) g/dL Albumin 3.8 L (3.9-5) g/dL
--- NOTE | 2018-06-24 14:52 | Cat Scan Report ---
PROCEDURE: CT ABDOMEN PELVIS W CON TECHNIQUE: Computerized axial tomography of the abdomen and pelvis was performed after the IV inject ion of iodinated nonionic contrast. HISTORY: f/u descing colon diverticulitis COMPARISONS: 06/17/2018 . FINDINGS: Lower Lung melgar: Minimal dependent atelectasis. Upper Abdomen: The liver, the gallbladder are unremarkable. The adrenal glands and the pancreas show no focal abnormalities. Small splenule visualized left upper quadrant unchanged from the prior study . Kidneys, Ureters and Urinary bladder: There are multiple low-density nodules within and projecting f rom the renal cortex of both kidneys which appear to represent renal cortical cysts. No solid masses hydronephrosis or calculi are visualized. Ureters are not distended. Urinary bladder is unremarkable. Calcifications are seen in the lower pelvis which appear to represent phleboliths. Retroperitoneum: Atherosclerotic changes are seen in the abdominal aorta. No aneurysm is visualized. Nonspecific subcentimeter lymph nodes are seen in the retroperitoneum. No pathologically enlarged ly mph nodes are identified. Bowel: Diverticulosis is visualized in the descending colon and sigmoid colon. This is greatest in t he sigmoid colon. The distal descending colon there is however wall thickening visualized in inflamma tory change in the adjacent mesentery. Acute diverticulitis is suspected. This has worsened since the prior study. There is a small oval fluid collection with air-fluid level in the left side of the abd omen laterally anteriorly image 93 series 2 measuring 2.1 x 1.2 cm. This could represent a distended diverticulum with a fluid level. This could also represent a small abscess adjacent to the colon. There is mild wall thickening seen in the cecum and ascending colon as well as a few diverticuli. I c annot exclude mild diverticulitis or other nonspecific colitis on the right. This appears new compare d to the prior exam. No evidence of bowel obstruction. Normal-appearing appendix seen right lower pelvis. Reproductive organs: There is nonspecific diffuse prostate enlargement. Other: No acute bone abnormalities are seen. There is a metallic pellet in the subcutaneous adipose t issue right lower flank. This was present on the prior study. IMPRESSION: Diverticulosis left-sided colon as described. Worsening diverticulitis seen distal descending colon. Small abscess suspected adjacent to the distal sigmoid colon versus a fluid-filled diverticulum. No f ree air or bowel obstruction is visualized. Abnormal thickening right side of the colon as described. There is mild diverticulosis. I cannot excl ude mild diverticulitis or other nonspecific colitis. Multiple renal cortical cysts. BE present. Splenule visualized left upper quadrant. Nonspecific diffuse prostate enlargement. This document is electronically signed by Nahid Choudhury MD., June 24 2018 02:50:05 PM ET
--- NOTE | 2018-06-24 14:54 | Progress Note ---
Assessment and Plan Assessment and plan: patient is 48-year-old with hypertension, presented with abdominal pain, nausea, vomiting. He was evaluated emergency department and CT abdomen and pelvis showed acute diverticulitis. Was diagnosed with sepsis due to diverticulitis, started on IV antibiotics and admitted. Patient evaluated by surgeon and ID physician. He is on Rocephin and Flagyl. Was initially nothing by mouth but after several days started on clear liquid diet. Repeat CT abdomen today showed worsening diverticulitis. Discussed Dr. Ferro, surgeon. He recommends NPO, start PPN. He says will observe for several days and if no improvement may need surgery. Acute diverticulitis, worsening as per CT Abd today Was on clear liquid diet but now NPO after CT abdomen today shows worsening diverticulitis Discussed with Dr. Ferro, surgeon and he recommends Nothing by mouth, and to start PPN . Cont Rocephin and Flagyl ID following Sepsis due to diverticulitis Surgeon recommended medical Management Discussed with Dr. Ferro Hypomagnesemia, Now resolved after replaced HTN urgency Start Clonidine patch since patient is not nothing by mouth Hydralazine IV when necessary for elevated blood pressure Tobacco abuse, nicotine patch Alcohol abuse: thiamin iv, ativan as needed DVT prophylaxis.; heparin subcut History Interval history: This is a 48 y/o with h/o diverticulosis presented with abdominal pain N/V/D, diagnosed with diverticulitis Less abdominal pain Hospitalist Physical - Physical exam Narrative exam: GEN: Not in acute distress, lying in bed, HEENT: Normocephalic, atraumatic, Neck: supple, No JVD Lungs: Clear to auscultation bilat, no crackles, no wheeze Abd:soft, tender left lower abd, no rebound, non distended, normal bowel sounds Ext: No edema, no clubbing, no cyanosis Neuro:Awake,alert,oriented X 3, no focal signs Skin:No rash Psych: normal mood - Constitutional Vitals: Temp Pulse Resp BP Pulse Ox 98.7 F 70 18 159/111 96 06/24/18 11:40 06/24/18 11:41 06/24/18 11:40 06/24/18 11:41 06/24/18 05:18 Results - Labs CBC & Chem 7: 06/24/18 06:42 06/24/18 06:42 Labs: Laboratory Last Values WBC 8.0 K/mm3 (4.5-11.0) 06/24/18 06:42 RBC 4.27 M/mm3 (3.65-5.03) 06/24/18 06:42 Hgb 13.3 gm/dl (11.8-15.2) 06/24/18 06:42 Hct 38.5 % (35.5-45.6) 06/24/18 06:42 MCV 90 fl (84-94) 06/24/18 06:42 MCH 31 pg (28-32) 06/24/18 06:42 MCHC 34 % (32-34) 06/24/18 06:42 RDW 13.7 % (13.2-15.2) 06/24/18 06:42 Plt Count 655 K/mm3 (140-440) H 06/24/18 06:42 Lymph % (Auto) 17.0 % (13.4-35.0) 06/24/18 06:42 [place] % (Auto) 8.7 % (0.0-7.3) H 06/24/18 06:42 Eos % (Auto) 4.0 % (0.0-4.3) 06/24/18 06:42 Baso % (Auto) 0.9 % (0.0-1.8) 06/24/18 06:42 Lymph # 1.4 K/mm3 (1.2-5.4) 06/24/18 06:42 [place] # 0.7 K/mm3 (0.0-0.8) 06/24/18 06:42 Eos # 0.3 K/mm3 (0.0-0.4) 06/24/18 06:42 Baso # 0.1 K/mm3 (0.0-0.1) 06/24/18 06:42 Seg Neutrophils % 69.4 % (40.0-70.0) 06/24/18 06:42 Seg Neutrophils # 5.6 K/mm3 (1.8-7.7) 06/24/18 06:42 Sodium 139 mmol/L (137-145) 06/24/18 06:42 Potassium 4.2 mmol/L (3.6-5.0) 06/24/18 06:42 Chloride 103.1 mmol/L (98-107) 06/24/18 06:42 Carbon Dioxide 27 mmol/L (22-30) 06/24/18 06:42 Anion Gap 13 mmol/L 06/24/18 06:42 BUN 4 mg/dL (9-20) L 06/24/18 06:42 Creatinine 0.8 mg/dL (0.8-1.5) 06/24/18 06:42 Estimated GFR > 60 ml/min 06/24/18 06:42 BUN/Creatinine Ratio 5 % 06/24/18 06:42 Glucose 94 mg/dL (75-100) 06/24/18 06:42 Lactic Acid 1.60 mmol/L (0.7-2.0) 06/17/18 10:18 Calcium 8.6 mg/dL (8.4-10.2) 06/24/18 06:42 Magnesium 1.90 mg/dL (1.7-2.3) 06/18/18 04:41 Total Bilirubin 0.20 mg/dL (0.1-1.2) 06/24/18 06:42 Direct Bilirubin < 0.2 mg/dL (0-0.2) 06/17/18 07:34 Indirect Bilirubin 0.3 mg/dL 06/17/18 07:34 AST 18 units/L (5-40) 06/24/18 06:42 ALT 16 units/L (7-56) 06/24/18 06:42 Alkaline Phosphatase 58 units/L (35-129) 06/24/18 06:42 Total Creatine Kinase 356 units/L (55-170) H 06/17/18 07:34 CK-MB (CK-2) 2.3 ng/mL (0.0-4.0) 06/17/18 07:34 CK-MB (CK-2) Rel Index 0.6 (0-4) 06/17/18 07:34 Troponin T < 0.010 ng/mL (0.00-0.029) 06/17/18 07:34 NT-Pro-B Natriuret Pep 9.44 pg/mL (0-450) 06/17/18 07:34 Total Protein 7.0 g/dL (6.3-8.2) 06/24/18 06:42 Albumin 3.8 g/dL (3.9-5) L 06/24/18 06:42 Albumin/Globulin Ratio 1.2 % 06/24/18 06:42 Lipase 57 units/L (13-60) 06/17/18 07:34 Urine Color Yellow (Yellow) 06/17/18 10:00 Urine Turbidity Clear (Clear) 06/17/18 10:00 Urine pH 8.0 (5.0-7.0) H 06/17/18 10:00 Ur Specific [place] 1.034 (1.003-1.030) H 06/17/18 10:00 Urine Protein <15 mg/dl mg/dL (Negative) 06/17/18 10:00 Urine Glucose (UA) Neg mg/dL (Negative) 06/17/18 10:00 Urine Ketones Neg mg/dL (Negative) 06/17/18 10:00 Urine Blood Neg (Negative) 06/17/18 10:00 Urine Nitrite Neg (Negative) 06/17/18 10:00 Urine Bilirubin Neg (Negative) 06/17/18 10:00 Urine Urobilinogen < 2.0 mg/dL (<2.0) 06/17/18 10:00 Ur Leukocyte Esterase Neg (Negative) 06/17/18 10:00 Urine WBC (Auto) < 1.0 /HPF (0.0-6.0) 06/17/18 10:00 Urine RBC (Auto) < 1.0 /HPF (0.0-6.0) 06/17/18 10:00 Blood Type O POSITIVE 06/17/18 07:34 Antibody Screen Negative 06/17/18 07:34 Active Medications - Current Medications Current Medications: Generic Name Dose Route Start Last Admin Trade Name Freq PRN Reason Stop Dose Admin Amlodipine Besylate 5 mg 06/23/18 18:00 06/24/18 11:41 Norvasc PO 5 mg QDAY ROCIO Administration Heparin Sodium (Porcine) 5,000 unit 06/19/18 14:00 06/24/18 06:19 Heparin SUB-Q 5,000 unit Q8HR ROCIO Administration Hydralazine HCl 10 mg 06/23/18 15:30 Apresoline IV Q4HR PRN SBP>160 or DBP>110 Metronidazole 500 mg in 100 mls @ 100 mls/hr 06/17/18 10:00 06/24/18 06:19 Flagyl 500 Mg/100 Ml IV 100 mls/hr Q8HR ROCIO Administration Protocol Dextrose/Sodium Chloride 1,000 mls @ 75 mls/hr 06/17/18 14:00 06/24/18 06:22 D5ns IV 125 mls/hr DIRECT ROICO Administration Ceftriaxone Sodium 2 gm in 100 mls @ 200 mls/hr 06/18/18 18:00 06/23/18 17:00 Rocephin/Ns 2 Gm/100 Ml IV 100 mls/hr Q24H ROCIO Administration Protocol Lorazepam 1 mg 06/18/18 03:29 06/20/18 00:23 Ativan IV 1 mg Q4H PRN Administration Alcohol Withdrawal Morphine Sulfate 4 mg 06/22/18 15:45 06/24/18 11:32 Morphine IV 4 mg Q4H PRN Administration Pain, Moderate (4-6) Nicotine 21 mg 06/18/18 10:00 06/24/18 11:31 Habitrol TD Not Given QDAY ROCIO Ondansetron HCl 4 mg 06/17/18 13:00 06/23/18 09:36 Zofran IV 4 mg Q8H PRN Administration N/V IF NPO AND NO IV ACCESS Pantoprazole Sodium 40 mg 06/25/18 10:00 Protonix PO DAILY ROCIO Thiamine HCl 100 mg 06/18/18 10:00 06/24/18 11:41 Vitamin B-1 PO 100 mg QDAY ROCIO Administration
[2018-06-24] MEDS: CATAPRES-TTS PATCH TD SCH (18:54)
[2018-06-24] MEDS: ROCEPHIN/NS 2 GM/100 ML 2 GM/100 ML BAG IV SCH (19:01)
[2018-06-25] MEDS: D5NS 1,000 ML IV SCH (06:27)
[2018-06-25] MEDS: FLAGYL 500 MG/100 ML 500 MG/100 ML BAG IV SCH ×3 (06:27→22:30)
[2018-06-25] MEDS: HEPARIN SUB-Q SCH ×3 (06:28→22:23)
[2018-06-25] MEDS: MORPHINE IV PRN ×5 (06:28→22:22)
[2018-06-25] MEDS: ZOFRAN IV PRN ×2 (06:29→22:22)
[2018-06-25 06:44] LABS: Hematocrit 37.9 % (35.5-45.6); Hemoglobin 13.3 gm/dl (11.8-15.2); Mean Corpuscular HGB Conc 35 % (32-34); Mean Corpuscular Volume 89 fl (84-94); Platelet Count 719 K/mm3 (140-440); Red Blood Count 4.26 M/mm3 (3.65-5.03); Red Cell Distribution Width 13.8 % (13.2-15.2)
[2018-06-25 07:15] LABS: BUN/Creatinine Ratio 5; Blood Urea Nitrogen 4 mg/dL (9-20); Calcium 8.9 mg/dL (8.4-10.2); Hemolysis Index 3
[2018-06-25] MEDS: HABITROL TD SCH ×2 (10:00→10:12)
--- NOTE | 2018-06-25 10:29 | Progress Note ---
Assessment and Plan Cultures: 06/17/2018 blood culture: No growth 06/17/2018 urine culture: No growth 06/18/2018 MRSA PCR: negative A/P: 48-year-old male with history of diverticulosis admitted with: 1) Sepsis Resolved, secondary to acute descending colon diverticulitis: CT without any evidence of perforation or abscess. Gen Surg following. On conservative management. nausea and cramping with clear liquid. Repeat CT Abdomen shows worsening diverticulitis, Small abscess suspected adjacent to the distal sigmoid colon versus a fluid-filled diverticulum. Extend antimicrobial therapy vs surgery. Dr. Ferro following 2) Significant tobacco abuse: Smoking cessation advised. 3) Alcohol abuse: Monitor for withdrawal. Recs: Discontinue Cedtriaxone Start Cefepime 2gms IV every 8 hours Continue Flagyl 500mg IV every 8 hours, D9 [facility] M: [phone] O:[phone] Subjective Date of service: 06/25/18 Interval history: Patient seen and examined. Continued left flank pain and tenderness. No fevers. Objective - Exam Narrative Exam: Constitutional: Alert, cooperative. LUQ and left flank pain tenderness Head, Ears, Nose: Normocephalic, atraumatic. External ears, nose normal Eyes: Conjunctivae/corneas clear. No icterus. No ptosis. Neck: Supple, no meningeal signs Oral: dentition fair, multiple fillings, no thrush Cardiovascular: S1, S2 normal. Respiratory: Good air entry, clear to auscultation bilaterally GI: Soft, left side pain and tenderness; bowel sounds + Musculoskeletal: No pedal edema, no cyanosis. Skin: No rash or abscess Hem/Lymphatic: No palpable cervical or supraclavicular nodes. No lymphangitis Psych: Mood ok. Affect normal Neurological: Awake, alert, oriented. No gross abnormality - Constitutional Vitals: Vital Signs Temp Pulse Resp BP Pulse Ox 98.1 F 69 18 151/93 97 06/24/18 23:33 06/24/18 23:33 06/24/18 23:33 06/24/18 23:33 06/24/18 23:33 Temperature -Last 24 Hours Temperature 98.1 F Temperature 98.0 F Temperature 98.7 F - Labs CBC & Chem 7: 06/25/18 05:15 06/25/18 05:15 Labs: Abnormal lab results 06/25/18 06/25/18 Range/Units 05:15 05:15 MCHC 35 H (32-34) % Plt Count 719 H (140-440) K/mm3 BUN 4 L (9-20) mg/dL
[2018-06-25] MEDS: VITAMIN B-1 PO SCH (11:12)
[2018-06-25] MEDS: PROTONIX PO SCH (11:12)
--- NOTE | 2018-06-25 13:10 | Progress Note ---
Assessment and Plan Pt feeling "much better today" Abd soft. minimal LUQ abd tenderness today (much improved). but pt did have IV narcotics approximately 2 hrs prior to my exam wbc 7.3 clinically improving plan would be to keep pt npo until pain resolved of off IV narcotics then will re-attempt cl liq diet antibiotics as per ID Selected Entries 06/24/18 06/24/18 06/25/18 11:40 11:41 12:29 Temperature 98.7 F 98.3 F Pulse Rate 70 62 Respiratory 18 20 Rate Blood Pressure 159/111 Blood Pressure 124/82 [Left] Laboratory Tests 06/24/18 06/24/18 06/25/18 06:42 06:42 05:15 WBC 8.0 7.3 Hgb 13.3 13.3 Hct 38.5 37.9 Sodium 139 Potassium 4.2 Chloride 103.1 Carbon Dioxide 27 Anion Gap 13 BUN 4 L Creatinine 0.8 Objective Vital Signs - 12hr 06/25/18 06/25/18 06/25/18 10:00 10:29 12:29 Temperature 98.3 F Pulse Rate 62 Respiratory 20 20 Rate Blood Pressure 124/82 [Left] O2 Sat by Pulse 97 98 Oximetry - Labs 06/25/18 05:15 06/25/18 05:15 Diabetes panel 06/25/18 Range/Units 05:15 Sodium 139 (137-145) mmol/L Potassium 4.0 (3.6-5.0) mmol/L Chloride 101.1 (98-107) mmol/L Carbon Dioxide 25 (22-30) mmol/L BUN 4 L (9-20) mg/dL Creatinine 0.8 (0.8-1.5) mg/dL Glucose 98 (75-100) mg/dL Calcium 8.9 (8.4-10.2) mg/dL Calcium panel 06/25/18 06/25/18 Range/Units 05:15 05:15 Calcium 8.9 (8.4-10.2) mg/dL Phosphorus 3.50 (2.5-4.5) mg/dL Pituitary panel 06/25/18 Range/Units 05:15 Sodium 139 (137-145) mmol/L Potassium 4.0 (3.6-5.0) mmol/L Chloride 101.1 (98-107) mmol/L Carbon Dioxide 25 (22-30) mmol/L BUN 4 L (9-20) mg/dL Creatinine 0.8 (0.8-1.5) mg/dL Glucose 98 (75-100) mg/dL Calcium 8.9 (8.4-10.2) mg/dL Adrenal panel 06/25/18 Range/Units 05:15 Sodium 139 (137-145) mmol/L Potassium 4.0 (3.6-5.0) mmol/L Chloride 101.1 (98-107) mmol/L Carbon Dioxide 25 (22-30) mmol/L BUN 4 L (9-20) mg/dL Creatinine 0.8 (0.8-1.5) mg/dL Glucose 98 (75-100) mg/dL Calcium 8.9 (8.4-10.2) mg/dL
[2018-06-25] MEDS: MAXIPIME/NS 2 GM/100 ML 2 GM/100 ML BAG IV SCH ×2 (15:10→21:41)
--- NOTE | 2018-06-25 16:31 | Progress Note ---
Assessment and Plan Assessment and plan: Patient is 48 yo man with a history of tobacco dependency who was admitted for acute diverticulitis, repeat CT abd/pelvis shows worsening diverticulitis with possible small abscess. Patient diet was downgraded by to NPO per Dr. Kern. Patient does not want surgery which was presented as an option. Although the repeat scan was worse yesterday, clinically he is doing better. -Acute complicated diverticulitis: npo, iv abx, GS, Dr. Kern is following -Sepsis due to the above -Tobacco dependency: children counselor on stopping, offered nicotine patch but it causes itching -Alcohol abuse: watch from withdrawal, use Ciwa History Interval history: Patient was seen and examined. Follow-up on current diagnosis with Diverticulitis. Overnight uneventful. Patient denies any chest pain, shortness breath, nausea/vomiting or severe headaches. Imaging, nursing note, chart, labs and old chart reviewed. Discussed with patient. Hospitalist Physical - Physical exam Narrative exam: GEN: WDWN, NAD, Awake, Alert, Orientated HEENT: NCAT, EOMI, PERRL, OP Clear NECK: supple, no adenopathy, no thyromegaly, no JVD CVS/HEART: RRR, normal S1S2, pulses present bilaterally CHEST/LUNGS: CTA B, Symmetrical chest expansion, good air entry bilaterally GI/Abdomen: soft, ND, left side mildly tender, good bowel sounds, no guarding or rebound /Bladder: no suprapubic tenderness, no CVA or paraspinal tenderness EXT/Skin: no c/c/e, no obvious rash MSK: FROM x 4 Neuro: CN 2-12 grossly intact, no new focal deficits Psych: calm - Constitutional Vitals: Temp Pulse Resp BP Pulse Ox 98.3 F 62 20 124/82 98 06/25/18 12:29 06/25/18 12:29 06/25/18 14:33 06/25/18 12:29 06/25/18 12:29 Results - Labs CBC & Chem 7: 06/25/18 05:15 06/25/18 05:15 Labs: Laboratory Last Values WBC 7.3 K/mm3 (4.5-11.0) 06/25/18 05:15 RBC 4.26 M/mm3 (3.65-5.03) 06/25/18 05:15 Hgb 13.3 gm/dl (11.8-15.2) 06/25/18 05:15 Hct 37.9 % (35.5-45.6) 06/25/18 05:15 MCV 89 fl (84-94) 06/25/18 05:15 MCH 31 pg (28-32) 06/25/18 05:15 MCHC 35 % (32-34) H 06/25/18 05:15 RDW 13.8 % (13.2-15.2) 06/25/18 05:15 Plt Count 719 K/mm3 (140-440) H 06/25/18 05:15 Lymph % (Auto) 17.0 % (13.4-35.0) 06/24/18 06:42 [place] % (Auto) 8.7 % (0.0-7.3) H 06/24/18 06:42 Eos % (Auto) 4.0 % (0.0-4.3) 06/24/18 06:42 Baso % (Auto) 0.9 % (0.0-1.8) 06/24/18 06:42 Lymph # 1.4 K/mm3 (1.2-5.4) 06/24/18 06:42 [place] # 0.7 K/mm3 (0.0-0.8) 06/24/18 06:42 Eos # 0.3 K/mm3 (0.0-0.4) 06/24/18 06:42 Baso # 0.1 K/mm3 (0.0-0.1) 06/24/18 06:42 Seg Neutrophils % 69.4 % (40.0-70.0) 06/24/18 06:42 Seg Neutrophils # 5.6 K/mm3 (1.8-7.7) 06/24/18 06:42 Sodium 139 mmol/L (137-145) 06/25/18 05:15 Potassium 4.0 mmol/L (3.6-5.0) 06/25/18 05:15 Chloride 101.1 mmol/L (98-107) 06/25/18 05:15 Carbon Dioxide 25 mmol/L (22-30) 06/25/18 05:15 Anion Gap 17 mmol/L 06/25/18 05:15 BUN 4 mg/dL (9-20) L 06/25/18 05:15 Creatinine 0.8 mg/dL (0.8-1.5) 06/25/18 05:15 Estimated GFR > 60 ml/min 06/25/18 05:15 BUN/Creatinine Ratio 5 % 06/25/18 05:15 Glucose 98 mg/dL (75-100) 06/25/18 05:15 Lactic Acid 1.60 mmol/L (0.7-2.0) 06/17/18 10:18 Calcium 8.9 mg/dL (8.4-10.2) 06/25/18 05:15 Phosphorus 3.50 mg/dL (2.5-4.5) 06/25/18 05:15 Magnesium 2.00 mg/dL (1.7-2.3) 06/25/18 05:15 Total Bilirubin 0.20 mg/dL (0.1-1.2) 06/24/18 06:42 Direct Bilirubin < 0.2 mg/dL (0-0.2) 06/17/18 07:34 Indirect Bilirubin 0.3 mg/dL 06/17/18 07:34 AST 18 units/L (5-40) 06/24/18 06:42 ALT 16 units/L (7-56) 06/24/18 06:42 Alkaline Phosphatase 58 units/L (35-129) 06/24/18 06:42 Total Creatine Kinase 356 units/L (55-170) H 06/17/18 07:34 CK-MB (CK-2) 2.3 ng/mL (0.0-4.0) 06/17/18 07:34 CK-MB (CK-2) Rel Index 0.6 (0-4) 06/17/18 07:34 Troponin T < 0.010 ng/mL (0.00-0.029) 06/17/18 07:34 NT-Pro-B Natriuret Pep 9.44 pg/mL (0-450) 06/17/18 07:34 Total Protein 7.0 g/dL (6.3-8.2) 06/24/18 06:42 Albumin 3.8 g/dL (3.9-5) L 06/24/18 06:42 Albumin/Globulin Ratio 1.2 % 06/24/18 06:42 Lipase 57 units/L (13-60) 06/17/18 07:34 Urine Color Yellow (Yellow) 06/17/18 10:00 Urine Turbidity Clear (Clear) 06/17/18 10:00 Urine pH 8.0 (5.0-7.0) H 06/17/18 10:00 Ur Specific Frederic 1.034 (1.003-1.030) H 06/17/18 10:00 Urine Protein <15 mg/dl mg/dL (Negative) 06/17/18 10:00 Urine Glucose (UA) Neg mg/dL (Negative) 06/17/18 10:00 Urine Ketones Neg mg/dL (Negative) 06/17/18 10:00 Urine Blood Neg (Negative) 06/17/18 10:00 Urine Nitrite Neg (Negative) 06/17/18 10:00 Urine Bilirubin Neg (Negative) 06/17/18 10:00 Urine Urobilinogen < 2.0 mg/dL (<2.0) 06/17/18 10:00 Ur Leukocyte Esterase Neg (Negative) 06/17/18 10:00 Urine WBC (Auto) < 1.0 /HPF (0.0-6.0) 06/17/18 10:00 Urine RBC (Auto) < 1.0 /HPF (0.0-6.0) 06/17/18 10:00 Blood Type O POSITIVE 06/17/18 07:34 Antibody Screen Negative 06/17/18 07:34 Active Medications - Current Medications Current Medications: Generic Name Dose Route Start Last Admin Trade Name Freq PRN Reason Stop Dose Admin Clonidine HCl 0.2 mg 06/24/18 15:00 06/24/18 18:54 Catapres-Tts Patch TD 0.2 mg Mo ROCIO Administration Heparin Sodium (Porcine) 5,000 unit 06/19/18 14:00 06/25/18 14:15 Heparin SUB-Q 5,000 unit Q8HR ROCIO Administration Hydralazine HCl 10 mg 06/23/18 15:30 Apresoline IV Q4HR PRN SBP>160 or DBP>110 Metronidazole 500 mg in 100 mls @ 100 mls/hr 06/17/18 10:00 06/25/18 14:16 Flagyl 500 Mg/100 Ml IV 100 mls/hr Q8HR ROCIO Administration Protocol Dextrose/Sodium Chloride 1,000 mls @ 75 mls/hr 06/17/18 14:00 06/25/18 06:27 D5ns IV 06/25/18 21:00 125 mls/hr DIRECT ROCIO Administration Cefepime HCl 2 gm in 100 mls @ 200 mls/hr 06/25/18 14:00 06/25/18 15:10 Maxipime/Ns 2 Gm/100 Ml IV 200 mls/hr Q8HR ROCIO Administration Protocol Lorazepam 1 mg 06/18/18 03:29 06/20/18 00:23 Ativan IV 1 mg Q4H PRN Administration Alcohol Withdrawal Morphine Sulfate 4 mg 06/22/18 15:45 06/25/18 14:33 Morphine IV 4 mg Q4H PRN Administration Pain, Moderate (4-6) Nicotine 21 mg 06/18/18 10:00 06/25/18 10:12 Habitrol TD Not Given QDAY [facility] Ondansetron HCl 4 mg 06/17/18 13:00 06/25/18 06:29 Zofran IV 4 mg Q8H PRN Administration N/V IF NPO AND NO IV ACCESS Pantoprazole Sodium 40 mg 06/25/18 10:00 06/25/18 11:12 Protonix PO Not Given DAILY [facility] Thiamine HCl 100 mg 06/18/18 10:00 06/25/18 11:12 Vitamin B-1 PO Not Given QDAY [facility] Nutrition/Malnutrition Assess - Dietary Evaluation Nutrition/Malnutrition Findings: Nutrition Notes Start: 06/24/18 15:58 Freq: Status: Active Protocol: Document 06/25/18 14:45 RM (Rec: 06/25/18 14:55 RM [id number]) Nutrition Notes Initial or Follow up Reassessment Current Diagnosis Hypertension Other Pertinent Diagnosis Diverticulosis, Abdominal pain , N/V/D Current Diet TPN/PPN Labs/Tests Reviewed Pertinent Medications Reviewed Height 5 ft 10 in Weight 91.9 kg [place] Body Weight (kg) 75.45 BMI 29.0 Subjective/Other Information Consulted for PPN recommendation. Pt made NPO d/t worsening diverticulitis. Burn Absent Trauma Absent #1 Nutrition Diagnosis Inadequate oral intake Diagnosis Progress(for reassessment Continues documentation) Is patient on ventilator? No Is Patient Ambulatory and/or Out of Bed Yes REE-([facility]-ambulatory/OOB) [ 0106.825 [id number]] Additional Notes Protein Needs: 74-92g (0.8-1g/ kg) Fluid Needs: 1 ml/kcal Nutrition Intervention Change Diet Order: Advance diet when medically able Nutrition Support: PPN at 100 ml/hr: 4.2% Dextrose, 3.1% AA, 150 mEq Na, 60 mEq K, 5 mEq Ca, 20 mmol P , Cl/Acetate: 50/50, MVI, MTE, Thiamine Kcal 636 Protein (gm) 74 Carbohydrates (gm) 100 Fat (gm) 0 Fluid (mL) 2,400 Fiber (gm) 0 Goal #1 PPN to meet calorie and protein needs as best possible Goal #2 Diet advancement Anticipated Discharge Needs: Unable to determine at this time Follow-Up By: 06/26/18 Additional Comments Follow for labs: BMP, Mag, Phos, TG
[2018-06-25] MEDS ORDERED: TPN ADULT 2,400 ML IV SCH (20:00)
[2018-06-26] MEDS: MORPHINE IV PRN ×4 (04:25→22:05)
[2018-06-26] MEDS: MAXIPIME/NS 2 GM/100 ML 2 GM/100 ML BAG IV SCH ×3 (06:20→22:04)
[2018-06-26] MEDS: HEPARIN SUB-Q SCH ×3 (06:22→22:05)
[2018-06-26] MEDS: FLAGYL 500 MG/100 ML 500 MG/100 ML BAG IV SCH ×3 (07:41→22:04)
[2018-06-26 07:52] LABS: BUN/Creatinine Ratio 9; Blood Urea Nitrogen 7 mg/dL (9-20); Calcium 9.2 mg/dL (8.4-10.2); Hemolysis Index 9
--- NOTE | 2018-06-26 08:36 | Progress Note ---
Assessment and Plan Pt status quo. no complaints Abd soft. minimal tenderness at present. states last pain med around 4 am today stable attempt po jello... cbc in am Selected Entries 06/26/18 06/26/18 05:34 05:38 Temperature 98.2 F Respiratory 20 Rate O2 Sat by Pulse 100 Oximetry Blood Pressure 128/92 Laboratory Tests 06/26/18 07:01 Sodium 137 Potassium 4.0 Chloride 100.4 Carbon Dioxide 24 BUN 7 L Creatinine 0.8 Objective Vital Signs - 12hr 06/25/18 06/25/18 06/25/18 22:00 22:22 23:46 Temperature Respiratory 20 20 20 Rate Blood Pressure 170/108 O2 Sat by Pulse Oximetry 06/26/18 06/26/18 06/26/18 04:24 04:25 05:34 Temperature Respiratory 20 20 20 Rate Blood Pressure 152/99 128/92 O2 Sat by Pulse Oximetry 06/26/18 05:38 Temperature 98.2 F Respiratory Rate Blood Pressure O2 Sat by Pulse 100 Oximetry - Labs 06/25/18 05:15 06/26/18 07:01 Diabetes panel 06/26/18 Range/Units 07:01 Sodium 137 (137-145) mmol/L Potassium 4.0 (3.6-5.0) mmol/L Chloride 100.4 (98-107) mmol/L Carbon Dioxide 24 (22-30) mmol/L BUN 7 L (9-20) mg/dL Creatinine 0.8 (0.8-1.5) mg/dL Glucose 77 (75-100) mg/dL Calcium 9.2 (8.4-10.2) mg/dL Triglycerides 103 (2-149) mg/dL Calcium panel 06/25/18 06/26/18 Range/Units 05:15 07:01 Calcium 9.2 (8.4-10.2) mg/dL Phosphorus 3.50 3.40 (2.5-4.5) mg/dL Pituitary panel 06/26/18 Range/Units 07:01 Sodium 137 (137-145) mmol/L Potassium 4.0 (3.6-5.0) mmol/L Chloride 100.4 (98-107) mmol/L Carbon Dioxide 24 (22-30) mmol/L BUN 7 L (9-20) mg/dL Creatinine 0.8 (0.8-1.5) mg/dL Glucose 77 (75-100) mg/dL Calcium 9.2 (8.4-10.2) mg/dL Adrenal panel 06/26/18 Range/Units 07:01 Sodium 137 (137-145) mmol/L Potassium 4.0 (3.6-5.0) mmol/L Chloride 100.4 (98-107) mmol/L Carbon Dioxide 24 (22-30) mmol/L BUN 7 L (9-20) mg/dL Creatinine 0.8 (0.8-1.5) mg/dL Glucose 77 (75-100) mg/dL Calcium 9.2 (8.4-10.2) mg/dL
[2018-06-26] MEDS: PROTONIX PO SCH (09:30)
[2018-06-26] MEDS: VITAMIN B-1 PO SCH (09:30)
--- NOTE | 2018-06-26 10:17 | Progress Note ---
Assessment and Plan Cultures: 06/17/2018 blood culture: No growth 06/17/2018 urine culture: No growth 06/18/2018 MRSA PCR: negative A/P: 48-year-old male with history of diverticulosis admitted with: 1) Sepsis Resolved, secondary to acute descending colon diverticulitis: CT without any evidence of perforation or abscess. Gen Surg following. On conservative management. nausea and cramping with clear liquid. Repeat CT Abdomen shows worsening diverticulitis, Small abscess suspected adjacent to the distal sigmoid colon versus a fluid-filled diverticulum. Extend antimicrobial therapy vs surgery. Dr. Ferro following 2) Significant tobacco abuse: Smoking cessation advised. 3) Alcohol abuse: Monitor for withdrawal. Recs: Start Cefepime 2gms IV every 8 hours, D2 Continue Flagyl 500mg IV every 8 hours, D10 [facility] M: [phone] O:[phone] Subjective Date of service: 06/26/18 Interval history: Patient seen and examined. Left flank pain front tender, but improved. Tolerating clears. no acute distress. Objective - Exam Narrative Exam: Constitutional: Alert, cooperative. no acute distress Head, Ears, Nose: Normocephalic, atraumatic. External ears, nose normal Eyes: Conjunctivae/corneas clear. No icterus. No ptosis. Neck: Supple, no meningeal signs Oral: dentition fair, multiple fillings, no thrush Cardiovascular: S1, S2 normal. Respiratory: Good air entry, clear to auscultation bilaterally GI: Soft, left side pain and tenderness- improved. bowel sounds + Musculoskeletal: No pedal edema, no cyanosis. Skin: No rash or abscess Hem/Lymphatic: No palpable cervical or supraclavicular nodes. No lymphangitis Psych: Mood ok. Affect normal Neurological: Awake, alert, oriented. No gross abnormality - Constitutional Vitals: Vital Signs Temp Pulse Resp BP Pulse Ox 98.2 F 58 L 20 128/92 100 06/26/18 05:38 06/25/18 17:28 06/26/18 05:34 06/26/18 05:34 06/26/18 05:38 Temperature -Last 24 Hours Temperature 98.2 F Temperature 98.6 F Temperature 98.3 F - Labs CBC & Chem 7: 06/25/18 05:15 06/26/18 07:01 Labs: Abnormal lab results 06/26/18 Range/Units 07:01 BUN 7 L (9-20) mg/dL
--- NOTE | 2018-06-26 15:43 | Progress Note ---
Assessment and Plan Patient is 48 yo man with a history of tobacco dependency who was admitted for acute diverticulitis, repeat CT abd/pelvis shows worsening diverticulitis with possible small abscess. Patient diet was downgraded by to NPO per Dr. Kern. Patient does not want surgery which was presented as an option. Although the repeat scan was worse yesterday, clinically he is doing better. -Acute complicated diverticulitis: On PPN, iv abx, GS, Dr. 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 Interval history: Patient is to examine abdominal pain. No nausea no vomiting. No hematemesis or melena. Objective - Exam Narrative Exam: Constitutional: Well-nourished well-developed. In no distress Head: Normocephalic atraumatic Eyes: Pupils are equal round and reactive to light Nose: No enlarged turbinates, no septal deviation. Mouth: Moist mucous membranes. Neck: Supple no thyromegaly. No bruit. No JVD Heart: Regular rate and rhythm, S1-S2 normal. No rubs murmurs or gallop Lungs: Clear to auscultation bilaterally. no rales or rhonchi Abdomen: Soft, tender. Bowel sound are present. Extremities: No edema, no cyanosis, no clubbing. Neuro: Alert oriented Oriented x3. No focal sensory or motor deficit. Skin: No rashes or hyperpigmented spots Musculoskeletal system: No joint pain or swelling Hematological: No petechia or subcutanous hemorrhages. Immunological: No multiple septic spots on the skin Lymphatic: No generalized lymphadenopathy Psychiatry: Euthymic. Calm. - Constitutional Vitals: Vital Signs - 12hr 06/26/18 06/26/18 06/26/18 04:24 04:25 05:34 Temperature Pulse Rate Respiratory 20 20 20 Rate Blood Pressure 152/99 128/92 O2 Sat by Pulse Oximetry 06/26/18 06/26/18 05:38 11:14 Temperature 98.2 F 98.4 F Pulse Rate 64 Respiratory 20 Rate Blood Pressure 130/85 O2 Sat by Pulse 100 94 Oximetry - Labs CBC & Chem 7: 06/25/18 05:15 06/26/18 07:01 Labs: Abnormal lab results 06/26/18 06/26/18 Range/Units 07:01 11:17 BUN 7 L (9-20) mg/dL POC Glucose 122 H (70-105)
[2018-06-26] MEDS: APRESOLINE IV PRN (18:15)
[2018-06-26] MEDS ORDERED: TPN ADULT 2,400 ML IV SCH (20:00)
[2018-06-26] MEDS ORDERED: INTRALIPID 20% 250 ML IV SCH (20:00)
[2018-06-27] MEDS: MORPHINE IV PRN ×4 (03:30→20:46)
[2018-06-27 06:34] LABS: Basophils # (Auto) 0.1 K/mm3 (0.0-0.1); Basophils % (Auto) 0.7 % (0.0-1.8); Eosinophils # (Auto) 0.3 K/mm3 (0.0-0.4); Eosinophils % (Auto) 3.8 % (0.0-4.3); Hematocrit 37.6 % (35.5-45.6); Hemoglobin 13.3 gm/dl (11.8-15.2); Lymphocytes # (Auto) 1.8 K/mm3 (1.2-5.4); Lymphocytes % (Auto) 24.7 % (13.4-35.0); Mean Corpuscular HGB Conc 36 % (32-34); Mean Corpuscular Volume 90 fl (84-94); Monocytes # (Auto) 0.7 K/mm3 (0.0-0.8); Monocytes % (Auto) 9.1 % (0.0-7.3); Platelet Count 801 K/mm3 (140-440); Red Blood Count 4.19 M/mm3 (3.65-5.03); Red Cell Distribution Width 13.7 % (13.2-15.2)
[2018-06-27] MEDS: MAXIPIME/NS 2 GM/100 ML 2 GM/100 ML BAG IV SCH ×3 (06:49→21:09)
[2018-06-27] MEDS: FLAGYL 500 MG/100 ML 500 MG/100 ML BAG IV SCH ×3 (06:49→22:07)
[2018-06-27 06:56] LABS: BUN/Creatinine Ratio 13; Blood Urea Nitrogen 10 mg/dL (9-20); Calcium 9.3 mg/dL (8.4-10.2); Hemolysis Index 9
--- NOTE | 2018-06-27 10:36 | Progress Note ---
Assessment and Plan Cultures: 06/17/2018 blood culture: No growth 06/17/2018 urine culture: No growth 06/18/2018 MRSA PCR: negative A/P: 48-year-old male with history of diverticulosis admitted with: 1) Sepsis Resolved, secondary to acute descending colon diverticulitis: CT without any evidence of perforation or abscess. Gen Surg following. On conservative management. nausea and cramping with clear liquid. Repeat CT Abdomen shows worsening diverticulitis, Small abscess suspected adjacent to the distal sigmoid colon versus a fluid-filled diverticulum. Extend antimicrobial therapy vs surgery. Repeat CT of abdomen/pelvis next week. Dr. Orellana following. 2) Significant tobacco abuse: Smoking cessation advised. 3) Alcohol abuse: Monitor for withdrawal. Recs: Continue Cefepime 2gms IV every 8 hours, D3 Continue Flagyl 500mg IV every 8 hours, D11 Once tolerating PO, Anticipate discharge on Augmentin 875 mg PO BID for 7 days [facility] M: [phone] O:[phone] Subjective Date of service: 06/27/18 Principal diagnosis: cardiovascular diverticulitis, sepsis, alcohol abuse. Interval history: Patient seen and examined. Left flank pain draw frame tender, but improved. Tolerating clears. no acute distress. Objective - Exam Narrative Exam: Constitutional: Alert, cooperative. no acute distress Head, Ears, Nose: Normocephalic, atraumatic. External ears, nose normal Eyes: Conjunctivae/corneas clear. No icterus. No ptosis. Neck: Supple, no meningeal signs Oral: dentition fair, multiple fillings, no thrush Cardiovascular: S1, S2 normal. Respiratory: Good air entry, clear to auscultation bilaterally GI: Soft, left side pain and tenderness- improved. bowel sounds + Musculoskeletal: No pedal edema, no cyanosis. Skin: No rash or abscess Hem/Lymphatic: No palpable cervical or supraclavicular nodes. No lymphangitis Psych: Mood ok. Affect normal Neurological: Awake, alert, oriented. No gross abnormality - Constitutional Vitals: Vital Signs Temp Pulse Resp BP Pulse Ox 98.5 F 65 20 136/92 98 06/27/18 05:07 06/27/18 05:07 06/27/18 05:07 06/27/18 05:07 06/27/18 05:07 Temperature -Last 24 Hours Temperature 98.5 F Temperature 98.1 F Temperature 98.3 F Temperature 98.4 F - Labs CBC & Chem 7: 06/27/18 05:51 06/27/18 05:51 Labs: Abnormal lab results 06/26/18 06/27/18 06/27/18 Range/Units 11:17 05:09 05:51 MCHC 36 H (32-34) % Plt Count 801 H (140-440) K/mm3 [place] % (Auto) 9.1 H (0.0-7.3) % POC Glucose 122 H 106 H (70-105)
[2018-06-27] MEDS: VITAMIN B-1 PO SCH (10:54)
[2018-06-27] MEDS: PROTONIX PO SCH (10:54)
--- NOTE | 2018-06-27 11:17 | Progress Note ---
Assessment and Plan Pt status quo. afebrile states "feeling well" elisabeth cl liq but states some "gas pains" over area in question. neg N or V Abd soft, status quo stable will still limit to cl liq for time being f/u CT Sunday Selected Entries 06/27/18 05:07 Temperature 98.5 F Pulse Rate 65 Respiratory 20 Rate Blood Pressure 136/92 Laboratory Tests 06/27/18 05:51 WBC 7.4 Objective Vital Signs - 12hr 06/27/18 06/27/18 00:14 05:07 Temperature 98.1 F 98.5 F Pulse Rate 69 65 Respiratory 20 20 Rate Blood Pressure 118/80 136/92 O2 Sat by Pulse 97 98 Oximetry - Labs 06/27/18 05:51 06/27/18 05:51 Diabetes panel 06/27/18 Range/Units 05:51 Sodium 137 (137-145) mmol/L Potassium 4.8 (3.6-5.0) mmol/L Chloride 100.3 (98-107) mmol/L Carbon Dioxide 26 (22-30) mmol/L BUN 10 (9-20) mg/dL Creatinine 0.8 (0.8-1.5) mg/dL Glucose 87 (75-100) mg/dL Calcium 9.3 (8.4-10.2) mg/dL Calcium panel 06/27/18 Range/Units 05:51 Calcium 9.3 (8.4-10.2) mg/dL Phosphorus 3.70 (2.5-4.5) mg/dL Pituitary panel 06/27/18 Range/Units 05:51 Sodium 137 (137-145) mmol/L Potassium 4.8 (3.6-5.0) mmol/L Chloride 100.3 (98-107) mmol/L Carbon Dioxide 26 (22-30) mmol/L BUN 10 (9-20) mg/dL Creatinine 0.8 (0.8-1.5) mg/dL Glucose 87 (75-100) mg/dL Calcium 9.3 (8.4-10.2) mg/dL Adrenal panel 06/27/18 Range/Units 05:51 Sodium 137 (137-145) mmol/L Potassium 4.8 (3.6-5.0) mmol/L Chloride 100.3 (98-107) mmol/L Carbon Dioxide 26 (22-30) mmol/L BUN 10 (9-20) mg/dL Creatinine 0.8 (0.8-1.5) mg/dL Glucose 87 (75-100) mg/dL Calcium 9.3 (8.4-10.2) mg/dL
[2018-06-27] MEDS: HEPARIN SUB-Q SCH ×3 (14:52→21:10)
--- NOTE | 2018-06-27 15:40 | Progress Note ---
Assessment and Plan Patient is 48 yo man with a history of tobacco dependency who was admitted for acute diverticulitis, repeat CT abd/pelvis shows worsening diverticulitis with possible small abscess. Patient diet was downgraded by to NPO per Dr. Kern. Patient does not want surgery which was presented as an option. Although the repeat scan was worse yesterday, clinically he is doing better. -Acute complicated diverticulitis: On PPN, iv abx, GS, Dr. Kern is following Continue on clear liquids Surgical inputs noted and appreciated -Sepsis due to the above Continue IV antibiotics -Tobacco dependency: children counselor on stopping, offered nicotine patch but it causes itching -Alcohol abuse: watch from withdrawal, use Ciwa - DVT prophylaxis with heparin and GI Pepcid - Disposition if patient tolerates full liquids, would discontinue PPN discharge if okay with surgeon Subjective Date of service: 06/27/18 Principal diagnosis: diverticulitis, sepsis, alcohol abuse. Interval history: Patient is to examine. Still complaining of abdominal tenderness. No fever. No nausea no vomiting. No hematemesis or melena. Tolerating clear liquids Objective - Exam Narrative Exam: Constitutional: Well-nourished well-developed. In no distress Head: Normocephalic atraumatic Eyes: Pupils are equal round and reactive to light Nose: No enlarged turbinates, no septal deviation. Mouth: Moist mucous membranes. Neck: Supple no thyromegaly. No bruit. No JVD Heart: Regular rate and rhythm, S1-S2 normal. No rubs murmurs or gallop Lungs: Clear to auscultation bilaterally. no rales or rhonchi Abdomen: Soft, tender. Bowel sound are present. Extremities: No edema, no cyanosis, no clubbing. Neuro: Alert oriented Oriented x3. No focal sensory or motor deficit. Skin: No rashes or hyperpigmented spots Musculoskeletal system: No joint pain or swelling Hematological: No petechia or subcutanous hemorrhages. Immunological: No multiple septic spots on the skin Lymphatic: No generalized lymphadenopathy Psychiatry: Euthymic. Calm. - Constitutional Vitals: Vital Signs - 12hr 06/27/18 06/27/18 05:07 10:58 Temperature 98.5 F 97.5 F L Pulse Rate 65 68 Respiratory 20 22 Rate Blood Pressure 136/92 125/94 O2 Sat by Pulse 98 95 Oximetry - Labs CBC & Chem 7: 06/27/18 05:51 06/27/18 05:51 Labs: Abnormal lab results 06/27/18 06/27/18 06/27/18 Range/Units 05:09 05:51 12:01 MCHC 36 H (32-34) % Plt Count 801 H (140-440) K/mm3 [place] % (Auto) 9.1 H (0.0-7.3) % POC Glucose 106 H 66 L (70-105)
[2018-06-27] MEDS ORDERED: TPN ADULT 2,400 ML IV SCH (20:00)
[2018-06-28] MEDS: MORPHINE IV PRN ×5 (03:45→22:11)
[2018-06-28] MEDS: ZOFRAN IV PRN (03:46)
[2018-06-28] MEDS: FLAGYL 500 MG/100 ML 500 MG/100 ML BAG IV SCH ×3 (06:32→21:45)
[2018-06-28] MEDS: HEPARIN SUB-Q SCH ×3 (06:35→21:45)
[2018-06-28] MEDS: MAXIPIME/NS 2 GM/100 ML 2 GM/100 ML BAG IV SCH ×3 (06:35→21:45)
[2018-06-28 08:14] LABS: BUN/Creatinine Ratio 11; Blood Urea Nitrogen 8 mg/dL (9-20); Hemolysis Index 5
--- NOTE | 2018-06-28 08:48 | Progress Note ---
Assessment and Plan Pt status quo. Abd soft. stable cut back on IV narcotics continue limited cl liq diet f/u CT abd on Sunday Objective Vital Signs - 12hr 06/27/18 06/28/18 06/28/18 21:32 03:45 04:49 Temperature 98.2 F 97.6 F Pulse Rate 62 74 Respiratory 16 24 16 Rate Blood Pressure 132/84 125/84 O2 Sat by Pulse 94 98 Oximetry - Labs 06/27/18 05:51 06/28/18 07:17 Diabetes panel 06/28/18 Range/Units 07:17 Sodium 138 (137-145) mmol/L Potassium 4.1 (3.6-5.0) mmol/L Chloride 102.9 (98-107) mmol/L Carbon Dioxide 22 (22-30) mmol/L BUN 8 L (9-20) mg/dL Creatinine 0.7 L (0.8-1.5) mg/dL Glucose 103 H (75-100) mg/dL Calcium 9.0 (8.4-10.2) mg/dL Calcium panel 06/28/18 Range/Units 07:17 Calcium 9.0 (8.4-10.2) mg/dL Phosphorus 4.10 (2.5-4.5) mg/dL Pituitary panel 06/28/18 Range/Units 07:17 Sodium 138 (137-145) mmol/L Potassium 4.1 (3.6-5.0) mmol/L Chloride 102.9 (98-107) mmol/L Carbon Dioxide 22 (22-30) mmol/L BUN 8 L (9-20) mg/dL Creatinine 0.7 L (0.8-1.5) mg/dL Glucose 103 H (75-100) mg/dL Calcium 9.0 (8.4-10.2) mg/dL Adrenal panel 06/28/18 Range/Units 07:17 Sodium 138 (137-145) mmol/L Potassium 4.1 (3.6-5.0) mmol/L Chloride 102.9 (98-107) mmol/L Carbon Dioxide 22 (22-30) mmol/L BUN 8 L (9-20) mg/dL Creatinine 0.7 L (0.8-1.5) mg/dL Glucose 103 H (75-100) mg/dL Calcium 9.0 (8.4-10.2) mg/dL
[2018-06-28] MEDS: PROTONIX PO SCH (09:31)
[2018-06-28] MEDS: VITAMIN B-1 PO SCH (09:31)
--- NOTE | 2018-06-28 10:30 | Progress Note ---
Assessment and Plan Cultures: 06/17/2018 blood culture: No growth 06/17/2018 urine culture: No growth 06/18/2018 MRSA PCR: negative A/P: 48-year-old male with history of diverticulosis admitted with: 1) Sepsis Resolved, secondary to acute descending colon diverticulitis: CT without any evidence of perforation or abscess. Gen Surg following. On conservative management. nausea and cramping with clear liquid. Repeat CT Abdomen shows worsening diverticulitis, Small abscess suspected adjacent to the distal sigmoid colon versus a fluid-filled diverticulum. Extend antimicrobial therapy vs surgery. Repeat CT of abdomen/pelvis next week. Dr. Orellana following. 2) Significant tobacco abuse: Smoking cessation advised. 3) Alcohol abuse: Monitor for withdrawal. Recs: Continue Cefepime 2gms IV every 8 hours, D4 Continue Flagyl 500mg IV every 8 hours, D12 Once tolerating PO, Anticipate discharge on Augmentin 875 mg PO BID for [address] Lennon will be property economist this weekend, , please call for questions. [facility] M: [phone] O:[phone] Subjective Date of service: 06/28/18 Principal diagnosis: diverticulitis, sepsis, alcohol abuse. Interval history: Patient seen and examined. Left flank pain still cleaner, but improved. Tolerating clears. no acute distress. Objective - Exam Narrative Exam: Constitutional: Alert, cooperative. no acute distress Head, Ears, Nose: Normocephalic, atraumatic. External ears, nose normal Eyes: Conjunctivae/corneas clear. No icterus. No ptosis. Neck: Supple, no meningeal signs Oral: dentition fair, multiple fillings, no thrush Cardiovascular: S1, S2 normal. Respiratory: Good air entry, clear to auscultation bilaterally GI: Soft, left side pain and tenderness- improved. bowel sounds + Musculoskeletal: No pedal edema, no cyanosis. Skin: No rash or abscess Hem/Lymphatic: No palpable cervical or supraclavicular nodes. No lymphangitis Psych: Mood ok. Affect normal Neurological: Awake, alert, oriented. No gross abnormality - Constitutional Vitals: Vital Signs Temp Pulse Resp BP Pulse Ox 97.6 F 74 16 125/84 98 06/28/18 04:49 06/28/18 04:49 06/28/18 04:49 06/28/18 04:49 06/28/18 04:49 Temperature -Last 24 Hours Temperature 97.6 F Temperature 98.2 F Temperature 98.4 F Temperature 98.1 F Temperature 97.5 F - Labs CBC & Chem 7: 06/27/18 05:51 06/28/18 07:17 Labs: Abnormal lab results 06/27/18 06/28/18 Range/Units 12:01 07:17 BUN 8 L (9-20) mg/dL Creatinine 0.7 L (0.8-1.5) mg/dL Glucose 103 H (75-100) mg/dL POC Glucose 66 L (70-105)
[2018-06-28] MEDS: HABITROL TD SCH (13:22)
--- NOTE | 2018-06-28 15:33 | Progress Note ---
Assessment and Plan Assessment and plan: Patient is 48 yo man with a history of tobacco dependency who was admitted for acute diverticulitis, repeat CT abd/pelvis shows worsening diverticulitis with possible small abscess. Patient diet was downgraded by to NPO per Dr. Kern. Patient does not want surgery which was presented as an option. Although the repeat scan was worse yesterday, clinically he is doing better. -Acute complicated diverticulitis: On PPN, iv abx, GS, Dr. Kern is following Continue on clear liquids Surgical inputs noted and appreciated CT planned for sunday Patient currently refusing surgery -Sepsis due to the above Continue IV antibiotics -Tobacco dependency: professor of counseling on stopping, pt verbalized understanding 15 mins of counselling provided -Alcohol abuse: watch from withdrawal, use Ciwa - DVT prophylaxis with heparin and GI Pepcid - Disposition if patient tolerates full liquids, would discontinue PPN discharge if okay with surgeon Counselling provided to the patient about leaving the floor to smoke. Nicotine patch ordered and patient now agreeable after initial refusal a few days ago History Interval history: Patient seen and examined, remains NPO and on TPN, no new complaints. Nursing staff reports patient leaving the floor to go smoke, counselling provided Hospitalist Physical - Physical exam Narrative exam: Constitutional: Well-nourished well-developed. In no distress Head: Normocephalic atraumatic Eyes: Pupils are equal round and reactive to light Nose: No enlarged turbinates, no septal deviation. Mouth: Moist mucous membranes. Neck: Supple no thyromegaly. No bruit. No JVD Heart: Regular rate and rhythm, S1-S2 normal. No rubs murmurs or gallop Lungs: Clear to auscultation bilaterally. no rales or rhonchi Abdomen: Soft, tender. Bowel sound are present. Extremities: No edema, no cyanosis, no clubbing. Neuro: Alert oriented Oriented x3. No focal sensory or motor deficit. Skin: No rashes or hyperpigmented spots Musculoskeletal system: No joint pain or swelling Hematological: No petechia or subcutanous hemorrhages. Immunological: No multiple septic spots on the skin Lymphatic: No generalized lymphadenopathy Psychiatry: Euthymic. Calm. - Constitutional Vitals: Temp Pulse Resp BP Pulse Ox 97.6 F 74 16 125/84 98 06/28/18 04:49 06/28/18 04:49 06/28/18 04:49 06/28/18 04:49 06/28/18 04:49 Results - Labs CBC & Chem 7: 06/27/18 05:51 06/29/18 07:13 Labs: Laboratory Last Values WBC 7.4 K/mm3 (4.5-11.0) 06/27/18 05:51 RBC 4.19 M/mm3 (3.65-5.03) 06/27/18 05:51 Hgb 13.3 gm/dl (11.8-15.2) 06/27/18 05:51 Hct 37.6 % (35.5-45.6) 06/27/18 05:51 MCV 90 fl (84-94) 06/27/18 05:51 MCH 32 pg (28-32) 06/27/18 05:51 MCHC 36 % (32-34) H 06/27/18 05:51 RDW 13.7 % (13.2-15.2) 06/27/18 05:51 Plt Count 801 K/mm3 (140-440) H 06/27/18 05:51 Lymph % (Auto) 24.7 % (13.4-35.0) 06/27/18 05:51 [place] % (Auto) 9.1 % (0.0-7.3) H 06/27/18 05:51 Eos % (Auto) 3.8 % (0.0-4.3) 06/27/18 05:51 Baso % (Auto) 0.7 % (0.0-1.8) 06/27/18 05:51 Lymph # 1.8 K/mm3 (1.2-5.4) 06/27/18 05:51 Mobile # 0.7 K/mm3 (0.0-0.8) 06/27/18 05:51 Eos # 0.3 K/mm3 (0.0-0.4) 06/27/18 05:51 Baso # 0.1 K/mm3 (0.0-0.1) 06/27/18 05:51 Seg Neutrophils % 61.7 % (40.0-70.0) 06/27/18 05:51 Seg Neutrophils # 4.5 K/mm3 (1.8-7.7) 06/27/18 05:51 Sodium 138 mmol/L (137-145) 06/28/18 07:17 Potassium 4.1 mmol/L (3.6-5.0) 06/28/18 07:17 Chloride 102.9 mmol/L (98-107) 06/28/18 07:17 Carbon Dioxide 22 mmol/L (22-30) 06/28/18 07:17 Anion Gap 17 mmol/L 06/28/18 07:17 BUN 8 mg/dL (9-20) L 06/28/18 07:17 Creatinine 0.7 mg/dL (0.8-1.5) L 06/28/18 07:17 Estimated GFR > 60 ml/min 06/28/18 07:17 BUN/Creatinine Ratio 11 % 06/28/18 07:17 Glucose 103 mg/dL (75-100) H 06/28/18 07:17 POC Glucose 107 (70-105) H 06/28/18 12:23 Lactic Acid 1.60 mmol/L (0.7-2.0) 06/17/18 10:18 Calcium 9.0 mg/dL (8.4-10.2) 06/28/18 07:17 Phosphorus 4.10 mg/dL (2.5-4.5) 06/28/18 07:17 Magnesium 1.80 mg/dL (1.7-2.3) 06/28/18 07:17 Total Bilirubin 0.20 mg/dL (0.1-1.2) 06/24/18 06:42 Direct Bilirubin < 0.2 mg/dL (0-0.2) 06/17/18 07:34 Indirect Bilirubin 0.3 mg/dL 06/17/18 07:34 AST 18 units/L (5-40) 06/24/18 06:42 ALT 16 units/L (7-56) 06/24/18 06:42 Alkaline Phosphatase 58 units/L (35-129) 06/24/18 06:42 Total Creatine Kinase 356 units/L (55-170) H 06/17/18 07:34 CK-MB (CK-2) 2.3 ng/mL (0.0-4.0) 06/17/18 07:34 CK-MB (CK-2) Rel Index 0.6 (0-4) 06/17/18 07:34 Troponin T < 0.010 ng/mL (0.00-0.029) 06/17/18 07:34 NT-Pro-B Natriuret Pep 9.44 pg/mL (0-450) 06/17/18 07:34 Total Protein 7.0 g/dL (6.3-8.2) 06/24/18 06:42 Albumin 3.8 g/dL (3.9-5) L 06/24/18 06:42 Albumin/Globulin Ratio 1.2 % 06/24/18 06:42 Triglycerides 103 mg/dL (2-149) 06/26/18 07:01 Lipase 57 units/L (13-60) 06/17/18 07:34 Urine Color Yellow (Yellow) 06/17/18 10:00 Urine Turbidity Clear (Clear) 06/17/18 10:00 Urine pH 8.0 (5.0-7.0) H 06/17/18 10:00 Ur Specific [place] 1.034 (1.003-1.030) H 06/17/18 10:00 Urine Protein <15 mg/dl mg/dL (Negative) 06/17/18 10:00 Urine Glucose (UA) Neg mg/dL (Negative) 06/17/18 10:00 Urine Ketones Neg mg/dL (Negative) 06/17/18 10:00 Urine Blood Neg (Negative) 06/17/18 10:00 Urine Nitrite Neg (Negative) 06/17/18 10:00 Urine Bilirubin Neg (Negative) 06/17/18 10:00 Urine Urobilinogen < 2.0 mg/dL (<2.0) 06/17/18 10:00 Ur Leukocyte Esterase Neg (Negative) 06/17/18 10:00 Urine WBC (Auto) < 1.0 /HPF (0.0-6.0) 06/17/18 10:00 Urine RBC (Auto) < 1.0 /HPF (0.0-6.0) 06/17/18 10:00 Blood Type O POSITIVE 06/17/18 07:34 Antibody Screen Negative 06/17/18 07:34 Active Medications - Current Medications Current Medications: Generic Name Dose Route Start Last Admin Trade Name Freq PRN Reason Stop Dose Admin Clonidine HCl 0.2 mg 06/24/18 15:00 06/24/18 18:54 Catapres-Tts Patch TD 0.2 mg Mo ROCIO Administration Heparin Sodium (Porcine) 5,000 unit 06/19/18 14:00 06/28/18 13:23 Heparin SUB-Q 5,000 unit Q8HR ROCIO Administration Hydralazine HCl 10 mg 06/23/18 15:30 06/26/18 18:15 Apresoline IV 10 mg Q4HR PRN Administration SBP>160 or DBP>110 Metronidazole 500 mg in 100 mls @ 100 mls/hr 06/17/18 10:00 06/28/18 13:23 Flagyl 500 Mg/100 Ml IV 100 mls/hr Q8HR [facility] Administration Protocol Cefepime HCl 2 gm in 100 mls @ 200 mls/hr 06/25/18 14:00 06/28/18 13:23 Maxipime/Ns 2 Gm/100 Ml IV 200 mls/hr Q8HR [facility]1983 Administration Protocol Amino Acids/Electrolytes/Dextrose 2,400 mls @ 100 mls/hr 06/27/18 20:00 06/27/18 20:57 Tpn Adult IV 06/28/18 19:59 100 mls/hr DAILY@1999 [facility] Administration Protocol Fat Emulsion Intravenous 250 mls @ 21 mls/hr 06/28/18 20:00 Intralipid 20% IV 06/29/18 08:00 DAILY@1999 [facility] Amino Acids/Electrolytes/Dextrose 2,400 mls @ 100 mls/hr 06/28/18 20:00 Tpn Adult IV 06/29/18 19:59 DAILY@1999 [facility]1983 Protocol Lorazepam 1 mg 06/18/18 03:29 06/20/18 00:23 Ativan IV 1 mg Q4H PRN Administration Alcohol Withdrawal Morphine Sulfate 2 mg 06/28/18 08:09 06/28/18 12:03 Morphine IV 2 mg Q4H PRN Administration Pain, Moderate (4-6) Nicotine 21 mg 06/28/18 12:00 06/28/18 13:22 Habitrol TD 21 mg QDAY ROCIO Administration Ondansetron HCl 4 mg 06/17/18 13:00 06/28/18 03:46 Zofran IV 4 mg Q8H PRN Administration N/V IF NPO AND NO IV ACCESS Pantoprazole Sodium 40 mg 06/25/18 10:00 06/28/18 09:31 Protonix PO 40 mg DAILY ROCIO Administration Thiamine HCl 100 mg 06/18/18 10:00 06/28/18 09:31 Vitamin B-1 PO 100 mg QDAY ROCIO Administration Nutrition/Malnutrition Assess - Dietary Evaluation Nutrition/Malnutrition Findings: Nutrition Notes Start: 06/24/18 15:58 Freq: Status: Active Protocol: Document 06/28/18 10:00 CT (Rec: 06/28/18 10:16 CT [id number]) Co-Sign 06/28/18 10:00 LP Nutrition Notes Initial or Follow up Reassessment Current Diagnosis Hypertension Other Pertinent Diagnosis Diverticulitis, Abdominal pain , N/V/D Current Diet Clear liquid and PPN at 100mls /hr Labs/Tests Reviewed. Pertinent Medications Reviewed. Height 5 ft 10 in Weight 91.1 kg [place] Body Weight (kg) 75.45 BMI 28.8 Subjective/Other Information PPN day 4. Observed PPN not running. Pt stated he turned off machine because it was making noise. RN aware pt repeatedly turns off PPN. Pt also taking clear liquids and tolerating well. Percent of energy/protein needs met: 41%/100% Burn Absent Trauma Absent #1 Nutrition Diagnosis Inadequate oral intake Diagnosis Progress(for reassessment Continues documentation) Is patient on ventilator? No Is Patient Ambulatory and/or Out of Bed Yes REE-([facility]-ambulatory/OOB) [ 2336.425 NUTR.MSJOOB] Additional Notes Protein Needs: 74-92g (0.8-1g/ kg) Fluid Needs: 1 ml/kcal Nutrition Intervention Change Diet Order: Advance diet when medically able Nutrition Support: PPN at 100 ml/hr: lipids Kcal 1,449 Protein (gm) 92 Carbohydrates (gm) 171 Fat (gm) 50 Fluid (mL) 2,650 Fiber (gm) 0 Goal #1 PPN to meet calorie and protein needs as best possible Goal #2 Diet advancement Anticipated Discharge Needs: Unable to determine at this time Follow-Up By: 06/29/18 Additional Comments F/U: BMP, Mag, Phos, diet advancement
[2018-06-28] MEDS ORDERED: INTRALIPID 20% 250 ML IV SCH (20:00)
[2018-06-28] MEDS ORDERED: TPN ADULT 2,400 ML IV SCH (20:00)
[2018-06-29] MEDS: MORPHINE IV PRN ×4 (04:02→20:33)
[2018-06-29] MEDS: MAXIPIME/NS 2 GM/100 ML 2 GM/100 ML BAG IV SCH ×3 (05:44→21:57)
[2018-06-29] MEDS: FLAGYL 500 MG/100 ML 500 MG/100 ML BAG IV SCH ×3 (05:45→21:57)
[2018-06-29] MEDS: HEPARIN SUB-Q SCH ×3 (05:45→21:58)
[2018-06-29 09:07] LABS: BUN/Creatinine Ratio 15; Blood Urea Nitrogen 9 mg/dL (9-20); Calcium 9.1 mg/dL (8.4-10.2); Hemolysis Index 25
[2018-06-29] MEDS: PROTONIX PO SCH (09:32)
[2018-06-29] MEDS: VITAMIN B-1 PO SCH (09:32)
[2018-06-29] MEDS: HABITROL TD SCH (09:32)
--- NOTE | 2018-06-29 09:42 | Progress Note ---
Assessment and Plan Pt status quo. Abd soft, decreased tenderness stable continue present care f/u CT Sunday Selected Entries 06/28/18 06/29/18 04:49 05:11 Temperature 97.6 F 98.7 F Pulse Rate 74 69 Respiratory 16 20 Rate Blood Pressure 125/84 130/86 Objective Vital Signs - 12hr 06/28/18 06/28/18 06/28/18 21:45 22:00 22:10 Temperature 98.9 F Pulse Rate 60 Respiratory 20 20 Rate Respiratory 20 Rate [Abdomen] Blood Pressure 142/98 O2 Sat by Pulse 98 Oximetry 06/28/18 06/28/18 06/29/18 22:11 22:41 04:02 Temperature Pulse Rate Respiratory 20 20 20 Rate Respiratory Rate [Abdomen] Blood Pressure O2 Sat by Pulse Oximetry 06/29/18 06/29/18 04:32 05:11 Temperature 98.7 F Pulse Rate 69 Respiratory 20 20 Rate Respiratory Rate [Abdomen] Blood Pressure 130/86 O2 Sat by Pulse 98 Oximetry - Labs 06/27/18 05:51 06/29/18 07:13 Diabetes panel 06/29/18 Range/Units 07:13 Sodium 138 (137-145) mmol/L Potassium 3.9 (3.6-5.0) mmol/L Chloride 101.3 (98-107) mmol/L Carbon Dioxide 21 L (22-30) mmol/L BUN 9 (9-20) mg/dL Creatinine 0.6 L (0.8-1.5) mg/dL Glucose 90 (75-100) mg/dL Calcium 9.1 (8.4-10.2) mg/dL Calcium panel 06/29/18 Range/Units 07:13 Calcium 9.1 (8.4-10.2) mg/dL Phosphorus 3.60 (2.5-4.5) mg/dL Pituitary panel 06/29/18 Range/Units 07:13 Sodium 138 (137-145) mmol/L Potassium 3.9 (3.6-5.0) mmol/L Chloride 101.3 (98-107) mmol/L Carbon Dioxide 21 L (22-30) mmol/L BUN 9 (9-20) mg/dL Creatinine 0.6 L (0.8-1.5) mg/dL Glucose 90 (75-100) mg/dL Calcium 9.1 (8.4-10.2) mg/dL Adrenal panel 06/29/18 Range/Units 07:13 Sodium 138 (137-145) mmol/L Potassium 3.9 (3.6-5.0) mmol/L Chloride 101.3 (98-107) mmol/L Carbon Dioxide 21 L (22-30) mmol/L BUN 9 (9-20) mg/dL Creatinine 0.6 L (0.8-1.5) mg/dL Glucose 90 (75-100) mg/dL Calcium 9.1 (8.4-10.2) mg/dL
--- NOTE | 2018-06-29 11:33 | Progress Note ---
Assessment and Plan Assessment and plan: Patient is 48 yo man with a history of tobacco dependency who was admitted for acute diverticulitis, repeat CT abd/pelvis shows worsening diverticulitis with possible small abscess. Patient diet was downgraded by to NPO per Dr. Kern. Patient does not want surgery which was presented as an option. Although the repeat scan was worse yesterday, clinically he is doing better. -Acute complicated diverticulitis: On PPN, iv abx, GS, Dr. Kern is following Continue on clear liquids Surgical inputs noted and appreciated CT planned for sunday Patient currently refusing surgery -Sepsis due to the above Continue IV antibiotics -Tobacco dependency: child welfare counselor on stopping, pt verbalized understanding 15 mins of counselling provided -Alcohol abuse: watch from withdrawal, use Ciwa - DVT prophylaxis with heparin and GI Pepcid - Disposition if patient tolerates full liquids, would discontinue PPN discharge if okay with surgeon Counselling provided to the patient about leaving the floor to smoke again. Nicotine patch ordered and patient now agreeable after initial refusal a few days ago family at bedside encouraged patient to stop being non complaint. offered benedryl for itching of Nicotin patch. He understand the risk associated with smoking while on the patch History Interval history: Patient seen and examined, remains NPO and on TPN, no new complaints. Nursing staff reports patient still leaving the floor to go smoke, counselling provided Hospitalist Physical - Physical exam Narrative exam: Constitutional: Well-nourished well-developed. In no distress Head: Normocephalic atraumatic Eyes: Pupils are equal round and reactive to light Nose: No enlarged turbinates, no septal deviation. Mouth: Moist mucous membranes. Neck: Supple no thyromegaly. No bruit. No JVD Heart: Regular rate and rhythm, S1-S2 normal. No rubs murmurs or gallop Lungs: Clear to auscultation bilaterally. no rales or rhonchi Abdomen: Soft, tender llq. Bowel sound are present. Extremities: No edema, no cyanosis, no clubbing. Neuro: Alert oriented Oriented x3. No focal sensory or motor deficit. Skin: No rashes or hyperpigmented spots Musculoskeletal system: No joint pain or swelling Hematological: No petechia or subcutanous hemorrhages. Immunological: No multiple septic spots on the skin Lymphatic: No generalized lymphadenopathy Psychiatry: Euthymic. Calm. - Constitutional Vitals: Temp Pulse Resp BP Pulse Ox 98.7 F 69 20 130/86 98 06/29/18 05:11 06/29/18 05:11 06/29/18 05:11 06/29/18 05:11 06/29/18 05:11 Results - Labs CBC & Chem 7: 06/27/18 05:51 06/29/18 07:13 Labs: Laboratory Last Values WBC 7.4 K/mm3 (4.5-11.0) 06/27/18 05:51 RBC 4.19 M/mm3 (3.65-5.03) 06/27/18 05:51 Hgb 13.3 gm/dl (11.8-15.2) 06/27/18 05:51 Hct 37.6 % (35.5-45.6) 06/27/18 05:51 MCV 90 fl (84-94) 06/27/18 05:51 MCH 32 pg (28-32) 06/27/18 05:51 MCHC 36 % (32-34) H 06/27/18 05:51 RDW 13.7 % (13.2-15.2) 06/27/18 05:51 Plt Count 801 K/mm3 (140-440) H 06/27/18 05:51 Lymph % (Auto) 24.7 % (13.4-35.0) 06/27/18 05:51 [place] % (Auto) 9.1 % (0.0-7.3) H 06/27/18 05:51 Eos % (Auto) 3.8 % (0.0-4.3) 06/27/18 05:51 Baso % (Auto) 0.7 % (0.0-1.8) 06/27/18 05:51 Lymph # 1.8 K/mm3 (1.2-5.4) 06/27/18 05:51 [place] # 0.7 K/mm3 (0.0-0.8) 06/27/18 05:51 Eos # 0.3 K/mm3 (0.0-0.4) 06/27/18 05:51 Baso # 0.1 K/mm3 (0.0-0.1) 06/27/18 05:51 Seg Neutrophils % 61.7 % (40.0-70.0) 06/27/18 05:51 Seg Neutrophils # 4.5 K/mm3 (1.8-7.7) 06/27/18 05:51 Sodium 138 mmol/L (137-145) 06/29/18 07:13 Potassium 3.9 mmol/L (3.6-5.0) 06/29/18 07:13 Chloride 101.3 mmol/L (98-107) 06/29/18 07:13 Carbon Dioxide 21 mmol/L (22-30) L 06/29/18 07:13 Anion Gap 20 mmol/L 06/29/18 07:13 BUN 9 mg/dL (9-20) 06/29/18 07:13 Creatinine 0.6 mg/dL (0.8-1.5) L 06/29/18 07:13 Estimated GFR > 60 ml/min 06/29/18 07:13 BUN/Creatinine Ratio 15 % 06/29/18 07:13 Glucose 90 mg/dL (75-100) 06/29/18 07:13 POC Glucose 118 (70-105) H 06/29/18 05:16 Lactic Acid 1.60 mmol/L (0.7-2.0) 06/17/18 10:18 Calcium 9.1 mg/dL (8.4-10.2) 06/29/18 07:13 Phosphorus 3.60 mg/dL (2.5-4.5) 06/29/18 07:13 Magnesium 1.80 mg/dL (1.7-2.3) 06/29/18 07:13 Total Bilirubin 0.20 mg/dL (0.1-1.2) 06/24/18 06:42 Direct Bilirubin < 0.2 mg/dL (0-0.2) 06/17/18 07:34 Indirect Bilirubin 0.3 mg/dL 06/17/18 07:34 AST 18 units/L (5-40) 06/24/18 06:42 ALT 16 units/L (7-56) 06/24/18 06:42 Alkaline Phosphatase 58 units/L (35-129) 06/24/18 06:42 Total Creatine Kinase 356 units/L (55-170) H 06/17/18 07:34 CK-MB (CK-2) 2.3 ng/mL (0.0-4.0) 06/17/18 07:34 CK-MB (CK-2) Rel Index 0.6 (0-4) 06/17/18 07:34 Troponin T < 0.010 ng/mL (0.00-0.029) 06/17/18 07:34 NT-Pro-B Natriuret Pep 9.44 pg/mL (0-450) 06/17/18 07:34 Total Protein 7.0 g/dL (6.3-8.2) 06/24/18 06:42 Albumin 3.8 g/dL (3.9-5) L 06/24/18 06:42 Albumin/Globulin Ratio 1.2 % 06/24/18 06:42 Triglycerides 103 mg/dL (2-149) 06/26/18 07:01 Lipase 57 units/L (13-60) 06/17/18 07:34 Urine Color Yellow (Yellow) 06/17/18 10:00 Urine Turbidity Clear (Clear) 06/17/18 10:00 Urine pH 8.0 (5.0-7.0) H 06/17/18 10:00 Ur Specific [place] 1.034 (1.003-1.030) H 06/17/18 10:00 Urine Protein <15 mg/dl mg/dL (Negative) 06/17/18 10:00 Urine Glucose (UA) Neg mg/dL (Negative) 06/17/18 10:00 Urine Ketones Neg mg/dL (Negative) 06/17/18 10:00 Urine Blood Neg (Negative) 06/17/18 10:00 Urine Nitrite Neg (Negative) 06/17/18 10:00 Urine Bilirubin Neg (Negative) 06/17/18 10:00 Urine Urobilinogen < 2.0 mg/dL (<2.0) 06/17/18 10:00 Ur Leukocyte Esterase Neg (Negative) 06/17/18 10:00 Urine WBC (Auto) < 1.0 /HPF (0.0-6.0) 06/17/18 10:00 Urine RBC (Auto) < 1.0 /HPF (0.0-6.0) 06/17/18 10:00 Blood Type O POSITIVE 06/17/18 07:34 Antibody Screen Negative 06/17/18 07:34 Active Medications - Current Medications Current Medications: Generic Name Dose Route Start Last Admin Trade Name Freq PRN Reason Stop Dose Admin Clonidine HCl 0.2 mg 06/24/18 15:00 06/24/18 18:54 Catapres-Tts Patch TD 0.2 mg Mo ROCIO Administration Heparin Sodium (Porcine) 5,000 unit 06/19/18 14:00 06/29/18 05:45 Heparin SUB-Q 5,000 unit Q8HR ROCIO Administration Hydralazine HCl 10 mg 06/23/18 15:30 06/26/18 18:15 Apresoline IV 10 mg Q4HR PRN Administration SBP>160 or DBP>110 Metronidazole 500 mg in 100 mls @ 100 mls/hr 06/17/18 10:00 06/29/18 05:45 Flagyl 500 Mg/100 Ml IV 100 mls/hr Q8HR ROCIO Administration Protocol Cefepime HCl 2 gm in 100 mls @ 200 mls/hr 06/25/18 14:00 06/29/18 05:44 Maxipime/Ns 2 Gm/100 Ml IV 200 mls/hr Q8HR ROCIO Administration Protocol Amino Acids/Electrolytes/Dextrose 2,400 mls @ 100 mls/hr 06/28/18 20:00 06/28/18 20:27 Tpn Adult IV 06/29/18 19:59 100 mls/hr DAILY@2000 [facility] Administration Protocol Lorazepam 1 mg 06/18/18 03:29 06/20/18 00:23 Ativan IV 1 mg Q4H PRN Administration Alcohol Withdrawal Morphine Sulfate 2 mg 06/28/18 08:09 06/29/18 09:33 Morphine IV 2 mg Q4H PRN Administration Pain, Moderate (4-6) Nicotine 21 mg 06/28/18 12:00 06/29/18 09:32 Habitrol TD 21 mg QDAY ROCIO Administration Ondansetron HCl 4 mg 06/17/18 13:00 06/28/18 03:46 Zofran IV 4 mg Q8H PRN Administration N/V IF NPO AND NO IV ACCESS Pantoprazole Sodium 40 mg 06/25/18 10:00 06/29/18 09:32 Protonix PO 40 mg DAILY ROCIO Administration Thiamine HCl 100 mg 06/18/18 10:00 06/29/18 09:32 Vitamin B-1 PO 100 mg QDAY ROCIO Administration Nutrition/Malnutrition Assess - Dietary Evaluation Nutrition/Malnutrition Findings: Nutrition Notes Start: 06/24/18 15:58 Freq: Status: Active Protocol: Document 06/29/18 09:59 LP (Rec: 06/29/18 10:03 LP [id number]) Nutrition Notes Initial or Follow up Reassessment Current Diagnosis Hypertension Other Pertinent Diagnosis Diverticulitis, Abdominal pain , N/V/D Current Diet Popsicle and jello and PPN at 100mls/hr Labs/Tests Reviewed Pertinent Medications Reviewed Height 5 ft 10 in Weight 91.1 kg [place] Body Weight (kg) 75.45 BMI 28.8 Subjective/Other Information PPN day 5. Pt continues tolerating CL. Percent of energy/protein needs met: 62%/100% Burn Absent Trauma Absent #1 Nutrition Diagnosis Inadequate oral intake Diagnosis Progress(for reassessment Continues documentation) Is patient on ventilator? No Is Patient Ambulatory and/or Out of Bed Yes REE-([facility]-ambulatory/OOB) [ 2336.425 NUTR.MSJOOB] Calculation Used for Recommendations [facility] Additional Notes Protein Needs: 74-92g (0.8-1g/ kg) Fluid Needs: 1 ml/kcal Nutrition Intervention Change Diet Order: Advance diet when medically able Nutrition Support: PPN at 100ml/h: 14mmol phos Kcal 949 Protein (gm) 92 Carbohydrates (gm) 171 Fat (gm) 0 Fluid (mL) 2,400 Fiber (gm) 0 Goal #1 PPN to meet calorie and protein needs as best possible Goal #2 Diet advancement Anticipated Discharge Needs: Unable to determine at this time Follow-Up By: 06/30/18 Additional Comments Labs in AM: BMP, Phos
[2018-06-29] MEDS ORDERED: BENADRYL PO PRN (15:43)
[2018-06-29] MEDS ORDERED: TPN ADULT 2,400 ML IV SCH (20:00)
[2018-06-30] MEDS: MORPHINE IV PRN ×5 (00:18→21:51)
[2018-06-30] MEDS: FLAGYL 500 MG/100 ML 500 MG/100 ML BAG IV SCH ×3 (05:23→22:00)
[2018-06-30] MEDS: MAXIPIME/NS 2 GM/100 ML 2 GM/100 ML BAG IV SCH ×3 (05:24→22:02)
[2018-06-30] MEDS: HEPARIN SUB-Q SCH ×3 (05:24→22:01)
[2018-06-30] MEDS: APRESOLINE IV PRN (05:27)
[2018-06-30] MEDS: ZOFRAN IV PRN (05:40)
[2018-06-30 09:28] LABS: BUN/Creatinine Ratio 10; Blood Urea Nitrogen 8 mg/dL (9-20); Calcium 9.1 mg/dL (8.4-10.2); Hemolysis Index 4
[2018-06-30] MEDS: PROTONIX PO SCH (09:39)
[2018-06-30] MEDS: VITAMIN B-1 PO SCH (09:40)
[2018-06-30] MEDS: HABITROL TD SCH (09:40)
[2018-06-30] MEDS ORDERED: LASIX IV ONE (12:40)
--- NOTE | 2018-06-30 12:48 | Progress Note ---
Assessment and Plan Pt feeling well today. denies abd pain. c/o R forearm pain Abd soft, non tender R arm - cellulitis and induration proximal to IV site also tenderness over L hand IV site imp stable clinically resolving diverticulitis R forearm phlebitis elevate arm on pillow heating pad qid await am CT results Objective Vital Signs - 12hr 06/30/18 06/30/18 06/30/18 05:08 05:27 05:28 Temperature 98.9 F Pulse Rate 78 78 Respiratory 20 18 Rate Blood Pressure 160/105 160/105 Blood Pressure [Left] O2 Sat by Pulse 97 Oximetry 06/30/18 06/30/18 08:18 12:02 Temperature 99.0 F Pulse Rate 81 85 Respiratory 18 Rate Blood Pressure 111/86 Blood Pressure 132/91 [Left] O2 Sat by Pulse 96 Oximetry - Labs 06/27/18 05:51 06/30/18 08:03 Diabetes panel 06/30/18 Range/Units 08:03 Sodium 140 (137-145) mmol/L Potassium 4.0 (3.6-5.0) mmol/L Chloride 102.0 (98-107) mmol/L Carbon Dioxide 22 (22-30) mmol/L BUN 8 L (9-20) mg/dL Creatinine 0.8 (0.8-1.5) mg/dL Glucose 90 (75-100) mg/dL Calcium 9.1 (8.4-10.2) mg/dL Calcium panel 06/30/18 Range/Units 08:03 Calcium 9.1 (8.4-10.2) mg/dL Phosphorus 3.00 (2.5-4.5) mg/dL Pituitary panel 06/30/18 Range/Units 08:03 Sodium 140 (137-145) mmol/L Potassium 4.0 (3.6-5.0) mmol/L Chloride 102.0 (98-107) mmol/L Carbon Dioxide 22 (22-30) mmol/L BUN 8 L (9-20) mg/dL Creatinine 0.8 (0.8-1.5) mg/dL Glucose 90 (75-100) mg/dL Calcium 9.1 (8.4-10.2) mg/dL Adrenal panel 06/30/18 Range/Units 08:03 Sodium 140 (137-145) mmol/L Potassium 4.0 (3.6-5.0) mmol/L Chloride 102.0 (98-107) mmol/L Carbon Dioxide 22 (22-30) mmol/L BUN 8 L (9-20) mg/dL Creatinine 0.8 (0.8-1.5) mg/dL Glucose 90 (75-100) mg/dL Calcium 9.1 (8.4-10.2) mg/dL
[2018-06-30] MEDS ORDERED: LASIX PO NR (13:00)
[2018-06-30] MEDS ORDERED: LASIX PO ONE (13:01)
[2018-06-30] MEDS: TYLENOL PO PRN ×2 (13:41→22:09)
--- NOTE | 2018-06-30 13:48 | Progress Note ---
Assessment and Plan Assessment and plan: Patient is 48 yo man with a history of tobacco dependency who was admitted for acute diverticulitis, repeat CT abd/pelvis shows worsening diverticulitis with possible small abscess. Patient diet was downgraded by to NPO per Dr. Kern. Patient does not want surgery which was presented as an option. Although the repeat scan was worse yesterday, clinically he is doing better. -Acute complicated diverticulitis: On PPN, iv abx, GS, Dr. Kern is following Continue on clear liquids Surgical inputs noted and appreciated CT planned for tomorrow Patient currently refusing surgery Phlebitis: Warm compress. pt currently on antibiotics, elevate arm and change IV site -Sepsis due to the above Continue IV antibiotics -Tobacco dependency: children counselor on stopping, pt verbalized understanding 15 mins of counselling provided -Alcohol abuse: watch from withdrawal, use Ciwa - DVT prophylaxis with heparin and GI Pepcid -Disposition if patient tolerates full liquids, would discontinue PPN discharge if okay with surgeon History Interval history: Patient seen and examined, reports bilateral upper extremity pain with swelling. Mild erythema noted. No warmth noted. Hospitalist Physical - Physical exam Narrative exam: Constitutional: Well-nourished well-developed. In no distress Head: Normocephalic atraumatic Eyes: Pupils are equal round and reactive to light Nose: No enlarged turbinates, no septal deviation. Mouth: Moist mucous membranes. Neck: Supple no thyromegaly. No bruit. No JVD Heart: Regular rate and rhythm, S1-S2 normal. No rubs murmurs or gallop Lungs: Clear to auscultation bilaterally. no rales or rhonchi Abdomen: Soft, tender llq. Bowel sound are present. Extremities: Trace edema bilateral upper extremity with mild erythema but no warmth. No cyanosis, no clubbing. Neuro: Alert oriented Oriented x3. No focal sensory or motor deficit. Skin: No rashes or hyperpigmented spots Musculoskeletal system: No joint pain or swelling Hematological: No petechia or subcutanous hemorrhages. Immunological: No multiple septic spots on the skin Lymphatic: No generalized lymphadenopathy Psychiatry: Euthymic. Calm. - Constitutional Vitals: Temp Pulse Resp BP Pulse Ox 99.0 F 85 18 111/86 96 06/30/18 12:02 06/30/18 12:02 06/30/18 12:02 06/30/18 12:02 06/30/18 12:02 Results - Labs CBC & Chem 7: 06/27/18 05:51 06/30/18 08:03 Labs: Laboratory Last Values WBC 7.4 K/mm3 (4.5-11.0) 06/27/18 05:51 RBC 4.19 M/mm3 (3.65-5.03) 06/27/18 05:51 Hgb 13.3 gm/dl (11.8-15.2) 06/27/18 05:51 Hct 37.6 % (35.5-45.6) 06/27/18 05:51 MCV 90 fl (84-94) 06/27/18 05:51 MCH 32 pg (28-32) 06/27/18 05:51 MCHC 36 % (32-34) H 06/27/18 05:51 RDW 13.7 % (13.2-15.2) 06/27/18 05:51 Plt Count 801 K/mm3 (140-440) H 06/27/18 05:51 Lymph % (Auto) 24.7 % (13.4-35.0) 06/27/18 05:51 [place] % (Auto) 9.1 % (0.0-7.3) H 06/27/18 05:51 Eos % (Auto) 3.8 % (0.0-4.3) 06/27/18 05:51 Baso % (Auto) 0.7 % (0.0-1.8) 06/27/18 05:51 Lymph # 1.8 K/mm3 (1.2-5.4) 06/27/18 05:51 [place] # 0.7 K/mm3 (0.0-0.8) 06/27/18 05:51 Eos # 0.3 K/mm3 (0.0-0.4) 06/27/18 05:51 Baso # 0.1 K/mm3 (0.0-0.1) 06/27/18 05:51 Seg Neutrophils % 61.7 % (40.0-70.0) 06/27/18 05:51 Seg Neutrophils # 4.5 K/mm3 (1.8-7.7) 06/27/18 05:51 Sodium 140 mmol/L (137-145) 06/30/18 08:03 Potassium 4.0 mmol/L (3.6-5.0) 06/30/18 08:03 Chloride 102.0 mmol/L (98-107) 06/30/18 08:03 Carbon Dioxide 22 mmol/L (22-30) 06/30/18 08:03 Anion Gap 20 mmol/L 06/30/18 08:03 BUN 8 mg/dL (9-20) L 06/30/18 08:03 Creatinine 0.8 mg/dL (0.8-1.5) 06/30/18 08:03 Estimated GFR > 60 ml/min 06/30/18 08:03 BUN/Creatinine Ratio 10 % 06/30/18 08:03 Glucose 90 mg/dL (75-100) 06/30/18 08:03 POC Glucose 74 (70-105) 06/30/18 11:13 Lactic Acid 1.60 mmol/L (0.7-2.0) 06/17/18 10:18 Calcium 9.1 mg/dL (8.4-10.2) 06/30/18 08:03 Phosphorus 3.00 mg/dL (2.5-4.5) 06/30/18 08:03 Magnesium 1.80 mg/dL (1.7-2.3) 06/29/18 07:13 Total Bilirubin 0.20 mg/dL (0.1-1.2) 06/24/18 06:42 Direct Bilirubin < 0.2 mg/dL (0-0.2) 06/17/18 07:34 Indirect Bilirubin 0.3 mg/dL 06/17/18 07:34 AST 18 units/L (5-40) 06/24/18 06:42 ALT 16 units/L (7-56) 06/24/18 06:42 Alkaline Phosphatase 58 units/L (35-129) 06/24/18 06:42 Total Creatine Kinase 356 units/L (55-170) H 06/17/18 07:34 CK-MB (CK-2) 2.3 ng/mL (0.0-4.0) 06/17/18 07:34 CK-MB (CK-2) Rel Index 0.6 (0-4) 06/17/18 07:34 Troponin T < 0.010 ng/mL (0.00-0.029) 06/17/18 07:34 NT-Pro-B Natriuret Pep 9.44 pg/mL (0-450) 06/17/18 07:34 Total Protein 7.0 g/dL (6.3-8.2) 06/24/18 06:42 Albumin 3.8 g/dL (3.9-5) L 06/24/18 06:42 Albumin/Globulin Ratio 1.2 % 06/24/18 06:42 Triglycerides 103 mg/dL (2-149) 06/26/18 07:01 Lipase 57 units/L (13-60) 06/17/18 07:34 Urine Color Yellow (Yellow) 06/17/18 10:00 Urine Turbidity Clear (Clear) 06/17/18 10:00 Urine pH 8.0 (5.0-7.0) H 06/17/18 10:00 Ur Specific [place] 1.034 (1.003-1.030) H 06/17/18 10:00 Urine Protein <15 mg/dl mg/dL (Negative) 06/17/18 10:00 Urine Glucose (UA) Neg mg/dL (Negative) 06/17/18 10:00 Urine Ketones Neg mg/dL (Negative) 06/17/18 10:00 Urine Blood Neg (Negative) 06/17/18 10:00 Urine Nitrite Neg (Negative) 06/17/18 10:00 Urine Bilirubin Neg (Negative) 06/17/18 10:00 Urine Urobilinogen < 2.0 mg/dL (<2.0) 06/17/18 10:00 Ur Leukocyte Esterase Neg (Negative) 06/17/18 10:00 Urine WBC (Auto) < 1.0 /HPF (0.0-6.0) 06/17/18 10:00 Urine RBC (Auto) < 1.0 /HPF (0.0-6.0) 06/17/18 10:00 Blood Type O POSITIVE 06/17/18 07:34 Antibody Screen Negative 06/17/18 07:34 Active Medications - Current Medications Current Medications: Generic Name Dose Route Start Last Admin Trade Name Freq PRN Reason Stop Dose Admin Acetaminophen 650 mg 06/30/18 12:46 06/30/18 13:41 Tylenol PO 650 mg Q6H PRN Administration Pain, Mild (1-3) Clonidine HCl 0.2 mg 06/24/18 15:00 06/24/18 18:54 Catapres-Tts Patch TD 0.2 mg Mo ROCIO Administration Diphenhydramine HCl 25 mg 06/29/18 15:43 Benadryl PO Q8H PRN Itching Furosemide 40 mg 06/30/18 13:00 06/30/18 13:41 Lasix PO 06/30/18 19:00 40 mg ONCE NR Administration Heparin Sodium (Porcine) 5,000 unit 06/19/18 14:00 06/30/18 05:24 Heparin SUB-Q 5,000 unit Q8HR ROCIO Administration Hydralazine HCl 10 mg 06/23/18 15:30 06/30/18 05:27 Apresoline IV 10 mg Q4HR PRN Administration SBP>160 or DBP>110 Metronidazole 500 mg in 100 mls @ 100 mls/hr 06/17/18 10:00 06/30/18 13:41 Flagyl 500 Mg/100 Ml IV 100 mls/hr Q8HR ROCIO Administration Protocol Cefepime HCl 2 gm in 100 mls @ 200 mls/hr 06/25/18 14:00 06/30/18 05:24 Maxipime/Ns 2 Gm/100 Ml IV 200 mls/hr Q8HR ROCIO Administration Protocol Amino Acids/Electrolytes/Dextrose 2,400 mls @ 100 mls/hr 06/29/18 20:00 06/29/18 20:35 Tpn Adult IV 06/30/18 19:59 100 mls/hr DAILY@2000 ROCIO Administration Protocol Lorazepam 1 mg 06/18/18 03:29 06/20/18 00:23 Ativan IV 1 mg Q4H PRN Administration Alcohol Withdrawal Morphine Sulfate 2 mg 06/28/18 08:09 06/30/18 13:41 Morphine IV 2 mg Q4H PRN Administration Pain, Moderate (4-6) Nicotine 21 mg 06/28/18 12:00 06/30/18 09:40 Habitrol TD 21 mg QDAY ROCIO Administration Ondansetron HCl 4 mg 06/17/18 13:00 06/30/18 05:40 Zofran IV 4 mg Q8H PRN Administration N/V IF NPO AND NO IV ACCESS Pantoprazole Sodium 40 mg 06/25/18 10:00 06/30/18 09:39 Protonix PO 40 mg DAILY ROCIO Administration Thiamine HCl 100 mg 06/18/18 10:00 06/30/18 09:40 Vitamin B-1 PO 100 mg QDAY ROCIO Administration Nutrition/Malnutrition Assess - Dietary Evaluation Nutrition/Malnutrition Findings: Nutrition Notes Start: 06/24/18 15:58 Freq: Status: Active Protocol: Document 06/30/18 10:31 LP (Rec: 06/30/18 10:34 LP [id number]) Nutrition Notes Initial or Follow up Reassessment Current Diagnosis Hypertension Other Pertinent Diagnosis Diverticulitis, Abdominal pain , N/V/D Current Diet Popsicle and jello and PPN at 100mls/hr Labs/Tests Reviewed Pertinent Medications Reviewed Height 5 ft 10 in Weight 91.1 kg [place] Body Weight (kg) 75.45 BMI 28.8 Subjective/Other Information PPN day 6. CT Sunday. Percent of energy/protein needs met: 40%/100% Burn Absent Trauma Absent #1 Nutrition Diagnosis Inadequate oral intake Diagnosis Progress(for reassessment Continues documentation) Is patient on ventilator? No Is Patient Ambulatory and/or Out of Bed Yes REE-([facility]-ambulatory/OOB) [ 2336.425 NUTR.MSJOOB] Calculation Used for Recommendations [facility] Additional Notes Protein Needs: 74-92g (0.8-1g/ kg) Fluid Needs: 1 ml/kcal Nutrition Intervention Change Diet Order: Advance diet when medically able Nutrition Support: PPN at 100ml/h: 22mmol phos, MVI Kcal 949 Protein (gm) 92 Carbohydrates (gm) 171 Fat (gm) 0 Fluid (mL) 2,400 Fiber (gm) 0 Goal #1 PPN to meet calorie and protein needs as best possible Goal #2 Diet advancement Anticipated Discharge Needs: Unable to determine at this time Follow-Up By: 07/01/18 Additional Comments Labs in AM: BMP, Phos
[2018-06-30] MEDS ORDERED: TPN ADULT 2,400 ML IV SCH (20:00)
[2018-07-01] MEDS: MORPHINE IV PRN ×4 (05:22→20:28)
[2018-07-01] MEDS: HEPARIN SUB-Q SCH ×3 (05:30→21:07)
[2018-07-01] MEDS: FLAGYL 500 MG/100 ML 500 MG/100 ML BAG IV SCH ×3 (06:43→21:40)
[2018-07-01] MEDS: MAXIPIME/NS 2 GM/100 ML 2 GM/100 ML BAG IV SCH ×3 (06:44→21:08)
[2018-07-01 07:23] LABS: BUN/Creatinine Ratio 14; Blood Urea Nitrogen 11 mg/dL (9-20); Calcium 9.5 mg/dL (8.4-10.2); Hemolysis Index 0
[2018-07-01] MEDS: ZOFRAN IV PRN ×2 (08:44→20:29)
[2018-07-01] MEDS: VITAMIN B-1 PO SCH (10:00)
[2018-07-01] MEDS: PROTONIX PO SCH (10:00)
[2018-07-01] MEDS: HABITROL TD SCH (10:00)
--- NOTE | 2018-07-01 11:32 | Progress Note ---
Assessment and Plan Cultures: 06/17/2018 blood culture: No growth 06/17/2018 urine culture: No growth 06/18/2018 MRSA PCR: negative A/P: 48-year-old male with history of diverticulosis admitted with: 1) Sepsis Resolved, secondary to acute descending colon diverticulitis: CT without any evidence of perforation or abscess. Gen Surg following. On conservative management. nausea and cramping with clear liquid. Repeat CT today shows 50-75% improvement in the descending colon diverticulitis. When patient is tolerating diet will switch to PO. 2) Significant tobacco abuse: Smoking cessation advised. 3) Alcohol abuse: Monitor for withdrawal. Recs: Continue Cefepime 2gms IV every 8 hours, D8 Continue Flagyl 500mg IV every 8 hours, D15 Once tolerating PO, Anticipate discharge on Augmentin 875 mg PO BID for 7 days [facility] M: [phone] O:[phone] Subjective Date of service: 07/01/18 Principal diagnosis: diverticulitis, sepsis, alcohol abuse. Interval history: Patient seen and examined. Left flank pain improved. No acute distress. Continues to tolerated clears. Objective - Exam Narrative Exam: Constitutional: Alert, cooperative. no acute distress Head, Ears, Nose: Normocephalic, atraumatic. External ears, nose normal Eyes: Conjunctivae/corneas clear. No icterus. No ptosis. Neck: Supple, no meningeal signs Oral: dentition fair, multiple fillings, no thrush Cardiovascular: S1, S2 normal. Respiratory: Good air entry, clear to auscultation bilaterally GI: Soft, left side pain and tenderness- improved. bowel sounds + Musculoskeletal: No pedal edema, no cyanosis. Skin: No rash or abscess Hem/Lymphatic: No palpable cervical or supraclavicular nodes. No lymphangitis Psych: Mood ok. Affect normal Neurological: Awake, alert, oriented. No gross abnormality - Constitutional Vitals: Vital Signs Temp Pulse Resp BP Pulse Ox 98.4 F 86 20 135/102 99 07/01/18 05:24 07/01/18 05:24 07/01/18 08:44 07/01/18 05:24 07/01/18 05:24 Temperature -Last 24 Hours Temperature 98.4 F Temperature 98.5 F Temperature 98.3 F Temperature 99.0 F - Labs CBC & Chem 7: 06/27/18 05:51 07/01/18 05:43 Labs: Abnormal lab results 06/30/18 Range/Units 20:38 POC Glucose 114 H (70-105)
--- NOTE | 2018-07-01 13:44 | Progress Note ---
Assessment and Plan Pt feeling better though did have some "cramps" with po contrast Abd soft, non tender reviewed CT with radiologist. descending colon inflammation around 50% -60% better. improving diverticulitis attempt cl liq diet no carbonated Selected Entries 06/30/18 07/01/18 07/01/18 12:02 05:24 10:00 Temperature 99.0 F 98.4 F Pulse Rate 85 86 Respiratory 18 20 Rate Blood Pressure 111/86 135/102 Objective Vital Signs - 12hr 07/01/18 07/01/18 07/01/18 05:24 08:44 10:00 Temperature 98.4 F Pulse Rate 86 Respiratory 20 20 20 Rate Blood Pressure 135/102 O2 Sat by Pulse 99 Oximetry 07/01/18 13:36 Temperature Pulse Rate Respiratory 20 Rate Blood Pressure O2 Sat by Pulse Oximetry - Labs 06/27/18 05:51 07/01/18 05:43 Diabetes panel 07/01/18 Range/Units 05:43 Sodium 140 (137-145) mmol/L Potassium 4.0 (3.6-5.0) mmol/L Chloride 100.3 (98-107) mmol/L Carbon Dioxide 25 (22-30) mmol/L BUN 11 (9-20) mg/dL Creatinine 0.8 (0.8-1.5) mg/dL Glucose 81 (75-100) mg/dL Calcium 9.5 (8.4-10.2) mg/dL Calcium panel 07/01/18 Range/Units 05:43 Calcium 9.5 (8.4-10.2) mg/dL Phosphorus 3.70 D (2.5-4.5) mg/dL Pituitary panel 07/01/18 Range/Units 05:43 Sodium 140 (137-145) mmol/L Potassium 4.0 (3.6-5.0) mmol/L Chloride 100.3 (98-107) mmol/L Carbon Dioxide 25 (22-30) mmol/L BUN 11 (9-20) mg/dL Creatinine 0.8 (0.8-1.5) mg/dL Glucose 81 (75-100) mg/dL Calcium 9.5 (8.4-10.2) mg/dL Adrenal panel 07/01/18 Range/Units 05:43 Sodium 140 (137-145) mmol/L Potassium 4.0 (3.6-5.0) mmol/L Chloride 100.3 (98-107) mmol/L Carbon Dioxide 25 (22-30) mmol/L BUN 11 (9-20) mg/dL Creatinine 0.8 (0.8-1.5) mg/dL Glucose 81 (75-100) mg/dL Calcium 9.5 (8.4-10.2) mg/dL
--- NOTE | 2018-07-01 14:47 | Progress Note ---
Assessment and Plan Assessment and plan: Patient is 48 yo man with a history of tobacco dependency who was admitted for acute diverticulitis, repeat CT abd/pelvis shows worsening diverticulitis with possible small abscess. Patient diet was downgraded by to NPO per Dr. Kern. Patient does not want surgery which was presented as an option. Although the repeat scan was worse yesterday, clinically he is doing better. -Acute complicated diverticulitis: On PPN, iv abx, GS, Dr. Kern is following Continue on clear liquids Surgical inputs noted and appreciated Based on review of CT "descending colon inflammation around 50% -60% better." per surgery Will start on clear liquids with no carbonated drink Patient currently refusing surgery Phlebitis: RESOLVED. TREATED WITH Warm compress. pt currently on antibiotics, elevate arm and change IV site -Sepsis due to the above Continue IV antibiotics -Tobacco dependency: counselor marriage and family on stopping, pt verbalized understanding 15 mins of counselling provided -Alcohol abuse: watch from withdrawal, use Ciwa - DVT prophylaxis with heparin and GI Pepcid -Disposition if patient tolerates full liquids, would discontinue PPN discharge if okay with surgeon ANTICIPATE DISCHARGE IN 24-48HRS IF TOLERATING DIET History Interval history: Patient seen and examined, "i am feeling like new" no new complaints. Hospitalist Physical - Physical exam Narrative exam: Constitutional: Well-nourished well-developed. In no distress Head: Normocephalic atraumatic Eyes: Pupils are equal round and reactive to light Nose: No enlarged turbinates, no septal deviation. Mouth: Moist mucous membranes. Neck: Supple no thyromegaly. No bruit. No JVD Heart: Regular rate and rhythm, S1-S2 normal. No rubs murmurs or gallop Lungs: Clear to auscultation bilaterally. no rales or rhonchi Abdomen: Soft,non tender. Bowel sound are present. Extremities: no edema no warmth. No cyanosis, no clubbing. Neuro: Alert oriented Oriented x3. No focal sensory or motor deficit. Skin: No rashes or hyperpigmented spots Musculoskeletal system: No joint pain or swelling Hematological: No petechia or subcutanous hemorrhages. Immunological: No multiple septic spots on the skin Lymphatic: No generalized lymphadenopathy Psychiatry: Euthymic. Calm. - Constitutional Vitals: Temp Pulse Resp BP Pulse Ox 98.4 F 86 20 135/102 99 07/01/18 05:24 07/01/18 05:24 07/01/18 13:36 07/01/18 05:24 07/01/18 05:24 Results - Labs CBC & Chem 7: 06/27/18 05:51 07/01/18 05:43 Labs: Laboratory Last Values WBC 7.4 K/mm3 (4.5-11.0) 06/27/18 05:51 RBC 4.19 M/mm3 (3.65-5.03) 06/27/18 05:51 Hgb 13.3 gm/dl (11.8-15.2) 06/27/18 05:51 Hct 37.6 % (35.5-45.6) 06/27/18 05:51 MCV 90 fl (84-94) 06/27/18 05:51 MCH 32 pg (28-32) 06/27/18 05:51 MCHC 36 % (32-34) H 06/27/18 05:51 RDW 13.7 % (13.2-15.2) 06/27/18 05:51 Plt Count 801 K/mm3 (140-440) H 06/27/18 05:51 Lymph % (Auto) 24.7 % (13.4-35.0) 06/27/18 05:51 [place] % (Auto) 9.1 % (0.0-7.3) H 06/27/18 05:51 Eos % (Auto) 3.8 % (0.0-4.3) 06/27/18 05:51 Baso % (Auto) 0.7 % (0.0-1.8) 06/27/18 05:51 Lymph # 1.8 K/mm3 (1.2-5.4) 06/27/18 05:51 [place] # 0.7 K/mm3 (0.0-0.8) 06/27/18 05:51 Eos # 0.3 K/mm3 (0.0-0.4) 06/27/18 05:51 Baso # 0.1 K/mm3 (0.0-0.1) 06/27/18 05:51 Seg Neutrophils % 61.7 % (40.0-70.0) 06/27/18 05:51 Seg Neutrophils # 4.5 K/mm3 (1.8-7.7) 06/27/18 05:51 Sodium 140 mmol/L (137-145) 07/01/18 05:43 Potassium 4.0 mmol/L (3.6-5.0) 07/01/18 05:43 Chloride 100.3 mmol/L (98-107) 07/01/18 05:43 Carbon Dioxide 25 mmol/L (22-30) 07/01/18 05:43 Anion Gap 19 mmol/L 07/01/18 05:43 BUN 11 mg/dL (9-20) 07/01/18 05:43 Creatinine 0.8 mg/dL (0.8-1.5) 07/01/18 05:43 Estimated GFR > 60 ml/min 07/01/18 05:43 BUN/Creatinine Ratio 14 % 07/01/18 05:43 Glucose 81 mg/dL (75-100) 07/01/18 05:43 POC Glucose 82 (70-105) 07/01/18 11:59 Lactic Acid 1.60 mmol/L (0.7-2.0) 06/17/18 10:18 Calcium 9.5 mg/dL (8.4-10.2) 07/01/18 05:43 Phosphorus 3.70 mg/dL (2.5-4.5) D 07/01/18 05:43 Magnesium 1.80 mg/dL (1.7-2.3) 06/29/18 07:13 Total Bilirubin 0.20 mg/dL (0.1-1.2) 06/24/18 06:42 Direct Bilirubin < 0.2 mg/dL (0-0.2) 06/17/18 07:34 Indirect Bilirubin 0.3 mg/dL 06/17/18 07:34 AST 18 units/L (5-40) 06/24/18 06:42 ALT 16 units/L (7-56) 06/24/18 06:42 Alkaline Phosphatase 58 units/L (35-129) 06/24/18 06:42 Total Creatine Kinase 356 units/L (55-170) H 06/17/18 07:34 CK-MB (CK-2) 2.3 ng/mL (0.0-4.0) 06/17/18 07:34 CK-MB (CK-2) Rel Index 0.6 (0-4) 06/17/18 07:34 Troponin T < 0.010 ng/mL (0.00-0.029) 06/17/18 07:34 NT-Pro-B Natriuret Pep 9.44 pg/mL (0-450) 06/17/18 07:34 Total Protein 7.0 g/dL (6.3-8.2) 06/24/18 06:42 Albumin 3.8 g/dL (3.9-5) L 06/24/18 06:42 Albumin/Globulin Ratio 1.2 % 06/24/18 06:42 Triglycerides 103 mg/dL (2-149) 06/26/18 07:01 Lipase 57 units/L (13-60) 06/17/18 07:34 Urine Color Yellow (Yellow) 06/17/18 10:00 Urine Turbidity Clear (Clear) 06/17/18 10:00 Urine pH 8.0 (5.0-7.0) H 06/17/18 10:00 Ur Specific [place] 1.034 (1.003-1.030) H 06/17/18 10:00 Urine Protein <15 mg/dl mg/dL (Negative) 06/17/18 10:00 Urine Glucose (UA) Neg mg/dL (Negative) 06/17/18 10:00 Urine Ketones Neg mg/dL (Negative) 06/17/18 10:00 Urine Blood Neg (Negative) 06/17/18 10:00 Urine Nitrite Neg (Negative) 06/17/18 10:00 Urine Bilirubin Neg (Negative) 06/17/18 10:00 Urine Urobilinogen < 2.0 mg/dL (<2.0) 06/17/18 10:00 Ur Leukocyte Esterase Neg (Negative) 06/17/18 10:00 Urine WBC (Auto) < 1.0 /HPF (0.0-6.0) 06/17/18 10:00 Urine RBC (Auto) < 1.0 /HPF (0.0-6.0) 06/17/18 10:00 Blood Type O POSITIVE 06/17/18 07:34 Antibody Screen Negative 06/17/18 07:34 Active Medications - Current Medications Current Medications: Generic Name Dose Route Start Last Admin Trade Name Freq PRN Reason Stop Dose Admin Acetaminophen 650 mg 06/30/18 12:46 06/30/18 22:09 Tylenol PO 650 mg Q6H PRN Administration Pain, Mild (1-3) Clonidine HCl 0.2 mg 06/24/18 15:00 06/24/18 18:54 Catapres-Tts Patch TD 0.2 mg Mo ROCIO Administration Diphenhydramine HCl 25 mg 06/29/18 15:43 Benadryl PO Q8H PRN Itching Heparin Sodium (Porcine) 5,000 unit 06/19/18 14:00 07/01/18 05:30 Heparin SUB-Q 5,000 unit Q8HR ROCIO Administration Hydralazine HCl 10 mg 06/23/18 15:30 06/30/18 05:27 Apresoline IV 10 mg Q4HR PRN Administration SBP>160 or DBP>110 Metronidazole 500 mg in 100 mls @ 100 mls/hr 06/17/18 10:00 07/01/18 13:37 Flagyl 500 Mg/100 Ml IV 100 mls/hr Q8HR REPLACED BY [facility] Administration Protocol Amino Acids/Electrolytes/Dextrose 2,400 mls @ 100 mls/hr 06/30/18 20:00 06/30/18 21:03 Tpn Adult IV 07/01/18 19:59 100 mls/hr DAILY@1999 REPLACED BY [facility] Administration Protocol Cefepime HCl 2 gm in 100 mls @ 200 mls/hr 06/30/18 22:00 07/01/18 13:37 Maxipime/Ns 2 Gm/100 Ml IV 200 mls/hr Q8HR REPLACED BY [facility] Administration Protocol Amino Acids/Electrolytes/Dextrose 2,400 mls @ 100 mls/hr 07/01/18 20:00 Tpn Adult IV 07/02/18 19:59 DAILY@1999 REPLACED BY [facility] Protocol Lorazepam 1 mg 06/18/18 03:29 06/20/18 00:23 Ativan IV 1 mg Q4H PRN Administration Alcohol Withdrawal Morphine Sulfate 2 mg 06/28/18 08:09 07/01/18 13:36 Morphine IV 2 mg Q4H PRN Administration Pain, Moderate (4-6) Nicotine 21 mg 06/28/18 12:00 07/01/18 10:00 Habitrol TD Not Given QDAY REPLACED BY [facility] Ondansetron HCl 4 mg 06/17/18 13:00 07/01/18 08:44 Zofran IV 4 mg Q8H PRN Administration N/V IF NPO AND NO IV ACCESS Pantoprazole Sodium 40 mg 06/25/18 10:00 07/01/18 10:00 Protonix PO Not Given DAILY REPLACED BY [facility] Thiamine HCl 100 mg 06/18/18 10:00 07/01/18 10:00 Vitamin B-1 PO Not Given QDAY REPLACED BY [facility] Nutrition/Malnutrition Assess - Dietary Evaluation Nutrition/Malnutrition Findings: Nutrition Notes Start: 06/24/18 15:58 Freq: Status: Active Protocol: Document 06/30/18 10:31 LP (Rec: 06/30/18 10:34 LP [id number]) Nutrition Notes Initial or Follow up Reassessment Current Diagnosis Hypertension Other Pertinent Diagnosis Diverticulitis, Abdominal pain , N/V/D Current Diet Popsicle and jello and PPN at 100mls/hr Labs/Tests Reviewed Pertinent Medications Reviewed Height 5 ft 10 in Weight 91.1 kg [place] Body Weight (kg) 75.45 BMI 28.8 Subjective/Other Information PPN day . CT Sunday. Percent of energy/protein needs met: 40%/100% Burn Absent Trauma Absent #1 Nutrition Diagnosis Inadequate oral intake Diagnosis Progress(for reassessment Continues documentation) Is patient on ventilator? No Is Patient Ambulatory and/or Out of Bed Yes REE-([facility]-ambulatory/OOB) [ 2336.425 NUTR.MSJOOB] Calculation Used for Recommendations [facility] Additional Notes Protein Needs: 74-92g (0.8-1g/ kg) Fluid Needs: 1 ml/kcal Nutrition Intervention Change Diet Order: Advance diet when medically able Nutrition Support: PPN at 100ml/h: 22mmol phos, MVI Kcal 949 Protein (gm) 92 Carbohydrates (gm) 171 Fat (gm) 0 Fluid (mL) 2,400 Fiber (gm) 0 Goal #1 PPN to meet calorie and protein needs as best possible Goal #2 Diet advancement Anticipated Discharge Needs: Unable to determine at this time Follow-Up By: 07/01/18 Additional Comments Labs in AM: BMP, Phos
--- NOTE | 2018-07-01 14:57 | Cat Scan Report ---
CT ABDOMEN PELVIS WITH CONTRAST: HISTORY: Followup diverticulitis. COMPARISON: none. TECHNIQUE: Helical CT in 1.25mm intervals following IV contrast. Sagittal and coronal reconstructions. FINDINGS: Focal inflammation in the descending colon consistent with diverticulitis has decreased by 50-75% since 06/24/18 exam. A small fluid collection anterior to this area has decreased in size by 50% and now measures 6 x 15 mm. No new areas of inflammation have developed in the abdomen. Diverticulosis of the colon is unchanged. The remaining bowel loops are unremarkable. The liver, biliary system, pancreas, adrenal glands, aorta and bladder are unremarkable. Scattered renal cysts are unchanged in size and number. The kidneys and collecting systems are unremarkable otherwise. Borderline to mild cardiomegaly is stable. Trace pleural effusions have developed. IMPRESSION: 50-75% improvement in the descending colon diverticulitis as described. These findings were discussed with Dr. Ferro at 1330 hrs.
[2018-07-01] MEDS: CATAPRES-TTS PATCH TD SCH (15:00)
[2018-07-01] MEDS ORDERED: TPN ADULT 2,400 ML IV SCH (20:00)
[2018-07-01] MEDS: TYLENOL PO PRN (21:06)
[2018-07-02] MEDS: MORPHINE IV PRN ×5 (01:20→21:17)
[2018-07-02] MEDS: MAXIPIME/NS 2 GM/100 ML 2 GM/100 ML BAG IV SCH ×3 (05:23→22:23)
[2018-07-02] MEDS: FLAGYL 500 MG/100 ML 500 MG/100 ML BAG IV SCH ×3 (06:15→21:27)
[2018-07-02] MEDS: HEPARIN SUB-Q SCH ×3 (06:16→21:31)
[2018-07-02] MEDS: TYLENOL PO PRN ×2 (06:37→22:25)
[2018-07-02 08:14] LABS: Alanine Aminotransferase 12 units/L (7-56); Albumin 3.9 g/dL (3.9-5); BUN/Creatinine Ratio 11; Blood Urea Nitrogen 9 mg/dL (9-20); Calcium 9.3 mg/dL (8.4-10.2); Hemolysis Index 5
[2018-07-02] MEDS: HABITROL TD SCH (09:32)
[2018-07-02] MEDS: ZOFRAN IV PRN (09:33)
[2018-07-02] MEDS: VITAMIN B-1 PO SCH (09:33)
[2018-07-02] MEDS: PROTONIX PO SCH (09:33)
--- NOTE | 2018-07-02 10:36 | Progress Note ---
Assessment and Plan Cultures: 06/17/2018 blood culture: No growth 06/17/2018 urine culture: No growth 06/18/2018 MRSA PCR: negative A/P: 48-year-old male with history of diverticulosis admitted with: 1) Sepsis Resolved, secondary to acute descending colon diverticulitis: CT without any evidence of perforation or abscess. Gen Surg following. On conservative management. nausea and cramping with clear liquid. Repeat CT 07/01/18 shows 50-75% improvement in the descending colon diverticulitis. Plan to resume high fiber solid diet tomorrow. Will f/u with GI as outpatient for colono scopy. Once tolerating PO, Anticipate discharge on Augmentin 875 mg PO BID for 7 days 2) Significant tobacco abuse: Smoking cessation advised. 3) Alcohol abuse: Monitor for withdrawal. Recs: Continue Cefepime 2gms IV every 8 hours, D9 Continue Flagyl 500mg IV every 8 hours, D16 Once tolerating PO, Anticipate discharge on Augmentin 875 mg PO BID for 7 days CBC ordered for tomorrow [facility] M: [phone] O:[phone] Subjective Date of service: 07/02/18 Principal diagnosis: diverticulitis, sepsis, alcohol abuse. Interval history: Patient seen and examined. Left flank pain improved. No acute distress. Continues to tolerated clears. Objective - Exam Narrative Exam: Constitutional: Alert, cooperative. no acute distress Head, Ears, Nose: Normocephalic, atraumatic. External ears, nose normal Eyes: Conjunctivae/corneas clear. No icterus. No ptosis. Neck: Supple, no meningeal signs Oral: dentition fair, multiple fillings, no thrush Cardiovascular: S1, S2 normal. Respiratory: Good air entry, clear to auscultation bilaterally GI: Soft, left side pain and tenderness- improved. bowel sounds + Musculoskeletal: No pedal edema, no cyanosis. Skin: No rash or abscess Hem/Lymphatic: No palpable cervical or supraclavicular nodes. No lymphangitis Psych: Mood ok. Affect normal Neurological: Awake, alert, oriented. No gross abnormality - Constitutional Vitals: Vital Signs Temp Pulse Resp BP Pulse Ox 98.5 F 75 18 130/82 95 07/01/18 23:30 07/01/18 23:30 07/02/18 09:04 07/01/18 23:30 07/01/18 23:30 Temperature -Last 24 Hours Temperature 98.5 F Temperature 98.5 F Temperature 98.5 F Temperature 98.5 F - Labs CBC & Chem 7: 06/27/18 05:51 07/02/18 06:38
--- NOTE | 2018-07-02 12:23 | Progress Note ---
Assessment and Plan Assessment and plan: Patient is 48 yo man with a history of tobacco dependency who was admitted for acute diverticulitis, repeat CT abd/pelvis shows worsening diverticulitis with possible small abscess. Patient diet was downgraded by to NPO per Dr. Kern. Patient does not want surgery which was presented as an option. Although the repeat scan was worse yesterday, clinically he is doing better. -Acute complicated diverticulitis: On PPN, iv abx, GS, Dr. Kern is following Continue on clear liquids Surgical inputs noted and appreciated Based on review of CT "descending colon inflammation around 50% -60% better." per surgery Will start on clear liquids with no carbonated drink Patient currently refusing surgery Clear liquid COLONSOCOPY OUTPATIENT WANTS PAIN MEDS ON DISCHARGE AND ALSO BP MEDS FEW DAYS OF ORAL ANTIBIOTICS Phlebitis: RESOLVED. TREATED WITH Warm compress. pt currently on antibiotics, elevate arm and change IV site -Sepsis due to the above Continue IV antibiotics -Tobacco dependency: eligibility counselor on stopping, pt verbalized understanding 15 mins of counselling provided -Alcohol abuse: watch from withdrawal, use Ciwa - DVT prophylaxis with heparin and GI Pepcid -Disposition if patient tolerates full liquids, would discontinue PPN discharge if okay with surgeon ANTICIPATE DISCHARGE IN 24-48HRS IF TOLERATING DIET History Interval history: Patient seen and examined, "i am feeling like new" no new complaints. Hospitalist Physical - Physical exam Narrative exam: Constitutional: Well-nourished well-developed. In no distress Head: Normocephalic atraumatic Eyes: Pupils are equal round and reactive to light Nose: No enlarged turbinates, no septal deviation. Mouth: Moist mucous membranes. Neck: Supple no thyromegaly. No bruit. No JVD Heart: Regular rate and rhythm, S1-S2 normal. No rubs murmurs or gallop Lungs: Clear to auscultation bilaterally. no rales or rhonchi Abdomen: Soft,non tender. Bowel sound are present. Extremities: no edema no warmth. No cyanosis, no clubbing. Neuro: Alert oriented Oriented x3. No focal sensory or motor deficit. Skin: No rashes or hyperpigmented spots Musculoskeletal system: No joint pain or swelling Hematological: No petechia or subcutanous hemorrhages. Immunological: No multiple septic spots on the skin Lymphatic: No generalized lymphadenopathy Psychiatry: Euthymic. Calm. - Constitutional Vitals: Temp Pulse Resp BP Pulse Ox 98.5 F 75 18 130/82 95 07/01/18 23:30 07/01/18 23:30 07/02/18 09:04 07/01/18 23:30 07/01/18 23:30 Results - Labs CBC & Chem 7: 07/03/18 01:09 07/03/18 05:47 Labs: Laboratory Last Values WBC 7.4 K/mm3 (4.5-11.0) 06/27/18 05:51 RBC 4.19 M/mm3 (3.65-5.03) 06/27/18 05:51 Hgb 13.3 gm/dl (11.8-15.2) 06/27/18 05:51 Hct 37.6 % (35.5-45.6) 06/27/18 05:51 MCV 90 fl (84-94) 06/27/18 05:51 MCH 32 pg (28-32) 06/27/18 05:51 MCHC 36 % (32-34) H 06/27/18 05:51 RDW 13.7 % (13.2-15.2) 06/27/18 05:51 Plt Count 801 K/mm3 (140-440) H 06/27/18 05:51 Lymph % (Auto) 24.7 % (13.4-35.0) 06/27/18 05:51 [place] % (Auto) 9.1 % (0.0-7.3) H 06/27/18 05:51 Eos % (Auto) 3.8 % (0.0-4.3) 06/27/18 05:51 Baso % (Auto) 0.7 % (0.0-1.8) 06/27/18 05:51 Lymph # 1.8 K/mm3 (1.2-5.4) 06/27/18 05:51 [place] # 0.7 K/mm3 (0.0-0.8) 06/27/18 05:51 Eos # 0.3 K/mm3 (0.0-0.4) 06/27/18 05:51 Baso # 0.1 K/mm3 (0.0-0.1) 06/27/18 05:51 Seg Neutrophils % 61.7 % (40.0-70.0) 06/27/18 05:51 Seg Neutrophils # 4.5 K/mm3 (1.8-7.7) 06/27/18 05:51 Sodium 140 mmol/L (137-145) 07/02/18 06:38 Potassium 4.4 mmol/L (3.6-5.0) 07/02/18 06:38 Chloride 101.4 mmol/L (98-107) 07/02/18 06:38 Carbon Dioxide 26 mmol/L (22-30) 07/02/18 06:38 Anion Gap 17 mmol/L 07/02/18 06:38 BUN 9 mg/dL (9-20) 07/02/18 06:38 Creatinine 0.8 mg/dL (0.8-1.5) 07/02/18 06:38 Estimated GFR > 60 ml/min 07/02/18 06:38 BUN/Creatinine Ratio 11 % 07/02/18 06:38 Glucose 84 mg/dL (75-100) 07/02/18 06:38 POC Glucose 82 (70-105) 07/02/18 11:55 Lactic Acid 1.60 mmol/L (0.7-2.0) 06/17/18 10:18 Calcium 9.3 mg/dL (8.4-10.2) 07/02/18 06:38 Phosphorus 3.70 mg/dL (2.5-4.5) 07/02/18 06:38 Magnesium 1.90 mg/dL (1.7-2.3) 07/02/18 06:38 Total Bilirubin 0.20 mg/dL (0.1-1.2) 07/02/18 06:38 Direct Bilirubin < 0.2 mg/dL (0-0.2) 06/17/18 07:34 Indirect Bilirubin 0.3 mg/dL 06/17/18 07:34 AST 15 units/L (5-40) 07/02/18 06:38 ALT 12 units/L (7-56) 07/02/18 06:38 Alkaline Phosphatase 51 units/L (35-129) 07/02/18 06:38 Total Creatine Kinase 356 units/L (55-170) H 06/17/18 07:34 CK-MB (CK-2) 2.3 ng/mL (0.0-4.0) 06/17/18 07:34 CK-MB (CK-2) Rel Index 0.6 (0-4) 06/17/18 07:34 Troponin T < 0.010 ng/mL (0.00-0.029) 06/17/18 07:34 NT-Pro-B Natriuret Pep 9.44 pg/mL (0-450) 06/17/18 07:34 Total Protein 6.8 g/dL (6.3-8.2) 07/02/18 06:38 Albumin 3.9 g/dL (3.9-5) 07/02/18 06:38 Albumin/Globulin Ratio 1.3 % 07/02/18 06:38 Triglycerides 103 mg/dL (2-149) 06/26/18 07:01 Lipase 57 units/L (13-60) 06/17/18 07:34 Urine Color Yellow (Yellow) 06/17/18 10:00 Urine Turbidity Clear (Clear) 06/17/18 10:00 Urine pH 8.0 (5.0-7.0) H 06/17/18 10:00 Ur Specific [place] 1.034 (1.003-1.030) H 06/17/18 10:00 Urine Protein <15 mg/dl mg/dL (Negative) 06/17/18 10:00 Urine Glucose (UA) Neg mg/dL (Negative) 06/17/18 10:00 Urine Ketones Neg mg/dL (Negative) 06/17/18 10:00 Urine Blood Neg (Negative) 06/17/18 10:00 Urine Nitrite Neg (Negative) 06/17/18 10:00 Urine Bilirubin Neg (Negative) 06/17/18 10:00 Urine Urobilinogen < 2.0 mg/dL (<2.0) 06/17/18 10:00 Ur Leukocyte Esterase Neg (Negative) 06/17/18 10:00 Urine WBC (Auto) < 1.0 /HPF (0.0-6.0) 06/17/18 10:00 Urine RBC (Auto) < 1.0 /HPF (0.0-6.0) 06/17/18 10:00 Blood Type O POSITIVE 06/17/18 07:34 Antibody Screen Negative 06/17/18 07:34 Active Medications - Current Medications Current Medications: Generic Name Dose Route Start Last Admin Trade Name Freq PRN Reason Stop Dose Admin Acetaminophen 650 mg 06/30/18 12:46 07/02/18 06:37 Tylenol PO 650 mg Q6H PRN Administration Pain, Mild (1-3) Clonidine HCl 0.2 mg 06/24/18 15:00 07/01/18 15:00 Catapres-Tts Patch TD 0.2 mg Mo ROCIO Administration Diphenhydramine HCl 25 mg 06/29/18 15:43 Benadryl PO Q8H PRN Itching Heparin Sodium (Porcine) 5,000 unit 06/19/18 14:00 07/02/18 06:16 Heparin SUB-Q 5,000 unit Q8HR ROCIO Administration Hydralazine HCl 10 mg 06/23/18 15:30 06/30/18 05:27 Apresoline IV 10 mg Q4HR PRN Administration SBP>160 or DBP>110 Metronidazole 500 mg in 100 mls @ 100 mls/hr 06/17/18 10:00 07/02/18 06:15 Flagyl 500 Mg/100 Ml IV 100 mls/hr Q8HR [facility] Administration Protocol Cefepime HCl 2 gm in 100 mls @ 200 mls/hr 06/30/18 22:00 07/02/18 05:23 Maxipime/Ns 2 Gm/100 Ml IV 200 mls/hr Q8HR [facility] Administration Protocol Amino Acids/Electrolytes/Dextrose 2,400 mls @ 100 mls/hr 07/01/18 20:00 07/01/18 20:20 Tpn Adult IV 07/02/18 19:59 100 mls/hr DAILY@1999 [facility] Administration Protocol Amino Acids/Electrolytes/Dextrose 2,400 mls @ 100 mls/hr 07/02/18 20:00 Tpn Adult IV 07/03/18 19:59 DAILY@1999 [facility] Protocol Lorazepam 1 mg 06/18/18 03:29 06/20/18 00:23 Ativan IV 1 mg Q4H PRN Administration Alcohol Withdrawal Morphine Sulfate 2 mg 06/28/18 08:09 07/02/18 09:33 Morphine IV 2 mg Q4H PRN Administration Pain, Moderate (4-6) Nicotine 21 mg 06/28/18 12:00 07/02/18 09:32 Habitrol TD Not Given QDAY [facility] Ondansetron HCl 4 mg 06/17/18 13:00 07/02/18 09:33 Zofran IV 4 mg Q8H PRN Administration N/V IF NPO AND NO IV ACCESS Pantoprazole Sodium 40 mg 06/25/18 10:00 07/02/18 09:33 Protonix PO 40 mg DAILY ROCIO Administration Thiamine HCl 100 mg 06/18/18 10:00 07/02/18 09:33 Vitamin B-1 PO 100 mg QDAY [facility]IO Administration Nutrition/Malnutrition Assess - Dietary Evaluation Nutrition/Malnutrition Findings: Nutrition Notes Start: 06/24/18 15:58 Freq: Status: Active Protocol: Document 07/01/18 16:57 YUE (Rec: 07/01/18 17:02 [id number] [email or web address]) Nutrition Notes Initial or Follow up Reassessment Other Pertinent Diagnosis Diverticulitis, Abdominal pain , N/V/D Current Diet Cl liq + PPN at 100ml/hr Labs/Tests Reviewed Pertinent Medications Reviewed Height 5 ft 10 in Weight 89.59 kg [place] Body Weight (kg) 75.45 BMI 28.3 Weight change and time frame Current wt obtained from bed scale Subjective/Other Information Day 7 PPN. Diet advanced to cl liq today. Percent of energy/protein needs met: 40% energy 100% pro Burn Absent Trauma Absent #1 Nutrition Diagnosis Inadequate oral intake Diagnosis Progress(for reassessment Continues documentation) Is patient on ventilator? No Is Patient Ambulatory and/or Out of Bed Yes REE-([facility]-ambulatory/OOB) [ 2316.795 NUTR.MSJOOB] Calculation Used for Recommendations [facility] Additional Notes Pro needs 0.8-1g/k-90g/ day Fluid needs 1ml/kcal Nutrition Intervention Change Diet Order: Continue cl liq diet; advance as tolerated Nutrition Support: Continue PPN at 100ml/hr: MVI, 3.5% amino acids, 7.3% dextrose. Osmolality: 877. Kcal 935 Protein (gm) 85 Carbohydrates (gm) 175 Fat (gm) 0 Fluid (mL) 2,400 Fiber (gm) 0 Goal #1 PPN to meet calorie and protein needs as best possible Goal #2 Diet advancement to meet nutrient needs Follow-Up By: 07/02/18 Additional Comments Labs in am: CMP, Mg, Phos
--- NOTE | 2018-07-02 12:29 | Progress Note ---
Assessment and Plan Pt feeling well. no abd pain. elisabeth cl liq diet Abd soft, non tender stable resolving diverticulitis full liq diet may taper TPN if diet elisabeth advance to solid high fiber diet in am if full liq elisabeth throughout the day Reviewed Rx plan with pt. will need GI f/u as outpt for colonoscopy in next couple of months. also pt already candidate for semi-elective sigmoid colectomy as this is his second serious bout with diverticulitis. po antibiotics on d/c as per ID Objective Vital Signs - 12hr 07/02/18 07/02/18 07/02/18 01:20 01:50 05:22 Respiratory 18 18 18 Rate Respiratory Rate [Abdomen] 07/02/18 07/02/18 07/02/18 05:52 06:37 09:04 Respiratory 18 18 Rate Respiratory 18 Rate [Abdomen] - Labs 06/27/18 05:51 07/02/18 06:38 Diabetes panel 07/02/18 Range/Units 06:38 Sodium 140 (137-145) mmol/L Potassium 4.4 (3.6-5.0) mmol/L Chloride 101.4 (98-107) mmol/L Carbon Dioxide 26 (22-30) mmol/L BUN 9 (9-20) mg/dL Creatinine 0.8 (0.8-1.5) mg/dL Glucose 84 (75-100) mg/dL Calcium 9.3 (8.4-10.2) mg/dL AST 15 (5-40) units/L ALT 12 (7-56) units/L Alkaline Phosphatase 51 (35-129) units/L Total Protein 6.8 (6.3-8.2) g/dL Albumin 3.9 (3.9-5) g/dL Calcium panel 07/02/18 Range/Units 06:38 Calcium 9.3 (8.4-10.2) mg/dL Phosphorus 3.70 (2.5-4.5) mg/dL Albumin 3.9 (3.9-5) g/dL Pituitary panel 07/02/18 Range/Units 06:38 Sodium 140 (137-145) mmol/L Potassium 4.4 (3.6-5.0) mmol/L Chloride 101.4 (98-107) mmol/L Carbon Dioxide 26 (22-30) mmol/L BUN 9 (9-20) mg/dL Creatinine 0.8 (0.8-1.5) mg/dL Glucose 84 (75-100) mg/dL Calcium 9.3 (8.4-10.2) mg/dL Adrenal panel 07/02/18 Range/Units 06:38 Sodium 140 (137-145) mmol/L Potassium 4.4 (3.6-5.0) mmol/L Chloride 101.4 (98-107) mmol/L Carbon Dioxide 26 (22-30) mmol/L BUN 9 (9-20) mg/dL Creatinine 0.8 (0.8-1.5) mg/dL Glucose 84 (75-100) mg/dL Calcium 9.3 (8.4-10.2) mg/dL Total Bilirubin 0.20 (0.1-1.2) mg/dL AST 15 (5-40) units/L ALT 12 (7-56) units/L Alkaline Phosphatase 51 (35-129) units/L Total Protein 6.8 (6.3-8.2) g/dL Albumin 3.9 (3.9-5) g/dL
--- NOTE | 2018-07-02 17:45 | Progress Note ---
Assessment and Plan Assessment and plan: Patient is 48 yo man with a history of tobacco dependency who was admitted for acute diverticulitis, repeat CT abd/pelvis shows worsening diverticulitis with possible small abscess. Patient diet was downgraded by to NPO per Dr. Kern. Patient does not want surgery which was presented as an option. Although the repeat scan was worse yesterday, clinically he is doing better. -Acute complicated diverticulitis: On PPN, iv abx, GS, Dr. Kern is following Continue on clear liquids Surgical inputs noted and appreciated Based on review of CT "descending colon inflammation around 50% -60% better." per surgery Will start on clear liquids with no carbonated drink Patient currently refusing surgery Clear liquid COLONSOCOPY OUTPATIENT WANTS PAIN MEDS ON DISCHARGE AND ALSO BP MEDS FEW DAYS OF ORAL ANTIBIOTICS Phlebitis: RESOLVED. TREATED WITH Warm compress. pt currently on antibiotics, elevate arm and change IV site -Sepsis due to the above Continue IV antibiotics -Tobacco dependency: deputy general counsel on stopping, pt verbalized understanding 15 mins of counselling provided -Alcohol abuse: watch from withdrawal, use Ciwa - DVT prophylaxis with heparin and GI Pepcid -Disposition if patient tolerates full liquids, would discontinue PPN discharge if okay with surgeon ANTICIPATE DISCHARGE IN 24HRS IF TOLERATING DIET History Interval history: Patient seen and examined, "i am feeling like new" no new complaints. Hospitalist Physical - Physical exam Narrative exam: Constitutional: Well-nourished well-developed. In no distress Head: Normocephalic atraumatic Eyes: Pupils are equal round and reactive to light Nose: No enlarged turbinates, no septal deviation. Mouth: Moist mucous membranes. Neck: Supple no thyromegaly. No bruit. No JVD Heart: Regular rate and rhythm, S1-S2 normal. No rubs murmurs or gallop Lungs: Clear to auscultation bilaterally. no rales or rhonchi Abdomen: Soft,non tender. Bowel sound are present. Extremities: no edema no warmth. No cyanosis, no clubbing. Neuro: Alert oriented Oriented x3. No focal sensory or motor deficit. Skin: No rashes or hyperpigmented spots Musculoskeletal system: No joint pain or swelling Hematological: No petechia or subcutanous hemorrhages. Immunological: No multiple septic spots on the skin Lymphatic: No generalized lymphadenopathy Psychiatry: Euthymic. Calm. - Constitutional Vitals: Temp Pulse Resp BP Pulse Ox 98 F 70 20 127/83 99 07/02/18 16:00 07/02/18 16:00 07/02/18 16:00 07/02/18 16:00 07/02/18 12:00 Results - Labs CBC & Chem 7: 07/03/18 01:09 07/03/18 05:47 Labs: Laboratory Last Values WBC 7.4 K/mm3 (4.5-11.0) 06/27/18 05:51 RBC 4.19 M/mm3 (3.65-5.03) 06/27/18 05:51 Hgb 13.3 gm/dl (11.8-15.2) 06/27/18 05:51 Hct 37.6 % (35.5-45.6) 06/27/18 05:51 MCV 90 fl (84-94) 06/27/18 05:51 MCH 32 pg (28-32) 06/27/18 05:51 MCHC 36 % (32-34) H 06/27/18 05:51 RDW 13.7 % (13.2-15.2) 06/27/18 05:51 Plt Count 801 K/mm3 (140-440) H 06/27/18 05:51 Lymph % (Auto) 24.7 % (13.4-35.0) 06/27/18 05:51 [place] % (Auto) 9.1 % (0.0-7.3) H 06/27/18 05:51 Eos % (Auto) 3.8 % (0.0-4.3) 06/27/18 05:51 Baso % (Auto) 0.7 % (0.0-1.8) 06/27/18 05:51 Lymph # 1.8 K/mm3 (1.2-5.4) 06/27/18 05:51 [place] # 0.7 K/mm3 (0.0-0.8) 06/27/18 05:51 Eos # 0.3 K/mm3 (0.0-0.4) 06/27/18 05:51 Baso # 0.1 K/mm3 (0.0-0.1) 06/27/18 05:51 Seg Neutrophils % 61.7 % (40.0-70.0) 06/27/18 05:51 Seg Neutrophils # 4.5 K/mm3 (1.8-7.7) 06/27/18 05:51 Sodium 140 mmol/L (137-145) 07/02/18 06:38 Potassium 4.4 mmol/L (3.6-5.0) 07/02/18 06:38 Chloride 101.4 mmol/L (98-107) 07/02/18 06:38 Carbon Dioxide 26 mmol/L (22-30) 07/02/18 06:38 Anion Gap 17 mmol/L 07/02/18 06:38 BUN 9 mg/dL (9-20) 07/02/18 06:38 Creatinine 0.8 mg/dL (0.8-1.5) 07/02/18 06:38 Estimated GFR > 60 ml/min 07/02/18 06:38 BUN/Creatinine Ratio 11 % 07/02/18 06:38 Glucose 84 mg/dL (75-100) 07/02/18 06:38 POC Glucose 87 (70-105) 07/02/18 17:17 Lactic Acid 1.60 mmol/L (0.7-2.0) 06/17/18 10:18 Calcium 9.3 mg/dL (8.4-10.2) 07/02/18 06:38 Phosphorus 3.70 mg/dL (2.5-4.5) 07/02/18 06:38 Magnesium 1.90 mg/dL (1.7-2.3) 07/02/18 06:38 Total Bilirubin 0.20 mg/dL (0.1-1.2) 07/02/18 06:38 Direct Bilirubin < 0.2 mg/dL (0-0.2) 06/17/18 07:34 Indirect Bilirubin 0.3 mg/dL 06/17/18 07:34 AST 15 units/L (5-40) 07/02/18 06:38 ALT 12 units/L (7-56) 07/02/18 06:38 Alkaline Phosphatase 51 units/L (35-129) 07/02/18 06:38 Total Creatine Kinase 356 units/L (55-170) H 06/17/18 07:34 CK-MB (CK-2) 2.3 ng/mL (0.0-4.0) 06/17/18 07:34 CK-MB (CK-2) Rel Index 0.6 (0-4) 06/17/18 07:34 Troponin T < 0.010 ng/mL (0.00-0.029) 06/17/18 07:34 NT-Pro-B Natriuret Pep 9.44 pg/mL (0-450) 06/17/18 07:34 Total Protein 6.8 g/dL (6.3-8.2) 07/02/18 06:38 Albumin 3.9 g/dL (3.9-5) 07/02/18 06:38 Albumin/Globulin Ratio 1.3 % 07/02/18 06:38 Triglycerides 103 mg/dL (2-149) 06/26/18 07:01 Lipase 57 units/L (13-60) 06/17/18 07:34 Urine Color Yellow (Yellow) 06/17/18 10:00 Urine Turbidity Clear (Clear) 06/17/18 10:00 Urine pH 8.0 (5.0-7.0) H 06/17/18 10:00 Ur Specific [place] 1.034 (1.003-1.030) H 06/17/18 10:00 Urine Protein <15 mg/dl mg/dL (Negative) 06/17/18 10:00 Urine Glucose (UA) Neg mg/dL (Negative) 06/17/18 10:00 Urine Ketones Neg mg/dL (Negative) 06/17/18 10:00 Urine Blood Neg (Negative) 06/17/18 10:00 Urine Nitrite Neg (Negative) 06/17/18 10:00 Urine Bilirubin Neg (Negative) 06/17/18 10:00 Urine Urobilinogen < 2.0 mg/dL (<2.0) 06/17/18 10:00 Ur Leukocyte Esterase Neg (Negative) 06/17/18 10:00 Urine WBC (Auto) < 1.0 /HPF (0.0-6.0) 06/17/18 10:00 Urine RBC (Auto) < 1.0 /HPF (0.0-6.0) 06/17/18 10:00 Blood Type O POSITIVE 06/17/18 07:34 Antibody Screen Negative 06/17/18 07:34 Active Medications - Current Medications Current Medications: Generic Name Dose Route Start Last Admin Trade Name Freq PRN Reason Stop Dose Admin Acetaminophen 650 mg 06/30/18 12:46 07/02/18 06:37 Tylenol PO 650 mg Q6H PRN Administration Pain, Mild (1-3) Clonidine HCl 0.2 mg 06/24/18 15:00 07/01/18 15:00 Catapres-Tts Patch TD 0.2 mg Mo ROCIO Administration Diphenhydramine HCl 25 mg 06/29/18 15:43 Benadryl PO Q8H PRN Itching Heparin Sodium (Porcine) 5,000 unit 06/19/18 14:00 07/02/18 15:02 Heparin SUB-Q 5,000 unit Q8HR ROCIO Administration Hydralazine HCl 10 mg 06/23/18 15:30 06/30/18 05:27 Apresoline IV 10 mg Q4HR PRN Administration SBP>160 or DBP>110 Metronidazole 500 mg in 100 mls @ 100 mls/hr 06/17/18 10:00 07/02/18 13:12 Flagyl 500 Mg/100 Ml IV 100 mls/hr Q8HR [facility] Administration Protocol Cefepime HCl 2 gm in 100 mls @ 200 mls/hr 06/30/18 22:00 07/02/18 15:01 Maxipime/Ns 2 Gm/100 Ml IV 200 mls/hr Q8HR [facility] Administration Protocol Amino Acids/Electrolytes/Dextrose 2,400 mls @ 100 mls/hr 07/01/18 20:00 07/01/18 20:20 Tpn Adult IV 07/02/18 19:59 100 mls/hr DAILY@1999 [facility] Administration Protocol Amino Acids/Electrolytes/Dextrose 2,400 mls @ 100 mls/hr 07/02/18 20:00 Tpn Adult IV 07/03/18 19:59 DAILY@1999 [facility] Protocol Lorazepam 1 mg 06/18/18 03:29 06/20/18 00:23 Ativan IV 1 mg Q4H PRN Administration Alcohol Withdrawal Morphine Sulfate 2 mg 06/28/18 08:09 07/02/18 13:42 Morphine IV 2 mg Q4H PRN Administration Pain, Moderate (4-6) Nicotine 21 mg 06/28/18 12:00 07/02/18 09:32 Habitrol TD Not Given QDAY [facility] Ondansetron HCl 4 mg 06/17/18 13:00 07/02/18 09:33 Zofran IV 4 mg Q8H PRN Administration N/V IF NPO AND NO IV ACCESS Pantoprazole Sodium 40 mg 06/25/18 10:00 07/02/18 09:33 Protonix PO 40 mg DAILY [facility] Administration Thiamine HCl 100 mg 06/18/18 10:00 07/02/18 09:33 Vitamin B-1 PO 100 mg QDAY [facility] Administration Nutrition/Malnutrition Assess - Dietary Evaluation Nutrition/Malnutrition Findings: Nutrition Notes Start: 06/24/18 15:58 Freq: Status: Active Protocol: Document 07/02/18 15:28 TW (Rec: 07/02/18 15:41 TW [id number]) Co-Sign 07/02/18 15:28 NHALL Nutrition Notes Initial or Follow up Reassessment Other Pertinent Diagnosis Diverticulitis, Abdominal pain , N/V/D Current Diet Full liq + PPN at 100ml/hr Labs/Tests Reviewed Pertinent Medications Reviewed Height 5 ft 10 in Weight 89.59 kg [place] Body Weight (kg) 75.45 BMI 28.3 Subjective/Other Information Day 8 PPN. Diet advanced to full liquid today. Percent of energy/protein needs met: 40% energy 100% pro Burn Absent Trauma Absent #1 Nutrition Diagnosis Inadequate oral intake Diagnosis Progress(for reassessment Continues documentation) Is patient on ventilator? No Is Patient Ambulatory and/or Out of Bed Yes REE-([facility]-ambulatory/OOB) [ 2316.795 NUTR.MSJOOB] Calculation Used for Recommendations [facility] Additional Notes Pro needs 0.8-1g/k-90g/ day Fluid needs 1ml/kcal Nutrition Intervention Change Diet Order: Continue full liq diet; advance as tolerated Nutrition Support: Continue PPN at 100ml/hr: MVI, 3.5% amino acids, 7.3% dextrose, 20mEq K, MVI, MTE. Osmolality: 868. Kcal 935 Protein (gm) 85 Carbohydrates (gm) 175 Fat (gm) 0 Fluid (mL) 2,400 Fiber (gm) 0 Goal #1 PPN to meet calorie and protein needs as best possible Goal #2 Diet advancement to meet nutrient needs Anticipated Discharge Needs: Unable to determine at this time Follow-Up By: 03/27/19 Additional Comments Labs in am: BMP, Mg, Milvias
[2018-07-02] MEDS ORDERED: TPN ADULT 2,400 ML IV SCH (20:00)
[2018-07-03 01:23] LABS: Basophils # (Auto) 0.1 K/mm3 (0.0-0.1); Basophils % (Auto) 1.1 % (0.0-1.8); Eosinophils # (Auto) 0.5 K/mm3 (0.0-0.4); Eosinophils % (Auto) 7.6 % (0.0-4.3); Hematocrit 37.3 % (35.5-45.6); Lymphocytes # (Auto) 1.5 K/mm3 (1.2-5.4); Lymphocytes % (Auto) 22.6 % (13.4-35.0); Mean Corpuscular HGB Conc 35 % (32-34); Mean Corpuscular Volume 90 fl (84-94); Monocytes # (Auto) 0.6 K/mm3 (0.0-0.8); Monocytes % (Auto) 9.9 % (0.0-7.3); Platelet Count 786 K/mm3 (140-440); Red Blood Count 4.16 M/mm3 (3.65-5.03); Red Cell Distribution Width 13.8 % (13.2-15.2)
[2018-07-03] MEDS: HEPARIN SUB-Q SCH ×2 (05:11→14:00)
[2018-07-03] MEDS: MORPHINE IV PRN ×2 (05:11→11:27)
[2018-07-03] MEDS: FLAGYL 500 MG/100 ML 500 MG/100 ML BAG IV SCH (05:12)
[2018-07-03] MEDS: MAXIPIME/NS 2 GM/100 ML 2 GM/100 ML BAG IV SCH (05:15)
[2018-07-03] MEDS: ZOFRAN IV PRN (06:51)
[2018-07-03 06:56] LABS: BUN/Creatinine Ratio 10; Blood Urea Nitrogen 7 mg/dL (9-20); Calcium 9.4 mg/dL (8.4-10.2); Hemolysis Index 6
[2018-07-03 06:58] VITALS: BP 145/96
--- NOTE | 2018-07-03 08:28 | Progress Note ---
Assessment and Plan Pt feeling well without compl. elisabeth full liq Abd soft, non tender surgically stable advance to solid high fiber diet may d/c from surg perspective if diet elisabeth home antibiotics as per ID f/u with PCP and GI rto I wk Selected Entries 07/01/18 07/02/18 07/03/18 23:30 01:50 05:40 Temperature 98.5 F 97.5 F L Respiratory 18 20 Rate Blood Pressure 130/82 145/96 Objective Vital Signs - 12hr 07/02/18 07/03/18 23:26 05:40 Temperature 98.2 F 97.5 F L Pulse Rate 62 74 Respiratory 18 20 Rate Blood Pressure 131/78 145/96 O2 Sat by Pulse 92 97 Oximetry - Labs 07/03/18 01:09 07/03/18 05:47 Diabetes panel 07/03/18 Range/Units 05:47 Sodium 140 (137-145) mmol/L Potassium 4.3 (3.6-5.0) mmol/L Chloride 102.0 (98-107) mmol/L Carbon Dioxide 29 (22-30) mmol/L BUN 7 L (9-20) mg/dL Creatinine 0.7 L (0.8-1.5) mg/dL Glucose 102 H (75-100) mg/dL Calcium 9.4 (8.4-10.2) mg/dL Calcium panel 07/03/18 Range/Units 05:47 Calcium 9.4 (8.4-10.2) mg/dL Phosphorus 3.70 (2.5-4.5) mg/dL Pituitary panel 07/03/18 Range/Units 05:47 Sodium 140 (137-145) mmol/L Potassium 4.3 (3.6-5.0) mmol/L Chloride 102.0 (98-107) mmol/L Carbon Dioxide 29 (22-30) mmol/L BUN 7 L (9-20) mg/dL Creatinine 0.7 L (0.8-1.5) mg/dL Glucose 102 H (75-100) mg/dL Calcium 9.4 (8.4-10.2) mg/dL Adrenal panel 07/03/18 Range/Units 05:47 Sodium 140 (137-145) mmol/L Potassium 4.3 (3.6-5.0) mmol/L Chloride 102.0 (98-107) mmol/L Carbon Dioxide 29 (22-30) mmol/L BUN 7 L (9-20) mg/dL Creatinine 0.7 L (0.8-1.5) mg/dL Glucose 102 H (75-100) mg/dL Calcium 9.4 (8.4-10.2) mg/dL
--- NOTE | 2018-07-03 10:38 | Discharge Summary ---
Providers - Providers Date of Admission: 06/17/18 10:20 Attending physician: CHANDLER LEIVA MD 06/17/18 09:41 Consult to Physician [CONS] Urgent Comment: Consulting Provider: PRINCESS GRACIA Physician Instructions: Reason For Exam: acute diverticulitis 06/18/18 07:49 Consult to Physician [CONS] Routine Comment: Consulting Provider: MIRIAN BRADY Physician Instructions: Reason For Exam: diverticulitis 06/19/18 13:02 Consult to Physician [CONS] Routine Comment: Consulting Provider: CHRIS JAVIER Physician Instructions: Reason For Exam: Diverticulitis 06/24/18 14:55 Consult to Dietitian/Nutrition [CONS] Routine Physician Instructions: PPN please Reason For Exam: Reason for Consult: Write/Manage TPN/PPN [facility] Reason for admission: abdominal pain Condition: Stable Hospital course: Patient is 48 yo man with a history of tobacco dependency who was admitted for acute diverticulitis, repeat CT abd/pelvis shows worsening diverticulitis with possible small abscess. Patient diet was downgraded by to NPO per Dr. Kern. Patient does not want surgery which was presented as an option. Although the repeat scan was worse yesterday, clinically he is doing better. -Acute complicated diverticulitis: Patient wastreated with supportive care as he refused surgery, was placed on TPN till repeat CT Based on review of CT "descending colon inflammation around 50% -60% better." per surgery, he was started on clear liquids and then advanced wi th no carbonated drink Outpatient colonosopy was recommended and continued abx for a few more days Phlebitis: RESOLVED. TREATED WITH Warm compress. pt currently on antibiotics, elevate arm and change IV site -Sepsis due to the above -Tobacco dependency: rehabilitation counsellor on stopping, pt verbalized understanding 15 mins of counselling provided -Alcohol abuse: watch from withdrawal, use [place] Disposition: DC-01 TO HOME OR SELFCARE Time spent for discharge: 35 mins Core Measure Documentation - Palliative Care Palliative Care/ Comfort Measures: Not Applicable - Core Measures Any of the following diagnoses?: none Exam - Physical Exam Narrative exam: Constitutional: Well-nourished well-developed. In no distress Head: Normocephalic atraumatic Eyes: Pupils are equal round and reactive to light Nose: No enlarged turbinates, no septal deviation. Mouth: Moist mucous membranes. Neck: Supple no thyromegaly. No bruit. No JVD Heart: Regular rate and rhythm, S1-S2 normal. No rubs murmurs or gallop Lungs: Clear to auscultation bilaterally. no rales or rhonchi Abdomen: Soft,non tender. Bowel sound are present. Extremities: no edema no warmth. No cyanosis, no clubbing. Neuro: Alert oriented Oriented x3. No focal sensory or motor deficit. Skin: No rashes or hyperpigmented spots Musculoskeletal system: No joint pain or swelling Hematological: No petechia or subcutanous hemorrhages. Immunological: No multiple septic spots on the skin Lymphatic: No generalized lymphadenopathy Psychiatry: Euthymic. Calm. - Constitutional Vitals: Temp Pulse Resp BP Pulse Ox 97.5 F L 74 20 145/96 97 07/03/18 05:40 07/03/18 05:40 07/03/18 05:40 07/03/18 05:40 07/03/18 05:40 Plan Activity: advance as tolerated, fall precautions Diet: advance as tolerated (No carbonated drink) Special Instructions: record daily BP diary, smoking cessation Follow [facility] [Primary Care Provider] - 3-5 Days PRINCESS GRACIA MD [Staff Physician] - 7 Days CHRIS JAVIER MD [Staff Physician] - 14 Days Prescriptions: Amoxicillin/Potassium Clav [Augmentin 875-125 Tablet] 1 each PO BID 7 Days tablet Pantoprazole [Protonix TAB] 40 mg PO DAILY #30 tablet Triamterene/Hydrochlorothiazid [Triamterene-Hctz 37.5-25 mg Cp] 1 each PO DAILY #30 capsule traMADol [Ultram] 50 mg PO Q6HR PRN #14 tablet PRN Reason: Pain Thiamine [Vitamin B-1] 100 mg PO QDAY #30 tablet Lisinopril [Zestril TAB] 10 mg PO QDAY #30 tablet
--- NOTE | 2018-07-03 10:41 | Progress Note ---
Assessment and Plan Cultures: 06/17/2018 blood culture: No growth 06/17/2018 urine culture: No growth 06/18/2018 MRSA PCR: negative A/P: 48-year-old male with history of diverticulosis admitted with: 1) Sepsis Resolved, secondary to acute descending colon diverticulitis: CT without any evidence of perforation or abscess. Gen Surg following. On conservative management. nausea and cramping with clear liquid. Repeat CT 07/01/18 shows 50-75% improvement in the descending colon diverticulitis. Tolerating diet. Will f/u with GI as outpatient for colonoscopy. Anticipate discharge on Augmentin 875 mg PO BID for 7 days 2) Significant tobacco abuse: Smoking cessation advised. 3) Alcohol abuse: Monitor for withdrawal. Recs: Discontinue Cefepime and Flagyl Start Augmentin 875 mg PO BID for 7 days ending 07-09-18 Clinically stable, Ok to discharge from ID standpoint f/u with GI as outpatient for colonoscopy Janette Hernandez NP [facility] M: [phone] O:[phone] Subjective Date of service: 07/03/18 Principal diagnosis: diverticulitis, sepsis, alcohol abuse. Interval history: Patient seen and examined. Standing up at the sink. No acute distress. no fevers. Objective - Exam Narrative Exam: Constitutional: Alert, cooperative. no acute distress Head, Ears, Nose: Normocephalic, atraumatic. External ears, nose normal Eyes: Conjunctivae/corneas clear. No icterus. No ptosis. Neck: Supple, no meningeal signs Oral: dentition fair, multiple fillings, no thrush Cardiovascular: S1, S2 normal. Respiratory: Good air entry, clear to auscultation bilaterally GI: Soft, left side pain and tenderness- improved. bowel sounds + Musculoskeletal: No pedal edema, no cyanosis. Skin: No rash or abscess Hem/Lymphatic: No palpable cervical or supraclavicular nodes. No lymphangitis Psych: Mood ok. Affect normal Neurological: Awake, alert, oriented. No gross abnormality - Constitutional Vitals: Vital Signs Temp Pulse Resp BP Pulse Ox 97.5 F L 74 20 145/96 97 07/03/18 05:40 07/03/18 05:40 07/03/18 05:40 07/03/18 05:40 07/03/18 05:40 Temperature -Last 24 Hours Temperature 97.5 F Temperature 98.2 F Temperature 98 F Temperature 98.0 F Temperature 98.2 F - Labs CBC & Chem 7: 07/03/18 01:09 07/03/18 05:47 Labs: Abnormal lab results 07/03/18 07/03/18 Range/Units 01:09 05:47 MCHC 35 H (32-34) % Plt Count 786 H (140-440) K/mm3 [place] % (Auto) 9.9 H (0.0-7.3) % Eos % (Auto) 7.6 H (0.0-4.3) % Eos # 0.5 H (0.0-0.4) K/mm3 BUN 7 L (9-20) mg/dL Creatinine 0.7 L (0.8-1.5) mg/dL Glucose 102 H (75-100) mg/dL
[2018-07-03] MEDS ORDERED: AUGMENTIN 875 MG PO SCH (11:00)
[2018-07-03] MEDS: VITAMIN B-1 PO SCH (11:27)
[2018-07-03] MEDS: PROTONIX PO SCH (11:27)
[2018-07-03] MEDS: HABITROL TD SCH (11:28)
== END 2018-07-03 14:00 | disposition home or self-care (01) | DRG 872 ==
LOC: ED 06:36 → 4A 10:20 → 3A 06-19 16:33
PROVIDERS: ADMIT Internal Medicine; ATTEND Internal Medicine
DX: A41.9 Sepsis, unspecified organism (principal); K57.32 Diverticulitis of large intestine without perforation or abscess without bleeding; L03.113 Cellulitis of right upper limb; I10 Essential (primary) hypertension; F17.200 Nicotine dependence, unspecified, uncomplicated; F10.10 Alcohol abuse, uncomplicated; I80.9 Phlebitis and thrombophlebitis of unspecified site; E83.42 Hypomagnesemia; N28.1 Cyst of kidney, acquired; I16.0 Hypertensive urgency; Z71.6 Tobacco abuse counseling; Z82.49 Family history of ischemic heart disease and other diseases of the circulatory system; Z82.3 Family history of stroke
CPT/HCPCS: 36415; 71045; 74177; 80048; 80053; 80076; 81001; 82140; 82550; 82553; 82962; 83690; 83735; 83880; 84100; 84478; 84484; 85025; 85027; 86850; 86900; 86901; 87040; 87086; 87116; 93005; 93010; G0378; C9113; J0360; J0692; J0696; J1170; J1644; J1956; J2060; J2270; J2405; J2543; J3475; J7030; J7042; Q9967

== ENCOUNTER 2018-07-16 07:35 | Emergency (ER) | payer OTHER, SELFPAY ==
[2018-07-16] MEDS ORDERED: NACL 0.9% 1000 ML 1,000 ML IV ONE (07:43)
[2018-07-16 07:54] LABS: Basophils # (Auto) 0.1 K/mm3 (0.0-0.1); Basophils % (Auto) 0.9 % (0.0-1.8); Eosinophils # (Auto) 0.3 K/mm3 (0.0-0.4); Eosinophils % (Auto) 4.4 % (0.0-4.3); Hematocrit 42.3 % (35.5-45.6); Hemoglobin 14.5 gm/dl (11.8-15.2); Lymphocytes # (Auto) 2.3 K/mm3 (1.2-5.4); Mean Corpuscular HGB Conc 34 % (32-34); Mean Corpuscular Volume 90 fl (84-94); Monocytes # (Auto) 0.4 K/mm3 (0.0-0.8); Monocytes % (Auto) 7.2 % (0.0-7.3); Platelet Count 422 K/mm3 (140-440); Red Cell Distribution Width 13.8 % (13.2-15.2)
[2018-07-16 08:17] LABS: Alanine Aminotransferase 22 units/L (7-56); Albumin 4.2 g/dL (3.9-5); BUN/Creatinine Ratio 13; Blood Urea Nitrogen 10 mg/dL (9-20); Calcium 9.2 mg/dL (8.4-10.2); Hemolysis Index 24
[2018-07-16] MEDS ORDERED: MORPHINE IV ONE ×2 (09:34→12:17)
[2018-07-16] MEDS ORDERED: ZOFRAN IV ONE ×2 (09:34→12:17)
[2018-07-16 09:57] LABS: Bacteria,Urine 1+ /HPF (Negative); Bilirubin,Urine NEG (Negative); Blood,Urine NEG (Negative); Color,Urine Yellow (Yellow); Mucus,Urine FEW /HPF; Protein,Urine <15 mg/dL mg/dL (Negative); Urobilinogen,Urine < 2.0 mg/dL (<2.0)
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
--- NOTE | 2018-07-16 09:59 | XRay Report ---
CERVICAL SPINE, 3 views: History: Cervical radiculopathy. Findings: Normal bone mineralization. Normal height and alignment of the vertebral bodies. The posterior elements are unremarkable. Minor disc space narrowing with posterior spurring is identified at C4-5 and C6-7. No evidence for fracture, subluxation or bone lesion. The prevertebral soft tissues are normal thickness. Impression: Mild degenerative disc disease at C4-5 and C6-7.
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
[2018-07-16] MEDS ORDERED: SOLU-Medrol IV ONE (12:17)
[2018-07-16 13:41] VITALS: BP 112/82
== END 2018-07-16 13:47 | disposition home or self-care (01) ==
LOC: ED 07:35
DX: M54.12 Radiculopathy, cervical region (principal); K57.92 Diverticulitis of intestine, part unspecified, without perforation or abscess without bleeding; F17.200 Nicotine dependence, unspecified, uncomplicated; Z79.899 Other long term (current) drug therapy
CPT/HCPCS: 36415; 72040; 74177; 80053; 81001; 83690; 85025; 96374; 96375; 96376; 99284; J2270; J2405; J2930; J7030; Q9967

== ENCOUNTER 2018-08-07 04:06 | Inpatient (IN) | payer SELFPAY ==
[2018-08-07] MEDS ORDERED: ZOFRAN IV ONE (04:26)
[2018-08-07] MEDS ORDERED: MORPHINE IV ONE (04:26)
[2018-08-07 04:30] LABS: Basophils # (Auto) 0.1 K/mm3 (0.0-0.1); Basophils % (Auto) 0.9 % (0.0-1.8); Eosinophils # (Auto) 0.1 K/mm3 (0.0-0.4); Eosinophils % (Auto) 0.6 % (0.0-4.3); Hematocrit 40.4 % (35.5-45.6); Hemoglobin 13.5 gm/dl (11.8-15.2); Lymphocytes # (Auto) 1.3 K/mm3 (1.2-5.4); Lymphocytes % (Auto) 7.9 % (13.4-35.0); Mean Corpuscular HGB Conc 33 % (32-34); Mean Corpuscular Volume 90 fl (84-94); Monocytes # (Auto) 1.1 K/mm3 (0.0-0.8); Monocytes % (Auto) 7.1 % (0.0-7.3); Platelet Count 457 K/mm3 (140-440); Red Blood Count 4.47 M/mm3 (3.65-5.03); Red Cell Distribution Width 14.2 % (13.2-15.2)
[2018-08-07 04:53] LABS: Alanine Aminotransferase 16 units/L (7-56); Albumin 4.2 g/dL (3.9-5); BUN/Creatinine Ratio 14; Blood Urea Nitrogen 10 mg/dL (9-20); Calcium 8.9 mg/dL (8.4-10.2); Hemolysis Index 15
[2018-08-07] MEDS ORDERED: DILAUDID IV ONE ×2 (05:05→07:14)
[2018-08-07] MEDS ORDERED: DILAUDID ONE (05:09)
[2018-08-07] MEDS ORDERED: ZOSYN/NS 3.375GM/50ML 3.375 GM/50 ML BAG IV ONE (05:14)
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
[2018-08-07 06:09] LABS: Bilirubin,Urine NEG (Negative); Blood,Urine NEG (Negative); Color,Urine Yellow (Yellow); Mucus,Urine FEW /HPF; Protein,Urine <15 mg/dL mg/dL (Negative)
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
[2018-08-07] MEDS ORDERED: NACL 0.9% 1000 ML 2,000 ML IV ONE (06:21)
[2018-08-07] MEDS ORDERED: NACL 0.9% 1000 ML 1,000 ML IV ONE (06:21)
[2018-08-07 06:45] LABS: WBC,Urine < 1.0 /HPF (0.0-6.0)
[2018-08-07] MEDS ORDERED: TYLENOL PO PRN (08:50)
[2018-08-07] MEDS ORDERED: SODIUM CHLORIDE FLUSH SYRINGE 10 ML IV PRN (08:50)
[2018-08-07] MEDS ORDERED: APRESOLINE IV PRN (09:06)
[2018-08-07] MEDS: MORPHINE IV PRN ×2 (10:28→14:13)
[2018-08-07] MEDS: NACL 0.9% 1000 ML 1,000 ML IV SCH (10:29)
[2018-08-07] MEDS: SODIUM CHLORIDE FLUSH SYRINGE 10 ML IV SCH ×2 (10:29→21:54)
[2018-08-07] MEDS: ZOFRAN IV PRN (10:37)
[2018-08-07] MEDS ORDERED: CATAPRES-TTS PATCH TD SCH (11:00)
[2018-08-07] MEDS: ROCEPHIN/NS 2 GM/100 ML 2 GM/100 ML BAG IV SCH (11:51)
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
[2018-08-07] MEDS: FLAGYL 500 MG/100 ML 500 MG/100 ML BAG IV SCH ×2 (13:22→21:54)
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
[2018-08-07] MEDS: DILAUDID IV PRN ×2 (18:13→22:24)
[2018-08-07] MEDS: NORCO 10/325 PO PRN (20:10)
[2018-08-07] MEDS: LOVENOX SUB-Q SCH (21:54)
[2018-08-08] MEDS: NACL 0.9% 1000 ML 1,000 ML IV SCH ×2 (01:22→17:38)
[2018-08-08] MEDS: NORCO 10/325 PO PRN ×2 (01:36→07:32)
[2018-08-08] MEDS: DILAUDID IV PRN ×5 (04:17→21:56)
[2018-08-08] MEDS: FLAGYL 500 MG/100 ML 500 MG/100 ML BAG IV SCH ×3 (05:13→21:55)
[2018-08-08 06:09] LABS: Basophils # (Auto) 0.1 K/mm3 (0.0-0.1); Basophils % (Auto) 0.5 % (0.0-1.8); Eosinophils # (Auto) 0.1 K/mm3 (0.0-0.4); Eosinophils % (Auto) 1.3 % (0.0-4.3); Hematocrit 37.5 % (35.5-45.6); Hemoglobin 12.8 gm/dl (11.8-15.2); Lymphocytes # (Auto) 1.5 K/mm3 (1.2-5.4); Mean Corpuscular HGB Conc 34 % (32-34); Mean Corpuscular Volume 90 fl (84-94); Monocytes % (Auto) 10.2 % (0.0-7.3); Platelet Count 414 K/mm3 (140-440); Red Blood Count 4.15 M/mm3 (3.65-5.03)
[2018-08-08 06:34] LABS: BUN/Creatinine Ratio 9; Blood Urea Nitrogen 6 mg/dL (9-20); Hemolysis Index 3
--- NOTE | 2018-08-08 08:57 | Progress Note ---
<LAVONNE SINGH - Last Filed: 08/08/18 15:20> Assessment and Plan Assessment and plan: 48-year-old -H[place] Haitian male with history of hypertension and diverticulitis who presented to [facility] ED with complaints of recurrent sharp abdominal pain for the past 2 days which progressively worsened overnight.CT abd and pelvis shows Mild inflammatory changes in the descending and sigmoid colon compatible some combination of chronic and/or acute diverticulitis changes; No evidence of perforation or abscess; Generalized colonic diverticulosis. Pt admitted to Medical floor. Diverticulitis- recurrent Sepsis- secondary to diverticulitis Leukocytosis Acute Pain Hypertensive urgency HTN Tobacco abuse ETOH abuse Plan: Continue IV Ceftriaxone and Flagyl Monitor BP Continue IV hydralazine PRN Continue clondine 0.2mg patch Resume home meds: Lisinopril 10mg daily, and HCTZ 37.5mg daily Advance diet to clears Continue NS @100 ml/hr Continue Pain mgmt Monitor CBC Per Gen Surg will need elective partial colectomy as outpatient when inflammation has improved. pt will need to follow up with Dr. Hutchins as outpt if he decides to proceed with surgery GI following and recommends patient f/u in clinic upon discharge in 2-3 weeks to schedule outpatient colonoscopy (in approximately 4-6 weeks) for further evaluation (r/o neoplasm) once diverticulitis has resolved Consult ID following recommendations appreciated Counseled for Tobbacco cessation and ETOH abuse DVT PPX Lovenox History Interval history: Mr. Potts is seen today on the Medical floor. He states that his abdominal pain is improving. He remains on NS @100ml/hr and is currently NPO. He denies dyspnea, nausea, vomiting, diarrhea, or any more episodes of bright red blood in stool. Hospitalist Physical - Physical exam Narrative exam: EENT Eyes: Present: PERRL, EOM intact ENT: clear oral mucosa, dentition normal - Neck Neck: Present: supple, normal ROM - Respiratory Respiratory effort: normal Respiratory: bilateral: CTA - Cardiovascular Heart rate: 79 (bpm) Rhythm: regular Heart Sounds: Present: S1 & S2 - Extremities Extremities: no ischemia, pulses intact, pulses symmetrical - Abdominal General gastrointestinal: Present: tender, active Localized gastrointestinal: tender: diffuse, guarding: diffuse Male genitourinary: Present: deferred - Rectal Rectal Exam: deferred - Integumentary Integumentary: Present: warm, dry - Musculoskeletal Musculoskeletal: strength equal bilaterally - Psychiatric Psychiatric: appropriate mood/affect, cooperative - Neurologic Neurologic: CNII-XII intact, moves all extremities - Constitutional Vitals: Temp Pulse Resp BP Pulse Ox 98.4 F 73 20 154/101 96 08/08/18 05:37 08/08/18 05:37 08/08/18 05:37 08/08/18 05:37 08/08/18 05:37 General appearance: Present: mild distress Results - Labs CBC & Chem 7: 08/08/18 05:40 08/08/18 05:40 Labs: Laboratory Last Values WBC 9.7 K/mm3 (4.5-11.0) 08/08/18 05:40 RBC 4.15 M/mm3 (3.65-5.03) 08/08/18 05:40 Hgb 12.8 gm/dl (11.8-15.2) 08/08/18 05:40 Hct 37.5 % (35.5-45.6) 08/08/18 05:40 MCV 90 fl (84-94) 08/08/18 05:40 MCH 31 pg (28-32) 08/08/18 05:40 MCHC 34 % (32-34) 08/08/18 05:40 RDW 14.0 % (13.2-15.2) 08/08/18 05:40 Plt Count 414 K/mm3 (140-440) 08/08/18 05:40 Lymph % (Auto) 15.0 % (13.4-35.0) 08/08/18 05:40 [place] % (Auto) 10.2 % (0.0-7.3) H 08/08/18 05:40 Eos % (Auto) 1.3 % (0.0-4.3) 08/08/18 05:40 Baso % (Auto) 0.5 % (0.0-1.8) 08/08/18 05:40 Lymph # 1.5 K/mm3 (1.2-5.4) 08/08/18 05:40 [place] # 1.0 K/mm3 (0.0-0.8) H 08/08/18 05:40 Eos # 0.1 K/mm3 (0.0-0.4) 08/08/18 05:40 Baso # 0.1 K/mm3 (0.0-0.1) 08/08/18 05:40 Seg Neutrophils % 73.0 % (40.0-70.0) H 08/08/18 05:40 Seg Neutrophils # 7.1 K/mm3 (1.8-7.7) 08/08/18 05:40 Sodium 135 mmol/L (137-145) L 08/08/18 05:40 Potassium 4.1 mmol/L (3.6-5.0) 08/08/18 05:40 Chloride 96.4 mmol/L (98-107) L 08/08/18 05:40 Carbon Dioxide 26 mmol/L (22-30) 08/08/18 05:40 Anion Gap 17 mmol/L 08/08/18 05:40 BUN 6 mg/dL (9-20) L 08/08/18 05:40 Creatinine 0.7 mg/dL (0.8-1.5) L 08/08/18 05:40 Estimated GFR > 60 ml/min 08/08/18 05:40 BUN/Creatinine Ratio 9 % 08/08/18 05:40 Glucose 86 mg/dL (75-100) 08/08/18 05:40 Lactic Acid 0.70 mmol/L (0.7-2.0) 08/07/18 06:40 Calcium 9.0 mg/dL (8.4-10.2) 08/08/18 05:40 Total Bilirubin 0.70 mg/dL (0.1-1.2) 08/07/18 04:20 AST 13 units/L (5-40) 08/07/18 04:20 ALT 16 units/L (7-56) 08/07/18 04:20 Alkaline Phosphatase 71 units/L (35-129) 08/07/18 04:20 C-Reactive Protein 9.20 mg/dL (0.00-1.30) H 08/07/18 20:27 Total Protein 7.1 g/dL (6.3-8.2) 08/07/18 04:20 Albumin 4.2 g/dL (3.9-5) 08/07/18 04:20 Albumin/Globulin Ratio 1.4 % 08/07/18 04:20 Lipase 57 units/L (13-60) 08/07/18 04:20 Urine Color Yellow (Yellow) 08/07/18 06:00 Urine Turbidity Clear (Clear) 08/07/18 06:00 Urine pH 8.0 (5.0-7.0) H 08/07/18 06:00 Ur Specific [place] 1.027 (1.003-1.030) 08/07/18 06:00 Urine Protein <15 mg/dl mg/dL (Negative) 08/07/18 06:00 Urine Glucose (UA) Neg mg/dL (Negative) 08/07/18 06:00 Urine Ketones Neg mg/dL (Negative) 08/07/18 06:00 Urine Blood Neg (Negative) 08/07/18 06:00 Urine Nitrite Neg (Negative) 08/07/18 06:00 Urine Bilirubin Neg (Negative) 08/07/18 06:00 Urine Urobilinogen 2.0 mg/dL (<2.0) 08/07/18 06:00 Ur Leukocyte Esterase Neg (Negative) 08/07/18 06:00 Urine WBC (Auto) < 1.0 /HPF (0.0-6.0) 08/07/18 06:00 Urine RBC (Auto) 2.0 /HPF (0.0-6.0) 08/07/18 06:00 Urine Mucus Few /HPF 08/07/18 06:00 Active Medications - Current Medications Current Medications: Generic Name Dose Route Start Last Admin Trade Name Freq PRN Reason Stop Dose Admin Acetaminophen 650 mg 08/07/18 08:50 Tylenol PO Q4H PRN Pain MILD(1-3)/Fever >100.5/[place] Acetaminophen/Hydrocodone Bitart 1 each 08/07/18 15:58 08/08/18 07:32 [place] 10/325 PO 1 each Q6H PRN Administration Pain, Moderate (4-6) Clonidine HCl 0.2 mg 08/07/18 11:00 08/07/18 11:52 Catapres-Tts Patch TD 0.2 mg QWEEK ROCIO Administration Enoxaparin Sodium 40 mg 08/07/18 22:00 08/07/18 21:54 Lovenox SUB-Q 40 mg QDAY@2200 ROCIO Administration Hydralazine HCl 10 mg 08/07/18 09:06 Apresoline IV Q4HR PRN Blood Pressure Hydromorphone HCl 0.5 mg 08/07/18 15:58 08/08/18 04:17 Dilaudid IV 0.5 mg Q4H PRN Administration Pain , Severe (7-10) Sodium Chloride 1,000 mls @ 100 mls/hr 08/07/18 09:00 08/08/18 01:22 Nacl 0.9% 1000 Ml IV 100 mls/hr DIRECT ROCIO Administration Ceftriaxone Sodium 2 gm in 100 mls @ 200 mls/hr 08/07/18 11:00 08/07/18 11:51 Rocephin/Ns 2 Gm/100 Ml IV 200 mls/hr Q24HR ROCIO Administration Protocol Metronidazole 500 mg in 100 mls @ 100 mls/hr 08/07/18 14:00 08/08/18 05:13 Flagyl 500 Mg/100 Ml IV 100 mls/hr Q8HR ROCIO Administration Protocol Ondansetron HCl 4 mg 08/07/18 08:50 08/07/18 10:37 Zofran IV 4 mg Q8H PRN Administration Nausea And Vomiting Sodium Chloride 10 ml 08/07/18 10:00 08/07/18 21:54 Sodium Chloride Flush Syringe 10 Ml IV 10 ml BID ROCIO Administration Sodium Chloride 10 ml 08/07/18 08:50 Sodium Chloride Flush Syringe 10 Ml IV PRN PRN LINE FLUSH <ORLIN MOORE M - Last Filed: 08/10/18 20:21> Assessment and Plan Assessment and plan: I saw and evaluated the patient. I agree with the findings and the plan of care as documented in the Nurse Practitioner's~note Hospitalist Physical - Constitutional Vitals: Temp Pulse Resp BP Pulse Ox 97.7 F 18 L 20 149/100 98 08/10/18 17:16 08/10/18 17:16 08/10/18 12:23 08/10/18 17:15 08/10/18 17:15 Results - Labs CBC & Chem 7: 08/09/18 04:50 08/09/18 04:50 Labs: Laboratory Last Values WBC 7.1 K/mm3 (4.5-11.0) 08/09/18 04:50 RBC 4.14 M/mm3 (3.65-5.03) 08/09/18 04:50 Hgb 12.6 gm/dl (11.8-15.2) 08/09/18 04:50 Hct 37.2 % (35.5-45.6) 08/09/18 04:50 MCV 90 fl (84-94) 08/09/18 04:50 MCH 31 pg (28-32) 08/09/18 04:50 MCHC 34 % (32-34) 08/09/18 04:50 RDW 14.5 % (13.2-15.2) 08/09/18 04:50 Plt Count 429 K/mm3 (140-440) 08/09/18 04:50 Lymph % (Auto) 19.3 % (13.4-35.0) 08/09/18 04:50 [place] % (Auto) 10.1 % (0.0-7.3) H 08/09/18 04:50 Eos % (Auto) 2.1 % (0.0-4.3) 08/09/18 04:50 Baso % (Auto) 1.4 % (0.0-1.8) 08/09/18 04:50 Lymph # 1.4 K/mm3 (1.2-5.4) 08/09/18 04:50 [place] # 0.7 K/mm3 (0.0-0.8) 08/09/18 04:50 Eos # 0.2 K/mm3 (0.0-0.4) 08/09/18 04:50 Baso # 0.1 K/mm3 (0.0-0.1) 08/09/18 04:50 Seg Neutrophils % 67.1 % (40.0-70.0) 08/09/18 04:50 Seg Neutrophils # 4.7 K/mm3 (1.8-7.7) 08/09/18 04:50 Sodium 135 mmol/L (137-145) L 08/09/18 04:50 Potassium 4.1 mmol/L (3.6-5.0) 08/09/18 04:50 Chloride 100.4 mmol/L (98-107) 08/09/18 04:50 Carbon Dioxide 24 mmol/L (22-30) 08/09/18 04:50 Anion Gap 15 mmol/L 08/09/18 04:50 BUN 7 mg/dL (9-20) L 08/09/18 04:50 Creatinine 0.7 mg/dL (0.8-1.5) L 08/09/18 04:50 Estimated GFR > 60 ml/min 08/09/18 04:50 BUN/Creatinine Ratio 10 % 08/09/18 04:50 Glucose 91 mg/dL (75-100) 08/09/18 04:50 Lactic Acid 0.70 mmol/L (0.7-2.0) 08/07/18 06:40 Calcium 8.6 mg/dL (8.4-10.2) 08/09/18 04:50 Total Bilirubin 0.70 mg/dL (0.1-1.2) 08/07/18 04:20 AST 13 units/L (5-40) 08/07/18 04:20 ALT 16 units/L (7-56) 08/07/18 04:20 Alkaline Phosphatase 71 units/L (35-129) 08/07/18 04:20 C-Reactive Protein 9.20 mg/dL (0.00-1.30) H 08/07/18 20:27 Total Protein 7.1 g/dL (6.3-8.2) 08/07/18 04:20 Albumin 4.2 g/dL (3.9-5) 08/07/18 04:20 Albumin/Globulin Ratio 1.4 % 08/07/18 04:20 Lipase 57 units/L (13-60) 08/07/18 04:20 Urine Color Yellow (Yellow) 08/07/18 06:00 Urine Turbidity Clear (Clear) 08/07/18 06:00 Urine pH 8.0 (5.0-7.0) H 08/07/18 06:00 Ur Specific [place] 1.027 (1.003-1.030) 08/07/18 06:00 Urine Protein <15 mg/dl mg/dL (Negative) 08/07/18 06:00 Urine Glucose (UA) Neg mg/dL (Negative) 08/07/18 06:00 Urine Ketones Neg mg/dL (Negative) 08/07/18 06:00 Urine Blood Neg (Negative) 08/07/18 06:00 Urine Nitrite Neg (Negative) 08/07/18 06:00 Urine Bilirubin Neg (Negative) 08/07/18 06:00 Urine Urobilinogen 2.0 mg/dL (<2.0) 08/07/18 06:00 Ur Leukocyte Esterase Neg (Negative) 08/07/18 06:00 Urine WBC (Auto) < 1.0 /HPF (0.0-6.0) 08/07/18 06:00 Urine RBC (Auto) 2.0 /HPF (0.0-6.0) 08/07/18 06:00 Urine Mucus Few /HPF 08/07/18 06:00 Active Medications - Current Medications Current Medications: Generic Name Dose Route Start Last Admin Trade Name Freq PRN Reason Stop Dose Admin Acetaminophen 650 mg 08/07/18 08:50 Tylenol PO Q4H PRN Pain MILD(1-3)/Fever >100.5/[place] Acetaminophen/Hydrocodone Bitart 1 each 08/07/18 15:58 08/09/18 08:25 [place] 10/325 PO 1 each Q6H PRN Administration Pain, Moderate (4-6) Al Hydrox/Mg Hydrox/Simethicone 30 ml 08/10/18 15:30 08/10/18 15:18 Alum-Mag Hydrox-Simeth 275-875-47wp/5ml PO 30 ml Q4H PRN Administration Indigestion Clonidine HCl 0.2 mg 08/07/18 11:00 08/07/18 11:52 Catapres-Tts Patch TD 0.2 mg QWEEK ROCIO Administration Enoxaparin Sodium 40 mg 08/07/18 22:00 08/09/18 22:15 Lovenox SUB-Q 40 mg QDAY@2200 ROCIO Administration Glycerin 1 supp 08/09/18 11:14 Glycerin Adult 2 Gm AL QDAY PRN Constipation Hydralazine HCl 10 mg 08/07/18 09:06 08/08/18 12:34 Apresoline IV 10 mg Q4HR PRN Administration Blood Pressure Hydromorphone HCl 0.5 mg 08/07/18 15:58 08/10/18 17:59 Dilaudid IV 0.5 mg Q4H PRN Administration Pain , Severe (7-10) Ceftriaxone Sodium 2 gm in 100 mls @ 200 mls/hr 08/07/18 11:00 08/10/18 10:59 Rocephin/Ns 2 Gm/100 Ml IV 200 mls/hr Q24HR ROCIO Administration Protocol Metronidazole 500 mg in 100 mls @ 100 mls/hr 08/07/18 14:00 08/10/18 13:32 Flagyl 500 Mg/100 Ml IV 100 mls/hr Q8HR ROCIO Administration Protocol Lisinopril 40 mg 08/11/18 10:00 Zestril PO QDAY [facility] Ondansetron HCl 4 mg 08/07/18 08:50 08/09/18 00:56 Zofran IV 4 mg Q8H PRN Administration Nausea And Vomiting Oxycodone/Acetaminophen 2 tab 08/09/18 12:48 08/10/18 20:00 Percocet 5/325 PO 2 tab Q4H PRN Administration Pain, Moderate (4-6) Pantoprazole Sodium 40 mg 08/09/18 10:00 08/10/18 11:01 Protonix PO 40 mg DAILY ROCIO Administration Psyllium Hydrophilic Mucilloid 1 each 08/10/18 10:00 08/10/18 11:03 Metamucil PO 1 each QDAY [facility]IO Administration Sodium Chloride 10 ml 08/07/18 10:00 08/10/18 11:09 Sodium Chloride Flush Syringe 10 Ml IV 10 ml BID ROCIO Administration Sodium Chloride 10 ml 08/07/18 08:50 Sodium Chloride Flush Syringe 10 Ml IV PRN PRN LINE FLUSH Thiamine HCl 100 mg 08/09/18 10:00 08/10/18 11:00 Vitamin B-1 PO 100 mg QDAY ROCIO Administration Triamterene/HCTZ 1 each 08/09/18 10:00 08/10/18 11:01 Maxzide-25 PO 1 each QAM ROCIO Administration
[2018-08-08] MEDS: ROCEPHIN/NS 2 GM/100 ML 2 GM/100 ML BAG IV SCH (09:07)
[2018-08-08] MEDS: SODIUM CHLORIDE FLUSH SYRINGE 10 ML IV SCH ×2 (10:01→21:56)
--- NOTE | 2018-08-08 10:22 | Progress Note ---
Assessment and Plan Cultures: 08/07/2018 Blood: no growth to date A/P: 48 year old male with a past medical history of diverticulitis, significant tobacco abuse that presents to the ED on 08/07/18 with a chief complaint of diffuse abdominal pain for the last 1-2 days. This patient is known to ID service from a previous admission on 06/17/18 with complaints of severe abdominal pain. A that time, CT of abdomen and pelvis with contrast revealed diverticulitis in the descending colon and sigmoid colon. Repeat imaging on 06/24/18 revealed worsening diverticulitis seen in the distal descending colon. Small abscess suspected adjacent to the distal sigmoid colon versus a fluid- filled diverticulum. He was treated conservatively until discharge on 06/23/18. Now admitted with: 1. Sepsis on admission: now resolved, secondary to generalized colonic diverticulitis. CT of abdomen and pelvis today shows mild inflammatory changes in the descending and sigmoid colon compatible some combination of chronic and/or acute diverticulitis changes. No evidence of perforation or abscess. No fever. U/A without pyuria. Blood cultures in progress. CRP 9.20. Surgery to treat conservatively, No urgent surgical intervention is required at this time. Currently being treated with ceftriaxone and flagyl. 2. Tobacco abuse: discussion regarding smoking cessation Plan: -f/u Blood cultures -Continue Ceftriaxone and Flagyl, D2 -Anticipate discharge on levofloxacin 750mg PO QD and Flagyl 500mg PO every 8 hours for total 10 days ending 08-16-18 [facility] M: [phone] O:[phone] Subjective Date of service: 08/08/18 Interval history: Patient seen and examined. Complains of abdominal pain, improved from yesterday 08/16. No fevers. Objective - Exam Narrative Exam: Constitutional: Alert, cooperative. Acute distress, abdominal pain 08/16 Head, Ears, Nose: Normocephalic, atraumatic. External ears, nose normal Eyes: Conjunctivae/corneas clear. No icterus. No ptosis. Neck: Supple, no meningeal signs Oral: dentition fair, multiple fillings, no thrush Cardiovascular: S1, S2 normal. Respiratory: Good air entry, clear to auscultation bilaterally GI: Soft, diffuse tenderness; bowel sounds + Musculoskeletal: No pedal edema, no cyanosis. Skin: No rash or abscess Hem/Lymphatic: No palpable cervical or supraclavicular nodes. No lymphangitis Psych: Mood ok. Affect normal Neurological: Awake, alert, oriented. No gross abnormality - Constitutional Vitals: Vital Signs Temp Pulse Resp BP Pulse Ox 98.4 F 73 20 154/101 96 08/08/18 05:37 08/08/18 05:37 08/08/18 05:37 08/08/18 05:37 08/08/18 05:37 Temperature -Last 24 Hours Temperature 98.4 F Temperature 98.4 F Temperature 98.2 F Temperature 98.7 F - Labs CBC & Chem 7: 08/08/18 05:40 08/08/18 05:40 Labs: Abnormal lab results 08/07/18 08/08/18 08/08/18 Range/Units 20:27 05:40 05:40 [place] % (Auto) 10.2 H (0.0-7.3) % [place] # 1.0 H (0.0-0.8) K/mm3 Seg Neutrophils % 73.0 H (40.0-70.0) % Sodium 135 L (137-145) mmol/L Chloride 96.4 L (98-107) mmol/L BUN 6 L (9-20) mg/dL Creatinine 0.7 L (0.8-1.5) mg/dL C-Reactive Protein 9.20 H (0.00-1.30) mg/dL
--- NOTE | 2018-08-08 12:47 | Progress Note ---
Assessment and Plan - Patient Problems (1) Acute diverticulitis Current Visit: Yes Status: Acute Plan to address problem: Pt stable. WBC normal and pain slightly improved. Pt and still need time to decide on surgery. Will ultimately have them come to office after discharge to finalize plan is they decide to have surgery. No surgical intervention needed at this time. Please call with questions. time=10min Subjective Date of service: 08/08/18 Patient Reports: Positive: no new complaints, pain is less. Negative: nausea, vomiting Objective Vital Signs - 12hr 08/08/18 08/08/18 08/08/18 05:37 12:08 12:34 Temperature 98.4 F 98.3 F Pulse Rate 73 76 76 Respiratory 20 18 Rate Blood Pressure 154/101 190/116 190/116 O2 Sat by Pulse 96 95 Oximetry - General physical appearance no distress, no pain - Eyes normal occular movement - Respiratory normal expansion, normal respiratory effort - Abdomen soft, tender (in LLQ and mid abdomen), not distended, not guarding, not rigid - Integumentary no rash, no growths, no abnormal pigmentation - Psychiatric oriented to time, oriented to person, oriented to place, speech is normal, memory intact - Labs 08/08/18 05:40 08/08/18 05:40 Diabetes panel 08/08/18 Range/Units 05:40 Sodium 135 L (137-145) mmol/L Potassium 4.1 (3.6-5.0) mmol/L Chloride 96.4 L (98-107) mmol/L Carbon Dioxide 26 (22-30) mmol/L BUN 6 L (9-20) mg/dL Creatinine 0.7 L (0.8-1.5) mg/dL Glucose 86 (75-100) mg/dL Calcium 9.0 (8.4-10.2) mg/dL Calcium panel 08/08/18 Range/Units 05:40 Calcium 9.0 (8.4-10.2) mg/dL Pituitary panel 08/08/18 Range/Units 05:40 Sodium 135 L (137-145) mmol/L Potassium 4.1 (3.6-5.0) mmol/L Chloride 96.4 L (98-107) mmol/L Carbon Dioxide 26 (22-30) mmol/L BUN 6 L (9-20) mg/dL Creatinine 0.7 L (0.8-1.5) mg/dL Glucose 86 (75-100) mg/dL Calcium 9.0 (8.4-10.2) mg/dL Adrenal panel 08/08/18 Range/Units 05:40 Sodium 135 L (137-145) mmol/L Potassium 4.1 (3.6-5.0) mmol/L Chloride 96.4 L (98-107) mmol/L Carbon Dioxide 26 (22-30) mmol/L BUN 6 L (9-20) mg/dL Creatinine 0.7 L (0.8-1.5) mg/dL Glucose 86 (75-100) mg/dL Calcium 9.0 (8.4-10.2) mg/dL
--- NOTE | 2018-08-08 14:29 | Gastroenterology Progress Note ---
<TOBY MCKEON - Last Filed: 08/08/18 14:31> Assessment and Plan 1.recurrent diverticulitis (uncomplicated; initial episode in 2013 and last episode 06/2018) -afebrile -WBC 9.7-trended down -H/H WNL-no active signs of bleeding -CT scan showed chronic +/- acute diverticulitis w/o perforation or abscess -clinically, patient reports abd pain improving. No N/V. Tolerating clears. -continue clears-advance diet per surgery recommendations -continue antibiotics (per ID recommendations) and supportive care -recommend patient f/u in clinic upon discharge (on antibiotics) in 2-3 weeks to schedule outpatient colonoscopy (in approximately 4-6 weeks) for further evaluation (r/o neoplasm) once diverticulitis has resolved -need for f/u in clinic discussed with patient with understanding voiced-office card/information given to patient -no further recommendations at this time per GI standpoint-further management per surgery -will sign off, please call if needed Subjective Date of service: 08/08/18 Principal diagnosis: diverticulitis Interval history: No acute distress. Reports abd pain now improving. No N/v. Objective - Constitutional Vitals: Temp Pulse Resp BP Pulse Ox 98.3 F 76 18 190/116 95 08/08/18 12:08 08/08/18 12:34 08/08/18 12:08 08/08/18 12:34 08/08/18 12:08 General appearance: no acute distress - Respiratory Respiratory: bilateral: CTA - Cardiovascular Rhythm: regular - Gastrointestinal General gastrointestinal: Present: soft, tender (LLQ), non-distended, normal bowel sounds - Neurologic Neurological: alert and oriented x3 - Labs CBC & Chem 7: 08/08/18 05:40 08/08/18 05:40 Labs: Laboratory Results - last 24 hr 08/07/18 08/08/18 08/08/18 20:27 05:40 05:40 WBC 9.7 RBC 4.15 Hgb 12.8 Hct 37.5 MCV 90 MCH 31 MCHC 34 RDW 14.0 Plt Count 414 Lymph % (Auto) 15.0 [place] % (Auto) 10.2 H Eos % (Auto) 1.3 Baso % (Auto) 0.5 Lymph # 1.5 [place] # 1.0 H Eos # 0.1 Baso # 0.1 Seg Neutrophils % 73.0 H Seg Neutrophils # 7.1 Sodium 135 L Potassium 4.1 Chloride 96.4 L Carbon Dioxide 26 Anion Gap 17 BUN 6 L Creatinine 0.7 L Estimated GFR > 60 BUN/Creatinine Ratio 9 Glucose 86 Calcium 9.0 C-Reactive Protein 9.20 H <GAVIOTA CELAYA R - Last Filed: 08/09/18 13:48> Assessment and Plan Pt seen and examined on 08/08. Plan discussed, and likely D/C on 08/09 on oral abx if continues to improve. Objective - Constitutional Vitals: Temp Pulse Resp BP Pulse Ox 98.9 F 67 18 158/105 93 08/09/18 12:10 08/09/18 12:10 08/09/18 12:10 08/09/18 12:10 08/09/18 12:10 - Labs CBC & Chem 7: 08/09/18 04:50 08/09/18 04:50 Labs: Laboratory Results - last 24 hr 08/09/18 08/09/18 04:50 04:50 WBC 7.1 RBC 4.14 Hgb 12.6 Hct 37.2 MCV 90 MCH 31 MCHC 34 RDW 14.5 Plt Count 429 Lymph % (Auto) 19.3 [place] % (Auto) 10.1 H Eos % (Auto) 2.1 Baso % (Auto) 1.4 Lymph # 1.4 [place] # 0.7 Eos # 0.2 Baso # 0.1 Seg Neutrophils % 67.1 Seg Neutrophils # 4.7 Sodium 135 L Potassium 4.1 Chloride 100.4 Carbon Dioxide 24 Anion Gap 15 BUN 7 L Creatinine 0.7 L Estimated GFR > 60 BUN/Creatinine Ratio 10 Glucose 91 Calcium 8.6
[2018-08-08] MEDS ORDERED: HYDROCHLOROTHIAZID PO SCH (15:30)
[2018-08-08] MEDS ORDERED: TRIAMTERENE PO SCH (15:30)
[2018-08-08] MEDS: ZESTRIL PO SCH (18:22)
[2018-08-08] MEDS: LOVENOX SUB-Q SCH (21:55)
[2018-08-09] MEDS: NORCO 10/325 PO PRN ×2 (00:07→08:25)
[2018-08-09] MEDS: ZOFRAN IV PRN (00:56)
[2018-08-09] MEDS: DILAUDID IV PRN ×5 (02:11→22:13)
[2018-08-09] MEDS: NACL 0.9% 1000 ML 1,000 ML IV SCH ×2 (03:51→20:40)
[2018-08-09 05:01] LABS: Basophils # (Auto) 0.1 K/mm3 (0.0-0.1); Basophils % (Auto) 1.4 % (0.0-1.8); Eosinophils # (Auto) 0.2 K/mm3 (0.0-0.4); Eosinophils % (Auto) 2.1 % (0.0-4.3); Hematocrit 37.2 % (35.5-45.6); Hemoglobin 12.6 gm/dl (11.8-15.2); Lymphocytes # (Auto) 1.4 K/mm3 (1.2-5.4); Lymphocytes % (Auto) 19.3 % (13.4-35.0); Mean Corpuscular HGB Conc 34 % (32-34); Mean Corpuscular Volume 90 fl (84-94); Monocytes # (Auto) 0.7 K/mm3 (0.0-0.8); Monocytes % (Auto) 10.1 % (0.0-7.3); Platelet Count 429 K/mm3 (140-440); Red Blood Count 4.14 M/mm3 (3.65-5.03); Red Cell Distribution Width 14.5 % (13.2-15.2)
[2018-08-09 05:21] LABS: BUN/Creatinine Ratio 10; Blood Urea Nitrogen 7 mg/dL (9-20); Calcium 8.6 mg/dL (8.4-10.2); Hemolysis Index 1
[2018-08-09] MEDS: FLAGYL 500 MG/100 ML 500 MG/100 ML BAG IV SCH ×3 (05:54→22:11)
--- NOTE | 2018-08-09 09:54 | Progress Note ---
<LAVONNE SINGH - Last Filed: 08/09/18 13:47> Assessment and Plan Assessment and plan: 48-year-old -[place] male with history of hypertension and diverticulitis who presented to [facility] ED with complaints of recurrent sharp abdominal pain for the past 2 days which progressively worsened overnight.CT abd and pelvis shows Mild inflammatory changes in the descending and sigmoid colon compatible some combination of chronic and/or acute diverticulitis changes; No evidence of perforation or abscess; Generalized colonic diverticulosis. Pt admitted to Medical floor. Diverticulitis- recurrent Sepsis- secondary to diverticulitis Leukocytosis Acute Pain Hypertensive urgency HTN Tobacco abuse ETOH abuse Constipation Plan: Continue IV Ceftriaxone and Flagyl; with plans to discharge on po levofloxacin 750mg daily and Flagyl 500mg q8hr to end 08/16/18 Monitor BP Continue IV hydralazine PRN Continue clondine 0.2mg patch Continue home meds: HCTZ 37.5mg daily Change to Lisinopril 20mg daily for better BP control Unable to tolerate clear diet; will make NPO with sips of water and ice chips Continue NS @100 ml/hr Continue Pain mgmt Monitor CBC Per Gen Surg will need elective partial colectomy as outpatient when inflammation has improved. pt will need to follow up with Dr. Hutchins as outpt if he decides to proceed with surgery GI following and recommends patient f/u in clinic upon discharge in 2-3 weeks to schedule outpatient colonoscopy (in approximately 4-6 weeks) for further evaluation (r/o neoplasm) once diverticulitis has resolved Consult ID following recommendations appreciated Continue to encourage and family life counselor for tobacco cessation and ETOH abuse Order glycerine suppository prn for constipation DVT PPX Lovenox History Interval history: Mr. Potts is seen today on the Medical floor. He states that his abdominal pain has slightly increased, since he ate last night. He remains on NS @100ml/hr. Also he is c/o constipation. He denies dyspnea, nausea, vomiting, diarrhea, or any more episodes of bright red blood in stool. Hospitalist Physical - Physical exam Narrative exam: EENT Eyes: Present: PERRL, EOM intact ENT: clear oral mucosa, dentition normal - Neck Neck: Present: supple, normal ROM - Respiratory Respiratory effort: normal Respiratory: bilateral: CTA - Cardiovascular Heart rate: 79 (bpm) Rhythm: regular Heart Sounds: Present: S1 & S2 - Extremities Extremities: no ischemia, pulses intact, pulses symmetrical - Abdominal General gastrointestinal: Present: tender, active Localized gastrointestinal: tender: diffuse, guarding: diffuse Male genitourinary: Present: deferred - Rectal Rectal Exam: deferred - Integumentary Integumentary: Present: warm, dry - Musculoskeletal Musculoskeletal: strength equal bilaterally - Psychiatric Psychiatric: appropriate mood/affect, cooperative - Neurologic Neurologic: CNII-XII intact, moves all extremities - Constitutional Vitals: Temp Pulse Resp BP Pulse Ox 98.4 F 78 17 158/100 97 08/09/18 05:00 08/09/18 05:00 08/09/18 06:35 08/09/18 05:00 08/09/18 05:00 General appearance: Present: mild distress Results - Labs CBC & Chem 7: 08/09/18 04:50 08/09/18 04:50 Labs: Laboratory Last Values WBC 7.1 K/mm3 (4.5-11.0) 08/09/18 04:50 RBC 4.14 M/mm3 (3.65-5.03) 08/09/18 04:50 Hgb 12.6 gm/dl (11.8-15.2) 08/09/18 04:50 Hct 37.2 % (35.5-45.6) 08/09/18 04:50 MCV 90 fl (84-94) 08/09/18 04:50 MCH 31 pg (28-32) 08/09/18 04:50 MCHC 34 % (32-34) 08/09/18 04:50 RDW 14.5 % (13.2-15.2) 08/09/18 04:50 Plt Count 429 K/mm3 (140-440) 08/09/18 04:50 Lymph % (Auto) 19.3 % (13.4-35.0) 08/09/18 04:50 [place] % (Auto) 10.1 % (0.0-7.3) H 08/09/18 04:50 Eos % (Auto) 2.1 % (0.0-4.3) 08/09/18 04:50 Baso % (Auto) 1.4 % (0.0-1.8) 08/09/18 04:50 Lymph # 1.4 K/mm3 (1.2-5.4) 08/09/18 04:50 [place] # 0.7 K/mm3 (0.0-0.8) 08/09/18 04:50 Eos # 0.2 K/mm3 (0.0-0.4) 08/09/18 04:50 Baso # 0.1 K/mm3 (0.0-0.1) 08/09/18 04:50 Seg Neutrophils % 67.1 % (40.0-70.0) 08/09/18 04:50 Seg Neutrophils # 4.7 K/mm3 (1.8-7.7) 08/09/18 04:50 Sodium 135 mmol/L (137-145) L 08/09/18 04:50 Potassium 4.1 mmol/L (3.6-5.0) 08/09/18 04:50 Chloride 100.4 mmol/L (98-107) 08/09/18 04:50 Carbon Dioxide 24 mmol/L (22-30) 08/09/18 04:50 Anion Gap 15 mmol/L 08/09/18 04:50 BUN 7 mg/dL (9-20) L 08/09/18 04:50 Creatinine 0.7 mg/dL (0.8-1.5) L 08/09/18 04:50 Estimated GFR > 60 ml/min 08/09/18 04:50 BUN/Creatinine Ratio 10 % 08/09/18 04:50 Glucose 91 mg/dL (75-100) 08/09/18 04:50 Lactic Acid 0.70 mmol/L (0.7-2.0) 08/07/18 06:40 Calcium 8.6 mg/dL (8.4-10.2) 08/09/18 04:50 Total Bilirubin 0.70 mg/dL (0.1-1.2) 08/07/18 04:20 AST 13 units/L (5-40) 08/07/18 04:20 ALT 16 units/L (7-56) 08/07/18 04:20 Alkaline Phosphatase 71 units/L (35-129) 08/07/18 04:20 C-Reactive Protein 9.20 mg/dL (0.00-1.30) H 08/07/18 20:27 Total Protein 7.1 g/dL (6.3-8.2) 08/07/18 04:20 Albumin 4.2 g/dL (3.9-5) 08/07/18 04:20 Albumin/Globulin Ratio 1.4 % 08/07/18 04:20 Lipase 57 units/L (13-60) 08/07/18 04:20 Urine Color Yellow (Yellow) 08/07/18 06:00 Urine Turbidity Clear (Clear) 08/07/18 06:00 Urine pH 8.0 (5.0-7.0) H 08/07/18 06:00 Ur Specific [place] 1.027 (1.003-1.030) 08/07/18 06:00 Urine Protein <15 mg/dl mg/dL (Negative) 08/07/18 06:00 Urine Glucose (UA) Neg mg/dL (Negative) 08/07/18 06:00 Urine Ketones Neg mg/dL (Negative) 08/07/18 06:00 Urine Blood Neg (Negative) 08/07/18 06:00 Urine Nitrite Neg (Negative) 08/07/18 06:00 Urine Bilirubin Neg (Negative) 08/07/18 06:00 Urine Urobilinogen 2.0 mg/dL (<2.0) 08/07/18 06:00 Ur Leukocyte Esterase Neg (Negative) 08/07/18 06:00 Urine WBC (Auto) < 1.0 /HPF (0.0-6.0) 08/07/18 06:00 Urine RBC (Auto) 2.0 /HPF (0.0-6.0) 08/07/18 06:00 Urine Mucus Few /HPF 08/07/18 06:00 Active Medications - Current Medications Current Medications: Generic Name Dose Route Start Last Admin Trade Name Freq PRN Reason Stop Dose Admin Acetaminophen 650 mg 08/07/18 08:50 Tylenol PO Q4H PRN Pain MILD(1-3)/Fever >100.5/[place] Acetaminophen/Hydrocodone Bitart 1 each 08/07/18 15:58 08/09/18 08:25 [place] 10/325 PO 1 each Q6H PRN Administration Pain, Moderate (4-6) Clonidine HCl 0.2 mg 08/07/18 11:00 08/07/18 11:52 Catapres-Tts Patch TD 0.2 mg QWEEK ROCIO Administration Enoxaparin Sodium 40 mg 08/07/18 22:00 08/08/18 21:55 Lovenox SUB-Q 40 mg QDAY@2200 ROCIO Administration Hydralazine HCl 10 mg 08/07/18 09:06 08/08/18 12:34 Apresoline IV 10 mg Q4HR PRN Administration Blood Pressure Hydromorphone HCl 0.5 mg 08/07/18 15:58 08/09/18 06:05 Dilaudid IV 0.5 mg Q4H PRN Administration Pain , Severe (7-10) Sodium Chloride 1,000 mls @ 100 mls/hr 08/07/18 09:00 08/09/18 03:51 Nacl 0.9% 1000 Ml IV 100 mls/hr DIRECT ROCIO Administration Ceftriaxone Sodium 2 gm in 100 mls @ 200 mls/hr 08/07/18 11:00 08/08/18 09:07 Rocephin/Ns 2 Gm/100 Ml IV 200 mls/hr Q24HR ROCIO Administration Protocol Metronidazole 500 mg in 100 mls @ 100 mls/hr 08/07/18 14:00 08/09/18 05:54 Flagyl 500 Mg/100 Ml IV 100 mls/hr Q8HR RCOIO Administration Protocol Lisinopril 10 mg 08/08/18 16:00 08/08/18 18:22 Zestril PO 10 mg QDAY ROCIO Administration Ondansetron HCl 4 mg 08/07/18 08:50 08/09/18 00:56 Zofran IV 4 mg Q8H PRN Administration Nausea And Vomiting Pantoprazole Sodium 40 mg 08/09/18 10:00 Protonix PO DAILY ROCIO Sodium Chloride 10 ml 08/07/18 10:00 08/08/18 21:56 Sodium Chloride Flush Syringe 10 Ml IV 10 ml BID ROCIO Administration Sodium Chloride 10 ml 08/07/18 08:50 Sodium Chloride Flush Syringe 10 Ml IV PRN PRN LINE FLUSH Thiamine HCl 100 mg 08/09/18 10:00 Vitamin B-1 PO QDAY ROCIO Triamterene/HCTZ 1 each 08/09/18 10:00 Maxzide-25 PO QAM ROCIO <ORLIN MOORE M - Last Filed: 08/11/18 22:09> Assessment and Plan Assessment and plan: I saw and evaluated the patient. I agree with the findings and the plan of care as documented in the Nurse Practitioner's~note, with the following corrections and additions. cont abx, advance diet as tolerated, GS and GI input appreciated Hospitalist Physical - Constitutional Vitals: Temp Pulse Resp BP Pulse Ox 98.2 F 75 20 144/85 96 08/11/18 11:41 08/11/18 11:41 08/11/18 11:41 08/11/18 11:41 08/11/18 11:41 Results - Labs CBC & Chem 7: 08/09/18 04:50 08/09/18 04:50 Labs: Laboratory Last Values WBC 7.1 K/mm3 (4.5-11.0) 08/09/18 04:50 RBC 4.14 M/mm3 (3.65-5.03) 08/09/18 04:50 Hgb 12.6 gm/dl (11.8-15.2) 08/09/18 04:50 Hct 37.2 % (35.5-45.6) 08/09/18 04:50 MCV 90 fl (84-94) 08/09/18 04:50 MCH 31 pg (28-32) 08/09/18 04:50 MCHC 34 % (32-34) 08/09/18 04:50 RDW 14.5 % (13.2-15.2) 08/09/18 04:50 Plt Count 429 K/mm3 (140-440) 08/09/18 04:50 Lymph % (Auto) 19.3 % (13.4-35.0) 08/09/18 04:50 [place] % (Auto) 10.1 % (0.0-7.3) H 08/09/18 04:50 Eos % (Auto) 2.1 % (0.0-4.3) 08/09/18 04:50 Baso % (Auto) 1.4 % (0.0-1.8) 08/09/18 04:50 Lymph # 1.4 K/mm3 (1.2-5.4) 08/09/18 04:50 [place] # 0.7 K/mm3 (0.0-0.8) 08/09/18 04:50 Eos # 0.2 K/mm3 (0.0-0.4) 08/09/18 04:50 Baso # 0.1 K/mm3 (0.0-0.1) 08/09/18 04:50 Seg Neutrophils % 67.1 % (40.0-70.0) 08/09/18 04:50 Seg Neutrophils # 4.7 K/mm3 (1.8-7.7) 08/09/18 04:50 Sodium 135 mmol/L (137-145) L 08/09/18 04:50 Potassium 4.1 mmol/L (3.6-5.0) 08/09/18 04:50 Chloride 100.4 mmol/L (98-107) 08/09/18 04:50 Carbon Dioxide 24 mmol/L (22-30) 08/09/18 04:50 Anion Gap 15 mmol/L 08/09/18 04:50 BUN 7 mg/dL (9-20) L 08/09/18 04:50 Creatinine 0.7 mg/dL (0.8-1.5) L 08/09/18 04:50 Estimated GFR > 60 ml/min 08/09/18 04:50 BUN/Creatinine Ratio 10 % 08/09/18 04:50 Glucose 91 mg/dL (75-100) 08/09/18 04:50 Lactic Acid 0.70 mmol/L (0.7-2.0) 08/07/18 06:40 Calcium 8.6 mg/dL (8.4-10.2) 08/09/18 04:50 Total Bilirubin 0.70 mg/dL (0.1-1.2) 08/07/18 04:20 AST 13 units/L (5-40) 08/07/18 04:20 ALT 16 units/L (7-56) 08/07/18 04:20 Alkaline Phosphatase 71 units/L (35-129) 08/07/18 04:20 C-Reactive Protein 9.20 mg/dL (0.00-1.30) H 08/07/18 20:27 Total Protein 7.1 g/dL (6.3-8.2) 08/07/18 04:20 Albumin 4.2 g/dL (3.9-5) 08/07/18 04:20 Albumin/Globulin Ratio 1.4 % 08/07/18 04:20 Lipase 57 units/L (13-60) 08/07/18 04:20 Urine Color Yellow (Yellow) 08/07/18 06:00 Urine Turbidity Clear (Clear) 08/07/18 06:00 Urine pH 8.0 (5.0-7.0) H 08/07/18 06:00 Ur Specific [place] 1.027 (1.003-1.030) 08/07/18 06:00 Urine Protein <15 mg/dl mg/dL (Negative) 08/07/18 06:00 Urine Glucose (UA) Neg mg/dL (Negative) 08/07/18 06:00 Urine Ketones Neg mg/dL (Negative) 08/07/18 06:00 Urine Blood Neg (Negative) 08/07/18 06:00 Urine Nitrite Neg (Negative) 08/07/18 06:00 Urine Bilirubin Neg (Negative) 08/07/18 06:00 Urine Urobilinogen 2.0 mg/dL (<2.0) 08/07/18 06:00 Ur Leukocyte Esterase Neg (Negative) 08/07/18 06:00 Urine WBC (Auto) < 1.0 /HPF (0.0-6.0) 08/07/18 06:00 Urine RBC (Auto) 2.0 /HPF (0.0-6.0) 08/07/18 06:00 Urine Mucus Few /HPF 08/07/18 06:00 Active Medications - Current Medications Current Medications: Generic Name Dose Route Start Last Admin Trade Name Freq PRN Reason Stop Dose Admin Acetaminophen 650 mg 08/07/18 08:50 Tylenol PO Q4H PRN Pain MILD(1-3)/Fever >100.5/[place] Acetaminophen/Hydrocodone Bitart 1 each 08/07/18 15:58 08/09/18 08:25 [place] 10/325 PO 1 each Q6H PRN Administration Pain, Moderate (4-6) Al Hydrox/Mg Hydrox/Simethicone 30 ml 08/10/18 15:30 08/11/18 15:34 Alum-Mag Hydrox-Simeth [id number]/5ml PO 30 ml Q4H PRN Administration Indigestion Clonidine HCl 0.2 mg 08/07/18 11:00 08/07/18 11:52 Catapres-Tts Patch TD 0.2 mg QWEEK ROCIO Administration Enoxaparin Sodium 40 mg 08/07/18 22:00 08/11/18 21:19 Lovenox SUB-Q 40 mg QDAY@2200 ROCIO Administration Glycerin 1 supp 08/09/18 11:14 Glycerin Adult 2 Gm [place] QDAY PRN Constipation Hydralazine HCl 10 mg 08/07/18 09:06 08/08/18 12:34 Apresoline IV 10 mg Q4HR PRN Administration Blood Pressure Hydromorphone HCl 0.5 mg 08/07/18 15:58 08/11/18 22:02 Dilaudid IV 0.5 mg Q4H PRN Administration Pain , Severe (7-10) Ceftriaxone Sodium 2 gm in 100 mls @ 200 mls/hr 08/07/18 11:00 08/11/18 11:11 Rocephin/Ns 2 Gm/100 Ml IV 200 mls/hr Q24HR ROCIO Administration Protocol Metronidazole 500 mg in 100 mls @ 100 mls/hr 08/07/18 14:00 08/11/18 21:19 Flagyl 500 Mg/100 Ml IV 100 mls/hr Q8HR ROCIO Administration Protocol Lisinopril 40 mg 08/11/18 10:00 08/11/18 11:13 Zestril PO 40 mg QDAY ROCIO Administration Ondansetron HCl 4 mg 08/07/18 08:50 08/09/18 00:56 Zofran IV 4 mg Q8H PRN Administration Nausea And Vomiting Oxycodone/Acetaminophen 2 tab 08/09/18 12:48 08/11/18 17:51 Percocet 5/325 PO 2 tab Q4H PRN Administration Pain, Moderate (4-6) Pantoprazole Sodium 40 mg 08/09/18 10:00 08/11/18 11:13 Protonix PO 40 mg DAILY ROCIO Administration Psyllium Hydrophilic Mucilloid 1 each 08/10/18 10:00 08/11/18 11:13 Metamucil PO 1 each QDAY ROCIO Administration Sodium Chloride 10 ml 08/07/18 10:00 08/11/18 21:19 Sodium Chloride Flush Syringe 10 Ml IV 10 ml BID ROCIO Administration Sodium Chloride 10 ml 08/07/18 08:50 Sodium Chloride Flush Syringe 10 Ml IV PRN PRN LINE FLUSH Thiamine HCl 100 mg 08/09/18 10:00 08/11/18 11:14 Vitamin B-1 PO 100 mg QDAY ROCIO Administration Triamterene/HCTZ 1 each 08/09/18 10:00 08/11/18 11:11 Maxzide-25 PO 1 each QAM ROCIO Administration
[2018-08-09] MEDS: ROCEPHIN/NS 2 GM/100 ML 2 GM/100 ML BAG IV SCH (10:08)
[2018-08-09] MEDS: PROTONIX PO SCH (10:09)
[2018-08-09] MEDS: VITAMIN B-1 PO SCH (10:09)
[2018-08-09] MEDS: SODIUM CHLORIDE FLUSH SYRINGE 10 ML IV SCH ×2 (10:18→22:15)
[2018-08-09] MEDS: ZESTRIL PO SCH (10:18)
[2018-08-09] MEDS: MAXZIDE-25 PO SCH (10:19)
--- NOTE | 2018-08-09 10:22 | Progress Note ---
Assessment and Plan Cultures: 08/07/2018 Blood: no growth to date 08/07/2018 MRSA PCR; negative A/P: 48 year old male with a past medical history of diverticulitis, significant tobacco abuse that presents to the ED on 08/07/18 with a chief complaint of diffuse abdominal pain for the last 1-2 days. This patient is known to ID service from a previous admission on 06/17/18 with complaints of severe abdominal pain. A that time, CT of abdomen and pelvis with contrast revealed diverticulitis in the descending colon and sigmoid colon. Repeat imaging on 06/24/18 revealed worsening diverticulitis seen in the distal descending colon. Small abscess suspected adjacent to the distal sigmoid colon versus a fluid- filled diverticulum. He was treated conservatively until discharge on 06/23/18. Now admitted with: 1. Sepsis on admission: now resolved, secondary to generalized colonic diverticulitis. CT of abdomen and pelvis today shows mild inflammatory changes in the descending and sigmoid colon compatible some combination of chronic and/or acute diverticulitis changes. No evidence of perforation or abscess. No fever. U/A without pyuria. Blood cultures in progress. CRP 9.20. Surgery to treat conservatively, No urgent surgical intervention is required at this time. Currently being treated with ceftriaxone and flagyl. 2. Tobacco abuse: discussion regarding smoking cessation Plan: -f/u Blood cultures -Continue Ceftriaxone and Flagyl, D3 -Anticipate discharge on levofloxacin 750mg PO QD and Flagyl 500mg PO every 8 hours for total 10 days ending 08-16-18 Dr. Jennings will be chronic specialist this weekend. Please call [phone] for questions. Janette Hernandez NP [facility] M: [phone] O:[phone] Subjective Date of service: 08/09/18 Principal diagnosis: diverticulitis Interval history: Patient seen and examined. Complains of increased abdominal pain when drinking clears. No fevers. Objective - Exam Narrative Exam: Constitutional: Alert, cooperative. Acute distress, abdominal pain 8/10 Head, Ears, Nose: Normocephalic, atraumatic. External ears, nose normal Eyes: Conjunctivae/corneas clear. No icterus. No ptosis. Neck: Supple, no meningeal signs Oral: dentition fair, multiple fillings, no thrush Cardiovascular: S1, S2 normal. Respiratory: Good air entry, clear to auscultation bilaterally GI: Soft, diffuse tenderness; bowel sounds + Musculoskeletal: No pedal edema, no cyanosis. Skin: No rash or abscess Hem/Lymphatic: No palpable cervical or supraclavicular nodes. No lymphangitis Psych: Mood ok. Affect normal Neurological: Awake, alert, oriented. No gross abnormality - Constitutional Vitals: Vital Signs Temp Pulse Resp BP Pulse Ox 98.4 F 78 17 153/97 97 08/09/18 05:00 08/09/18 05:00 08/09/18 06:35 08/09/18 10:18 08/09/18 05:00 Temperature -Last 24 Hours Temperature 98.4 F Temperature 98.4 F Temperature 99.2 F Temperature 98.3 F - Labs CBC & Chem 7: 08/09/18 04:50 08/09/18 04:50 Labs: Abnormal lab results 08/09/18 08/09/18 Range/Units 04:50 04:50 [place] % (Auto) 10.1 H (0.0-7.3) % Sodium 135 L (137-145) mmol/L BUN 7 L (9-20) mg/dL Creatinine 0.7 L (0.8-1.5) mg/dL
[2018-08-09] MEDS ORDERED: DULCOLAX PR PRN (11:00)
[2018-08-09] MEDS ORDERED: GLYCERIN ADULT 2 GM PR PRN (11:14)
[2018-08-09] MEDS ORDERED: GLYCERIN ADULT 2 GM PR ONE (12:30)
[2018-08-09] MEDS: PERCOCET 5/325 PO PRN ×2 (13:16→20:28)
[2018-08-09] MEDS ORDERED: ZESTRIL PO SCH (13:43)
[2018-08-09] MEDS ORDERED: ZESTRIL PO ONE (14:00)
[2018-08-09] MEDS: LOVENOX SUB-Q SCH (22:15)
[2018-08-10] MEDS: PERCOCET 5/325 PO PRN ×4 (02:41→20:00)
[2018-08-10] MEDS: DILAUDID IV PRN ×5 (04:44→21:56)
[2018-08-10] MEDS: FLAGYL 500 MG/100 ML 500 MG/100 ML BAG IV SCH ×3 (05:44→21:46)
--- NOTE | 2018-08-10 07:43 | Progress Note ---
Assessment and Plan - Patient Problems (1) Acute diverticulitis Current Visit: Yes Status: Acute Plan to address problem: Pt stable. WBC normal and pain improved. Pt wants to eat. He is feeling almost back to normal. We'll begin with full diet. Advance as tolerated. He confirmed that he disconnected the IV and left the floor without notifying anyone. I told him that this concerns me about offering him a big operation. It is critical that he follow the instructions around the time of surgery. Non- adherence to the perioperative instructions will increase his chances of getting a colostomy bag. His was present in the room during this discussion. They need to think very carefully if they are willing to follow the instructions for surgery. We will we address this issue if they come back to see us in the office for preoperative evaluation and scheduling. He will need to see Merrick ryan as an outpatient for colonoscopy before surgery. Please call with questions. time=10min Subjective Date of service: 08/10/18 Patient Reports: Positive: no new complaints, feels better, pain is less, flatus, no bowel movement. Negative: nausea, vomiting Objective Vital Signs - 12hr 08/09/18 22:00 Pulse Rate [ 75 Left Radial] Respiratory 20 Rate O2 Sat by Pulse 96 Oximetry - General physical appearance no distress, no pain, other (looks better) - Respiratory normal expansion, normal respiratory effort - Abdomen soft, tender (minimal in LLQ), not distended, not guarding, not rigid - Integumentary no rash, no growths, no abnormal pigmentation - Psychiatric oriented to time, oriented to person, oriented to place, speech is normal, memory intact - Labs 08/09/18 04:50 08/09/18 04:50
[2018-08-10] MEDS ORDERED: ZESTRIL PO SCH (10:00)
[2018-08-10] MEDS: ROCEPHIN/NS 2 GM/100 ML 2 GM/100 ML BAG IV SCH (10:59)
[2018-08-10] MEDS: VITAMIN B-1 PO SCH (11:00)
[2018-08-10] MEDS: MAXZIDE-25 PO SCH (11:01)
[2018-08-10] MEDS: PROTONIX PO SCH (11:01)
[2018-08-10] MEDS: METAMUCIL PO SCH (11:03)
--- NOTE | 2018-08-10 11:06 | Progress Note ---
Assessment and Plan Assessment and plan: 48-year-old -[place] male with history of hypertension and diverticulitis who presented to [facility] ED with complaints of recurrent sharp abdominal pain for the past 2 days which progressively worsened overnight.CT abd and pelvis shows Mild inflammatory changes in the descending and sigmoid colon compatible some combination of chronic and/or acute diverticulitis changes; No evidence of perforation or abscess; Generalized colonic diverticulosis. Pt admitted to Medical floor. Diverticulitis- recurrent Sepsis- secondary to diverticulitis Leukocytosis Acute Pain Hypertensive urgency HTN Tobacco abuse ETOH abuse Constipation Plan: Continue IV Ceftriaxone and Flagyl; with plans to discharge on po levofloxacin 750mg daily and Flagyl 500mg q8hr to end 08/16/18 Monitor BP Continue IV hydralazine PRN Continue clondine 0.2mg patch Continue home meds: HCTZ 37.5mg daily Change to Lisinopril 20mg daily for better BP control Unable to tolerate clear diet; will make NPO with sips of water and ice chips Continue NS @100 ml/hr Continue Pain mgmt Monitor CBC Per Gen Surg will need elective partial colectomy as outpatient when inflammation has improved. pt will need to follow up with Dr. Hutchins as outpt if he decides to proceed with surgery GI following and recommends patient f/u in clinic upon discharge in 2-3 weeks to schedule outpatient colonoscopy (in approximately 4-6 weeks) for further evaluation (r/o neoplasm) once diverticulitis has resolved Consult ID following recommendations appreciated Continue to encourage and preparole counseling aide for tobacco cessation and ETOH abuse cont glycerine suppository prn for constipation DVT PPX Lovenox History Interval history: Review of systems Constitutional: No fevers, no malaise, no joint pains CVS: No chest pain, no orthopnea, no dyspnea on exertion, no pedal edema GI: abdominal pain is improved, no diarrhea, no vomiting, no constipation Respiratory: No shortness of breath, no wheezing, no coughing Hospitalist Physical - Physical exam Narrative exam: General.: Appears well, no distress, nontoxic HEENT: Moist mucous membranes, extraocular muscles intact, no lymphadenopathy Neck: supple Cardiac: S1-S2 heard Lungs: clear to auscultation bilaterally Abdomen: soft , nontender, nondistended, bowel sounds positive Extremities: no edema clubbing or cyanosis Skin: no rash or lesions Neurologic: no gross focal deficits Psych: calm, and cooperative - Constitutional Vitals: Temp Pulse Resp BP Pulse Ox 98.1 F 76 16 148/96 94 08/10/18 05:12 08/10/18 05:12 08/10/18 05:12 08/10/18 05:12 08/10/18 05:12 General appearance: Present: mild distress Results - Labs CBC & Chem 7: 08/09/18 04:50 08/09/18 04:50 Labs: Laboratory Last Values WBC 7.1 K/mm3 (4.5-11.0) 08/09/18 04:50 RBC 4.14 M/mm3 (3.65-5.03) 08/09/18 04:50 Hgb 12.6 gm/dl (11.8-15.2) 08/09/18 04:50 Hct 37.2 % (35.5-45.6) 08/09/18 04:50 MCV 90 fl (84-94) 08/09/18 04:50 MCH 31 pg (28-32) 08/09/18 04:50 MCHC 34 % (32-34) 08/09/18 04:50 RDW 14.5 % (13.2-15.2) 08/09/18 04:50 Plt Count 429 K/mm3 (140-440) 08/09/18 04:50 Lymph % (Auto) 19.3 % (13.4-35.0) 08/09/18 04:50 [place] % (Auto) 10.1 % (0.0-7.3) H 08/09/18 04:50 Eos % (Auto) 2.1 % (0.0-4.3) 08/09/18 04:50 Baso % (Auto) 1.4 % (0.0-1.8) 08/09/18 04:50 Lymph # 1.4 K/mm3 (1.2-5.4) 08/09/18 04:50 [place] # 0.7 K/mm3 (0.0-0.8) 08/09/18 04:50 Eos # 0.2 K/mm3 (0.0-0.4) 08/09/18 04:50 Baso # 0.1 K/mm3 (0.0-0.1) 08/09/18 04:50 Seg Neutrophils % 67.1 % (40.0-70.0) 08/09/18 04:50 Seg Neutrophils # 4.7 K/mm3 (1.8-7.7) 08/09/18 04:50 Sodium 135 mmol/L (137-145) L 08/09/18 04:50 Potassium 4.1 mmol/L (3.6-5.0) 08/09/18 04:50 Chloride 100.4 mmol/L (98-107) 08/09/18 04:50 Carbon Dioxide 24 mmol/L (22-30) 08/09/18 04:50 Anion Gap 15 mmol/L 08/09/18 04:50 BUN 7 mg/dL (9-20) L 08/09/18 04:50 Creatinine 0.7 mg/dL (0.8-1.5) L 08/09/18 04:50 Estimated GFR > 60 ml/min 08/09/18 04:50 BUN/Creatinine Ratio 10 % 08/09/18 04:50 Glucose 91 mg/dL (75-100) 08/09/18 04:50 Lactic Acid 0.70 mmol/L (0.7-2.0) 08/07/18 06:40 Calcium 8.6 mg/dL (8.4-10.2) 08/09/18 04:50 Total Bilirubin 0.70 mg/dL (0.1-1.2) 08/07/18 04:20 AST 13 units/L (5-40) 08/07/18 04:20 ALT 16 units/L (7-56) 08/07/18 04:20 Alkaline Phosphatase 71 units/L (35-129) 08/07/18 04:20 C-Reactive Protein 9.20 mg/dL (0.00-1.30) H 08/07/18 20:27 Total Protein 7.1 g/dL (6.3-8.2) 08/07/18 04:20 Albumin 4.2 g/dL (3.9-5) 08/07/18 04:20 Albumin/Globulin Ratio 1.4 % 08/07/18 04:20 Lipase 57 units/L (13-60) 08/07/18 04:20 Urine Color Yellow (Yellow) 08/07/18 06:00 Urine Turbidity Clear (Clear) 08/07/18 06:00 Urine pH 8.0 (5.0-7.0) H 08/07/18 06:00 Ur Specific [place] 1.027 (1.003-1.030) 08/07/18 06:00 Urine Protein <15 mg/dl mg/dL (Negative) 08/07/18 06:00 Urine Glucose (UA) Neg mg/dL (Negative) 08/07/18 06:00 Urine Ketones Neg mg/dL (Negative) 08/07/18 06:00 Urine Blood Neg (Negative) 08/07/18 06:00 Urine Nitrite Neg (Negative) 08/07/18 06:00 Urine Bilirubin Neg (Negative) 08/07/18 06:00 Urine Urobilinogen 2.0 mg/dL (<2.0) 08/07/18 06:00 Ur Leukocyte Esterase Neg (Negative) 08/07/18 06:00 Urine WBC (Auto) < 1.0 /HPF (0.0-6.0) 08/07/18 06:00 Urine RBC (Auto) 2.0 /HPF (0.0-6.0) 08/07/18 06:00 Urine Mucus Few /HPF 08/07/18 06:00 Active Medications - Current Medications Current Medications: Generic Name Dose Route Start Last Admin Trade Name Freq PRN Reason Stop Dose Admin Acetaminophen 650 mg 08/07/18 08:50 Tylenol PO Q4H PRN Pain MILD(1-3)/Fever >100.5/[place] Acetaminophen/Hydrocodone Bitart 1 each 08/07/18 15:58 08/09/18 08:25 [place] 10/325 PO 1 each Q6H PRN Administration Pain, Moderate (4-6) Clonidine HCl 0.2 mg 08/07/18 11:00 08/07/18 11:52 Catapres-Tts Patch TD 0.2 mg QWEEK ROCIO Administration Enoxaparin Sodium 40 mg 08/07/18 22:00 08/09/18 22:15 Lovenox SUB-Q 40 mg QDAY@2200 ROCIO Administration Glycerin 1 supp 08/09/18 11:14 Glycerin Adult 2 Gm LA QDAY PRN Constipation Hydralazine HCl 10 mg 08/07/18 09:06 08/08/18 12:34 Apresoline IV 10 mg Q4HR PRN Administration Blood Pressure Hydromorphone HCl 0.5 mg 08/07/18 15:58 08/10/18 08:54 Dilaudid IV 0.5 mg Q4H PRN Administration Pain , Severe (7-10) Ceftriaxone Sodium 2 gm in 100 mls @ 200 mls/hr 08/07/18 11:00 08/09/18 10:08 Rocephin/Ns 2 Gm/100 Ml IV 200 mls/hr Q24HR ROCIO Administration Protocol Metronidazole 500 mg in 100 mls @ 100 mls/hr 08/07/18 14:00 08/10/18 05:44 Flagyl 500 Mg/100 Ml IV 100 mls/hr Q8HR ROCIO Administration Protocol Lisinopril 20 mg 08/10/18 10:00 Zestril PO QDAY ROCIO Ondansetron HCl 4 mg 08/07/18 08:50 08/09/18 00:56 Zofran IV 4 mg Q8H PRN Administration Nausea And Vomiting Oxycodone/Acetaminophen 2 tab 08/09/18 12:48 08/10/18 02:41 Percocet 5/325 PO 2 tab Q4H PRN Administration Pain, Moderate (4-6) Pantoprazole Sodium 40 mg 08/09/18 10:00 08/09/18 10:09 Protonix PO 40 mg DAILY ROCIO Administration Psyllium Hydrophilic Mucilloid 1 each 08/10/18 10:00 Metamucil PO QDAY ROCIO Sodium Chloride 10 ml 08/07/18 10:00 08/09/18 22:15 Sodium Chloride Flush Syringe 10 Ml IV 10 ml BID ROCIO Administration Sodium Chloride 10 ml 08/07/18 08:50 Sodium Chloride Flush Syringe 10 Ml IV PRN PRN LINE FLUSH Thiamine HCl 100 mg 08/09/18 10:00 08/09/18 10:09 Vitamin B-1 PO 100 mg QDAY ROCIO Administration Triamterene/HCTZ 1 each 08/09/18 10:00 08/09/18 10:19 Maxzide-25 PO 1 each QAM ROCIO Administration
[2018-08-10] MEDS: SODIUM CHLORIDE FLUSH SYRINGE 10 ML IV SCH ×2 (11:09→21:47)
[2018-08-10] MEDS ORDERED: ZESTRIL PO ONE ×2 (12:43→14:00)
[2018-08-10] MEDS: ALUM-MAG HYDROX-SIMETH 200-200-20MG/5ML PO PRN (15:18)
[2018-08-10] MEDS: LOVENOX SUB-Q SCH (21:46)
[2018-08-11] MEDS: PERCOCET 5/325 PO PRN ×3 (00:06→17:51)
[2018-08-11] MEDS: DILAUDID IV PRN ×3 (02:07→22:02)
[2018-08-11] MEDS: FLAGYL 500 MG/100 ML 500 MG/100 ML BAG IV SCH ×3 (05:44→21:19)
--- NOTE | 2018-08-11 08:36 | Progress Note ---
Assessment and Plan - Patient Problems (1) Acute diverticulitis Current Visit: Yes Status: Acute Plan to address problem: Pt stable. WBC normal and pain improved. Pt progressing well. Had some cramping o/n. Diet as tolerated. needs to have fiber supplementation daily Almost ready for discharge. Should be ready for discharge on oral Abx tomorrow. f/u with GI first in a few weeks. f/u with General Surgery after c-scope done. Please call with questions. time=10min Subjective Date of service: 08/11/18 Patient Reports: Positive: no new complaints, feels better, pain is less, t olerating liquids well, tolerating a regular diet, flatus, no bowel movement. Negative: nausea, vomiting Objective Vital Signs - 12hr 08/11/18 08/11/18 00:21 06:28 Temperature 98.0 F 97.7 F Pulse Rate 73 74 Respiratory 20 20 Rate Blood Pressure 141/91 137/85 O2 Sat by Pulse 93 94 Oximetry - General physical appearance no distress, no pain, other (looks better) - Eyes normal occular movement - Respiratory normal expansion, normal respiratory effort - Abdomen soft, tender (minimal in LLQ), not distended, not guarding, not rigid - Integumentary no rash, no growths, no abnormal pigmentation - Psychiatric oriented to time, oriented to person, oriented to place, speech is normal, memory intact - Labs 08/09/18 04:50 08/09/18 04:50
[2018-08-11] MEDS: MAXZIDE-25 PO SCH (11:11)
[2018-08-11] MEDS: ROCEPHIN/NS 2 GM/100 ML 2 GM/100 ML BAG IV SCH (11:11)
[2018-08-11] MEDS: PROTONIX PO SCH (11:13)
[2018-08-11] MEDS: ZESTRIL PO SCH (11:13)
[2018-08-11] MEDS: METAMUCIL PO SCH (11:13)
[2018-08-11] MEDS: VITAMIN B-1 PO SCH (11:14)
--- NOTE | 2018-08-11 15:09 | Progress Note ---
Assessment and Plan Assessment and plan: 48-year-old -Citizen Of [place] Citizen [place] male with history of hypertension and diverticulitis who [facility] with complaints of recurrent sharp abdominal pain for the past 2 days which progressively worsened overnight.CT abd and pelvis shows Mild inflammatory changes in the descending and sigmoid colon compatible some combination of chronic and/or acute diverticulitis changes; No evidence of perforation or abscess; Generalized colonic diverticulosis. Pt admitted to Medical floor. Diverticulitis- recurrent Sepsis- secondary to diverticulitis Leukocytosis Acute Pain Hypertensive urgency HTN Tobacco abuse ETOH abuse Constipation Plan: Continue IV Ceftriaxone and Flagyl; with plans to discharge on po levofloxacin 750mg daily and Flagyl 500mg q8hr to end 08/16/18 Monitor BP Continue IV hydralazine PRN Continue clondine 0.2mg patch Continue home meds: HCTZ 37.5mg daily Change to Lisinopril 20mg daily for better BP control Unable to tolerate clear diet; will make NPO with sips of water and ice chips Continue NS @100 ml/hr Continue Pain mgmt Monitor CBC Per Gen Surg will need elective partial colectomy as outpatient when inflammation has improved. pt will need to follow up with Dr. Hutchins as outpt if he decides to proceed with surgery GI following and recommends patient f/u in clinic upon discharge in 2-3 weeks to schedule outpatient colonoscopy (in approximately 4-6 weeks) for further evaluation (r/o neoplasm) once diverticulitis has resolved Consult ID following recommendations appreciated Continue to encourage and prison classification counselor for tobacco cessation and ETOH abuse cont glycerine suppository prn for constipation DVT PPX Lovenox History Interval history: Review of systems Constitutional: No fevers, no malaise, no joint pains CVS: No chest pain, no orthopnea, no dyspnea on exertion, no pedal edema GI: abdominal pain is improved, no diarrhea, no vomiting, no constipation Respiratory: No shortness of breath, no wheezing, no coughing Hospitalist Physical - Physical exam Narrative exam: General.: Appears well, no distress, nontoxic HEENT: Moist mucous membranes, extraocular muscles intact, no lymphadenopathy Neck: supple Cardiac: S1-S2 heard Lungs: clear to auscultation bilaterally Abdomen: soft , nontender, nondistended, bowel sounds positive Extremities: no edema clubbing or cyanosis Skin: no rash or lesions Neurologic: no gross focal deficits Psych: calm, and cooperative - Constitutional Vitals: Temp Pulse Resp BP Pulse Ox 98.2 F 75 20 144/85 96 08/11/18 11:41 08/11/18 11:41 08/11/18 11:41 08/11/18 11:41 08/11/18 11:41 General appearance: Present: mild distress Results - Labs CBC & Chem 7: 08/09/18 04:50 08/09/18 04:50 Labs: Laboratory Last Values WBC 7.1 K/mm3 (4.5-11.0) 08/09/18 04:50 RBC 4.14 M/mm3 (3.65-5.03) 08/09/18 04:50 Hgb 12.6 gm/dl (11.8-15.2) 08/09/18 04:50 Hct 37.2 % (35.5-45.6) 08/09/18 04:50 MCV 90 fl (84-94) 08/09/18 04:50 MCH 31 pg (28-32) 08/09/18 04:50 MCHC 34 % (32-34) 08/09/18 04:50 RDW 14.5 % (13.2-15.2) 08/09/18 04:50 Plt Count 429 K/mm3 (140-440) 08/09/18 04:50 Lymph % (Auto) 19.3 % (13.4-35.0) 08/09/18 04:50 [place] % (Auto) 10.1 % (0.0-7.3) H 08/09/18 04:50 Eos % (Auto) 2.1 % (0.0-4.3) 08/09/18 04:50 Baso % (Auto) 1.4 % (0.0-1.8) 08/09/18 04:50 Lymph # 1.4 K/mm3 (1.2-5.4) 08/09/18 04:50 [place] # 0.7 K/mm3 (0.0-0.8) 08/09/18 04:50 Eos # 0.2 K/mm3 (0.0-0.4) 08/09/18 04:50 Baso # 0.1 K/mm3 (0.0-0.1) 08/09/18 04:50 Seg Neutrophils % 67.1 % (40.0-70.0) 08/09/18 04:50 Seg Neutrophils # 4.7 K/mm3 (1.8-7.7) 08/09/18 04:50 Sodium 135 mmol/L (137-145) L 08/09/18 04:50 Potassium 4.1 mmol/L (3.6-5.0) 08/09/18 04:50 Chloride 100.4 mmol/L (98-107) 08/09/18 04:50 Carbon Dioxide 24 mmol/L (22-30) 08/09/18 04:50 Anion Gap 15 mmol/L 08/09/18 04:50 BUN 7 mg/dL (9-20) L 08/09/18 04:50 Creatinine 0.7 mg/dL (0.8-1.5) L 08/09/18 04:50 Estimated GFR > 60 ml/min 08/09/18 04:50 BUN/Creatinine Ratio 10 % 08/09/18 04:50 Glucose 91 mg/dL (75-100) 08/09/18 04:50 Lactic Acid 0.70 mmol/L (0.7-2.0) 08/07/18 06:40 Calcium 8.6 mg/dL (8.4-10.2) 08/09/18 04:50 Total Bilirubin 0.70 mg/dL (0.1-1.2) 08/07/18 04:20 AST 13 units/L (5-40) 08/07/18 04:20 ALT 16 units/L (7-56) 08/07/18 04:20 Alkaline Phosphatase 71 units/L (35-129) 08/07/18 04:20 C-Reactive Protein 9.20 mg/dL (0.00-1.30) H 08/07/18 20:27 Total Protein 7.1 g/dL (6.3-8.2) 08/07/18 04:20 Albumin 4.2 g/dL (3.9-5) 08/07/18 04:20 Albumin/Globulin Ratio 1.4 % 08/07/18 04:20 Lipase 57 units/L (13-60) 08/07/18 04:20 Urine Color Yellow (Yellow) 08/07/18 06:00 Urine Turbidity Clear (Clear) 08/07/18 06:00 Urine pH 8.0 (5.0-7.0) H 08/07/18 06:00 Ur Specific [place] 1.027 (1.003-1.030) 08/07/18 06:00 Urine Protein <15 mg/dl mg/dL (Negative) 08/07/18 06:00 Urine Glucose (UA) Neg mg/dL (Negative) 08/07/18 06:00 Urine Ketones Neg mg/dL (Negative) 08/07/18 06:00 Urine Blood Neg (Negative) 08/07/18 06:00 Urine Nitrite Neg (Negative) 08/07/18 06:00 Urine Bilirubin Neg (Negative) 08/07/18 06:00 Urine Urobilinogen 2.0 mg/dL (<2.0) 08/07/18 06:00 Ur Leukocyte Esterase Neg (Negative) 08/07/18 06:00 Urine WBC (Auto) < 1.0 /HPF (0.0-6.0) 08/07/18 06:00 Urine RBC (Auto) 2.0 /HPF (0.0-6.0) 08/07/18 06:00 Urine Mucus Few /HPF 08/07/18 06:00 Active Medications - Current Medications Current Medications: Generic Name Dose Route Start Last Admin Trade Name Freq PRN Reason Stop Dose Admin Acetaminophen 650 mg 08/07/18 08:50 Tylenol PO Q4H PRN Pain MILD(1-3)/Fever >100.5/[place] Acetaminophen/Hydrocodone Bitart 1 each 08/07/18 15:58 08/09/18 08:25 [place] 10/325 PO 1 each Q6H PRN Administration Pain, Moderate (4-6) Al Hydrox/Mg Hydrox/Simethicone 30 ml 08/10/18 15:30 08/10/18 15:18 Alum-Mag Hydrox-Simeth 096-191-75mk/5ml PO 30 ml Q4H PRN Administration Indigestion Clonidine HCl 0.2 mg 08/07/18 11:00 08/07/18 11:52 Catapres-Tts Patch TD 0.2 mg QWEEK ROCIO Administration Enoxaparin Sodium 40 mg 08/07/18 22:00 08/10/18 21:46 Lovenox SUB-Q 40 mg QDAY@2200 ROCIO Administration Glycerin 1 supp 08/09/18 11:14 Glycerin Adult 2 Gm OK QDAY PRN Constipation Hydralazine HCl 10 mg 08/07/18 09:06 08/08/18 12:34 Apresoline IV 10 mg Q4HR PRN Administration Blood Pressure Hydromorphone HCl 0.5 mg 08/07/18 15:58 08/11/18 02:07 Dilaudid IV 0.5 mg Q4H PRN Administration Pain , Severe (7-10) Ceftriaxone Sodium 2 gm in 100 mls @ 200 mls/hr 08/07/18 11:00 08/11/18 11:11 Rocephin/Ns 2 Gm/100 Ml IV 200 mls/hr Q24HR ROCIO Administration Protocol Metronidazole 500 mg in 100 mls @ 100 mls/hr 08/07/18 14:00 08/11/18 05:44 Flagyl 500 Mg/100 Ml IV 100 mls/hr Q8HR ROCIO Administration Protocol Lisinopril 40 mg 08/11/18 10:00 08/11/18 11:13 Zestril PO 40 mg QDAY ROCIO Administration Ondansetron HCl 4 mg 08/07/18 08:50 08/09/18 00:56 Zofran IV 4 mg Q8H PRN Administration Nausea And Vomiting Oxycodone/Acetaminophen 2 tab 08/09/18 12:48 08/11/18 11:11 Percocet 5/325 PO 2 tab Q4H PRN Administration Pain, Moderate (4-6) Pantoprazole Sodium 40 mg 08/09/18 10:00 08/11/18 11:13 Protonix PO 40 mg DAILY ROCIO Administration Psyllium Hydrophilic Mucilloid 1 each 08/10/18 10:00 08/11/18 11:13 Metamucil PO 1 each QDAY ROCIO Administration Sodium Chloride 10 ml 08/07/18 10:00 08/10/18 21:47 Sodium Chloride Flush Syringe 10 Ml IV 10 ml BID ROCIO Administration Sodium Chloride 10 ml 08/07/18 08:50 Sodium Chloride Flush Syringe 10 Ml IV PRN PRN LINE FLUSH Thiamine HCl 100 mg 08/09/18 10:00 08/11/18 11:14 Vitamin B-1 PO 100 mg QDAY ROCIO Administration Triamterene/HCTZ 1 each 08/09/18 10:00 08/11/18 11:11 Maxzide-25 PO 1 each QAM ROCIO Administration
[2018-08-11] MEDS: SODIUM CHLORIDE FLUSH SYRINGE 10 ML IV SCH ×2 (15:19→21:19)
[2018-08-11] MEDS: ALUM-MAG HYDROX-SIMETH 200-200-20MG/5ML PO PRN (15:34)
[2018-08-11] MEDS: LOVENOX SUB-Q SCH (21:19)
[2018-08-12] MEDS: PERCOCET 5/325 PO PRN ×4 (00:08→12:31)
[2018-08-12] MEDS: DILAUDID IV PRN ×3 (01:59→10:05)
[2018-08-12] MEDS: FLAGYL 500 MG/100 ML 500 MG/100 ML BAG IV SCH (05:58)
--- NOTE | 2018-08-12 09:52 | Progress Note ---
Assessment and Plan Cultures: 08/07/2018 Blood: no growth 08/07/2018 MRSA PCR; positive A/P: 48 year old male with a past medical history of diverticulitis, significant tobacco abuse that presents to the ED on 08/07/18 with a chief complaint of diffuse abdominal pain for the last 1-2 days. This patient is known to ID service from a previous admission on 06/17/18 with complaints of severe abdominal pain. A that time, CT of abdomen and pelvis with contrast revealed diverticulitis in the descending colon and sigmoid colon. Repeat imaging on 06/24/18 revealed worsening diverticulitis seen in the distal descending colon. Small abscess suspected adjacent to the distal sigmoid colon versus a fluid- filled diverticulum. He was treated conservatively until discharge on 06/23/18. Now admitted with: 1. Sepsis on admission: now resolved, secondary to generalized colonic diverticulitis. CT of abdomen and pelvis today shows mild inflammatory changes in the descending and sigmoid colon compatible some combination of chronic and/or acute diverticulitis changes. No evidence of perforation or abscess. No fever. U/A without pyuria. Blood cultures in progress. CRP 9.20. Surgery to treat conservatively, No urgent surgical intervention is required at this time. will f/u with GI first in a few weeks. f/u with General Surgery after c-scope done. Anticipate discharge home on levofloxacin and flagyl. 2. Tobacco abuse: discussion regarding smoking cessation Plan: -Continue Ceftriaxone and Flagyl, D6 -Anticipate discharge on levofloxacin 750mg PO QD and Flagyl 500mg PO every 8 hours for total 10 days ending 08-16-18 -Clinically stable, ID is signing off [facility] M: [phone] O:[phone] Subjective Date of service: 08/12/18 Principal diagnosis: diverticulitis Interval history: Patient seen and examined. Reports improvement in abdominal pain. Tolerating diet better. No fevers. Objective - Exam Narrative Exam: Constitutional: Alert, cooperative. No acute distress Head, Ears, Nose: Normocephalic, atraumatic. External ears, nose normal Eyes: Conjunctivae/corneas clear. No icterus. No ptosis. Neck: Supple, no meningeal signs Oral: dentition fair, multiple fillings, no thrush Cardiovascular: S1, S2 normal. Respiratory: Good air entry, clear to auscultation bilaterally GI: Soft, minor tenderness; bowel sounds + Musculoskeletal: No pedal edema, no cyanosis. Skin: No rash or abscess Hem/Lymphatic: No palpable cervical or supraclavicular nodes. No lymphangitis Psych: Mood ok. Affect normal Neurological: Awake, alert, oriented. No gross abnormality - Constitutional Vitals: Vital Signs Temp Pulse Resp BP Pulse Ox 97.5 F L 81 16 139/89 96 08/12/18 06:11 08/12/18 06:11 08/12/18 06:11 08/12/18 06:11 08/12/18 06:11 Temperature -Last 24 Hours Temperature 97.5 F Temperature 97.8 F Temperature 98.2 F Temperature 98.2 F - Labs CBC & Chem 7: 08/09/18 04:50 08/09/18 04:50
[2018-08-12] MEDS: ROCEPHIN/NS 2 GM/100 ML 2 GM/100 ML BAG IV SCH (10:05)
[2018-08-12] MEDS: MAXZIDE-25 PO SCH (10:05)
[2018-08-12] MEDS: SODIUM CHLORIDE FLUSH SYRINGE 10 ML IV SCH (10:06)
[2018-08-12] MEDS: METAMUCIL PO SCH (10:06)
[2018-08-12] MEDS: PROTONIX PO SCH (10:06)
[2018-08-12] MEDS: VITAMIN B-1 PO SCH (10:06)
[2018-08-12] MEDS: ZESTRIL PO SCH (10:21)
--- NOTE | 2018-08-12 11:18 | Discharge Summary ---
Providers - Providers Date of Admission: 08/08/18 12:35 Attending physician: ORLIN MOORE MD 08/07/18 08:52 Consult to Physician [CONS] Routine Comment: Consulting Provider: GAVIOTA CELAYA Physician Instructions: Reason For Exam: diverticulitis with sepsis 08/07/18 09:03 Consult to Physician [CONS] Routine Comment: Consulting Provider: MIRIAN BRADY Physician Instructions: Reason For Exam: diverticulitis with sepsis [facility] Condition: Stable Hospital course: 48 year old man with known history of recurrent diverticulitis who presents as of the hospital abdominal pain. He was found to have recurrent diverticulitis, he was Rx with bowel rest and IV antibiotics. His blood pressure medication optimize. The patient was counseled about improved outpatient follow-up upon discharge. He was also counseled about tobacco cessation for over 10 mins, preventive health counseling was performed for over 17 minutes. The patient needs outpatient colonoscopy after diverticulitis has resolved, he also needs outpatient elective partial colectomy. He was advised to follow up with GI and general surgery upon discharge. He was given resources to help him afford his medications as he does not have insurance. he's being discharged an oral antibiotics, he has been advised that he must complete them. Diagnosis Diverticulitis- recurrent Sepsis- secondary to diverticulitis Leukocytosis Hypertensive urgency HTN Tobacco abuse ETOH abuse Constipation Disposition: - TO HOME OR SELFCARE Time spent for discharge: 33 mins Core Measure Documentation - Palliative Care Palliative Care/ Comfort Measures: Not Applicable - Core Measures Any of the following diagnoses?: none Exam - Constitutional Vitals: Temp Pulse Resp BP Pulse Ox 97.5 F L 81 16 130/89 96 08/12/18 06:11 08/12/18 10:21 08/12/18 06:11 08/12/18 10:21 08/12/18 06:11 General appearance: Present: no acute distress, well-nourished - EENT Eyes: Present: PERRL ENT: hearing intact, clear oral mucosa - Neck Neck: Present: supple, normal ROM - Respiratory Respiratory effort: normal Respiratory: bilateral: CTA - Cardiovascular Heart Sounds: Present: S1 & S2. Absent: rub, click - Extremities Extremities: pulses symmetrical, No edema Peripheral Pulses: within normal limits - Abdominal General gastrointestinal: Present: soft, non-tender, non-distended, normal bowel sounds Male genitourinary: Present: normal - Integumentary Integumentary: Present: clear, warm, dry - Musculoskeletal Musculoskeletal: gait normal, strength equal bilaterally - Psychiatric Psychiatric: appropriate mood/affect, intact judgment & insight - Neurologic Neurologic: CNII-XII intact, moves all extremities Plan Follow up with: GAVIOTA CELAYA MD [Staff Physician] - 7 Days YARED AMBROSE MD [Staff Physician] - 7 Days [place] PARRISHTULSA MD BABITA [Primary Care Provider] - 3-5 Days Prescriptions: metroNIDAZOLE [Flagyl] 500 mg PO Q8HR 5 Days tablet Glycerin Adult 2 gm 1 supp [place] QDAY PRN #30 supp.rect PRN Reason: Constipation levoFLOXacin [Levaquin TAB] 750 mg PO QDAY 5 Days tablet Psyllium Seed (with Sugar) [Metamucil] 1 each PO QDAY #30 packet HYDROcodone/APAP 5-325 [[place] 5-325 mg TAB] 1 each PO Q6HR PRN #14 tablet PRN Reason: Pain amLODIPine [Norvasc] 10 mg PO DAILY #30 tab Lisinopril [Zestril TAB] 40 mg PO QDAY #30 tablet
[2018-08-12 12:17] VITALS: BP 134/86
== END 2018-08-12 13:40 | disposition home or self-care (01) | DRG 872 ==
LOC: ED 04:06 → 3A 07:24 → OBSVTOIN 08-08 12:35
PROVIDERS: ADMIT Internal Medicine; ATTEND Internal Medicine
DX: A41.9 Sepsis, unspecified organism (principal); K57.32 Diverticulitis of large intestine without perforation or abscess without bleeding; I10 Essential (primary) hypertension; F41.9 Anxiety disorder, unspecified; K59.00 Constipation, unspecified; I16.0 Hypertensive urgency; F10.10 Alcohol abuse, uncomplicated; F17.210 Nicotine dependence, cigarettes, uncomplicated; Y90.0 Blood alcohol level of less than 20 mg/100 ml; Z79.899 Other long term (current) drug therapy; Z71.6 Tobacco abuse counseling; Z82.49 Family history of ischemic heart disease and other diseases of the circulatory system
CPT/HCPCS: 36415; 74177; 80048; 80053; 81001; 82140; 83690; 85025; 86140; 87040; 87116; 96365; 96375; 96376; 99406; G0378; J0360; J0696; J1170; J1650; J2270; J2405; J2543; J7030; Q9967

== ENCOUNTER 2020-07-28 22:24 | Emergency (ER) | payer SELFPAY ==
[2020-07-29 00:56] LABS: Amphetamine Screen,Urine PRESUMPTIVE NEGATIVE; Benzodiazepines Screen,Urine PRESUMPTIVE NEGATIVE; Cannabinoid Screen,Urine PRESUMPTIVE NEGATIVE; Cocaine Screen,Urine PRESUMPTIVE NEGATIVE; Methadone Screen,Urine PRESUMPTIVE NEGATIVE; Opiate Screen,Urine PRESUMPTIVE NEGATIVE
[2020-07-29 01:08] LABS: Hematocrit 41.7 % (35.5-45.6); Hemoglobin 15.6 gm/dl (11.8-15.2); Mean Corpuscular HGB Conc 37 % (32-34); Mean Corpuscular Volume 89 fl (84-94); Platelet Count 376 K/mm3 (140-440); Red Cell Distribution Width 15.8 % (13.2-15.2)
--- NOTE | 2020-07-29 01:12 | XRay Report ---
CHEST 2 VIEWS INDICATION: Chest Pain. COMPARISON: 06/17/2018 FINDINGS: SUPPORT DEVICES: None. HEART: Within normal limits. There are partially calcified left hilar lymph nodes. LUNGS/PLEURA: No acute air space or interstitial disease. No pneumothorax. ADDITIONAL FINDINGS: None. IMPRESSION: 1. No acute findings. Signer Name: Sherwin Spence MD Signed: 07/29/2020 1:07 AM Workstation Name: [id number]
[2020-07-29 01:33] LABS: Alanine Aminotransferase 50 units/L (7-56); Albumin 4.9 g/dL (3.9-5); BUN/Creatinine Ratio 9; Blood Urea Nitrogen 8 mg/dL (9-20); Calcium 9.2 mg/dL (8.4-10.2); Hemolysis Index 12
[2020-07-29 01:46] LABS: Basophils % (Auto) 0.9 % (0.0-1.8); Eosinophils % (Auto) 2.3 % (0.0-4.3); Lymphocytes % (Auto) 43.8 % (13.4-35.0); Monocytes % (Auto) 6.5 % (0.0-7.3)
[2020-07-29 01:47] LABS: Eosinophils # (Auto) 0.1 K/mm3 (0.0-0.4); Lymphocytes # (Auto) 2.3 K/mm3 (1.2-5.4); Monocytes # (Auto) 0.3 K/mm3 (0.0-0.8)
[2020-07-29] MEDS ORDERED: SODIUM CHLORIDE 0.9% 1000 ML 1,000 ML IV ONE (02:42)
[2020-07-29] MEDS ORDERED: KETOROLAC 30 MG/1 ML INJ IV ONE (02:42)
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
[2020-07-29 04:40] VITALS: BP 124/79
--- NOTE | 2020-07-29 09:38 | Electrocardiograph Report ---
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
== END 2020-07-29 05:47 | disposition home or self-care (01) ==
LOC: ED 22:24
DX: S23.8XXA Sprain of other specified parts of thorax, initial encounter (principal); S43.402A Unspecified sprain of left shoulder joint, initial encounter; R74.8 Abnormal levels of other serum enzymes; I10 Essential (primary) hypertension; Z79.899 Other long term (current) drug therapy; X58.XXXA Exposure to other specified factors, initial encounter; Y93.89 Activity, other specified; Y92.89 Other specified places as the place of occurrence of the external cause; Y99.8 Other external cause status
CPT/HCPCS: 36415; 71046; 80053; 80307; 82550; 83735; 84484; 85007; 85025; 93005; 96361; 96374; 99284; J1885; J7030

== ENCOUNTER 2021-11-20 07:33 | Emergency (ER) | payer SELFPAY ==
[2021-11-20 09:59] LABS: Alanine Aminotransferase 34 units/L (7-56); Albumin 4.3 g/dL (3.9-5); Blood Urea Nitrogen 9 mg/dL (9-20); Calcium 9.5 mg/dL (8.4-10.2); Hemolysis Index 0
[2021-11-20 10:02] LABS: BUN/Creatinine Ratio 13
[2021-11-20 10:53] LABS: Hematocrit 38.7 % (35.5-45.6); Hemoglobin 13.1 gm/dl (11.8-15.2); Mean Corpuscular HGB Conc 34 % (32-34); Mean Corpuscular Volume 92 fl (84-94); Platelet Count 554 K/mm3 (140-440); Red Blood Count 4.23 M/mm3 (3.65-5.03); Red Cell Distribution Width 14.1 % (13.2-15.2)
[2021-11-20 11:57] LABS: Bacteria,Urine 1+ /HPF (Negative); Mucus,Urine 1+ /HPF; WBC,Urine < 1.0 /HPF (0.0-6.0)
[2021-11-20 12:24] LABS: Bilirubin,Urine Negative (Negative); Blood,Urine Negative (Negative); Color,Urine Yellow (Yellow)
[2021-11-20] MEDS ORDERED: ONDANSETRON 4 MG/2 ML INJ IV ONE (15:33)
[2021-11-20] MEDS ORDERED: fentaNYL 100 MCG/2 ML INJ IV ONE ×2 (15:33→16:42)
[2021-11-20] MEDS ORDERED: SODIUM CHLORIDE 0.9% 1000 ML 1,000 ML IV ONE (15:35)
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
[2021-11-20] MEDS ORDERED: PIPERACIL/TAZOBACTA 4.5/NS 100 4.5 GM/100 ML VIAL IV ONE (17:45)
[2021-11-20] MEDS ORDERED: hydrALAZINE 20 MG/1 ML INJ IV ONE (18:33)
[2021-11-20] MEDS ORDERED: HYDROmorphone 1 MG/1 ML INJ IV ONE (18:41)
[2021-11-20 19:56] VITALS: BP 149/82
--- NOTE | 2021-11-21 09:08 | Electrocardiograph Report ---
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
== END 2021-11-20 21:17 | disposition home or self-care (01) ==
LOC: ED 07:33
DX: K57.92 Diverticulitis of intestine, part unspecified, without perforation or abscess without bleeding (principal); I10 Essential (primary) hypertension; F17.200 Nicotine dependence, unspecified, uncomplicated; Z98.890 Other specified postprocedural states; Z79.899 Other long term (current) drug therapy
CPT/HCPCS: 36415; 74177; 80053; 81001; 84484; 85027; 93005; 96361; 96365; 96375; 96376; 99284; J0360; J1170; J2405; J2543; J3010; J7030; Q9967